=== PATIENT | male | born 1970 | race Caucasian/White ===

== ENCOUNTER 2016-08-29 10:09 | Inpatient (IN) | payer BC ==
[2016-08-29] VITALS (10 sets, daily range): BP systolic 112–171; BP diastolic 75–100
[~2016-08-29] VITALS: Ht 180.3 cm; Wt 158.4 kg
[2016-08-29] MEDS ORDERED: FUROSEMIDE 40 MG/4 ML VIAL. IVP ONE ×2 (10:15→18:00)
[2016-08-29] MEDS ORDERED: NITROGLYCERIN SUBLINGUAL 0.4 MG BOTTLE OF 25. SL PRN (10:15)
--- NOTE | 2016-08-29 10:18 | EKG ---
[facility] [address] [place] [address] Test Date: 2016-08-29 Test Time: 10:14:15 Pat Name: RICHARD CHARLES Department: Room: Gender: M Rn Case Manager: : 1970 Requested By: ANA SKELTON Order Number: [id number] Reading MD: Measurements Intervals Atkinson Rate: 116 P: -1 NM: 138 QRS: 70 QRSD: 86 T: -11 QT: 366 QTc: 508 Interpretive Statements SINUS TACHYCARDIA QRS(T) CONTOUR ABNORMALITY CONSIDER ANTEROSEPTAL MYOCARDIAL DAMAGE CONSIDER INFERIOR MYOCARDIAL DAMAGE RI6.01 Unconfirmed report No previous ECG available for comparison
[2016-08-29 10:20] LABS: HCO3 ABG 22 mmol/L (21-28); PCO2 ABG 34 mmHg (35-46); PH ABG 7.44 (7.35-7.45); SAT O2 ABG 73 % (92-99)
[2016-08-29 10:35] LABS: FIO2 ABG 100; PO2 ABG < 42 mmHg (75-108)
[2016-08-29 10:38] LABS: BASO # 0.1 x10^3/uL (0.0-0.2); BASO % 1 % (0-3); EOS % 1 % (0-3); HEMATOCRIT 44.2 % (39.0-53.0); HEMOGLOBIN 15.7 g/dL (13.0-17.5); LYMPH # 1.9 x10^3/uL (1.0-4.8); LYMPH % 16 % (24-48); MEAN CORPUSCULAR HEMOGLOBIN 35 pg (25-35); MEAN CORPUSCULAR HGB CONC 36 g/dL (31-37); MEAN CORPUSCULAR VOLUME 98 fL (79-100); MONO % 11 % (0-9); NEUT % 71 % (31-73); PLATELET COUNT 198 x10^3/uL (140-400); RED CELL DISTRIBUTION WIDTH 13.6 % (11.5-14.5); WHITE BLOOD COUNT 11.8 x10^3/uL (4.0-11.0)
--- NOTE | 2016-08-29 10:39 | PHYS DOC ---
Past Medical History Past Medical History: Diabetes-Type I, Hypertension Additional Past Surgical Histo: abdominoplasty Alcohol Use: None Drug Use: None Adult General Chief Complaint Chief Complaint: shortness of breath LASHAWN HARDIN Is a pleasant 46-year-old male with sudden onset of shortness of breath is progressively gotten worse and chest are noted. He is admitted to the hospital at [facility] for last 2 weeks and discharged yesterday after being treated for a MSRA infection of the abdominal wall. He's been suffering from this infection for last year as admitted to the hospital with increasing redness and swelling. He said he is receiving IV antibiotics and was at home trying to mobilize. He noted increased shortness of breath peripheral edema that he believes is associated with too much fluid resuscitation during his hospitalization. He denies any fever, chest pain just shortness of breath like a tightness across his chest. He denies any cough, runny nose, abdominal pain, nausea, vomiting, diarrhea. Patient has had no change in medications he's been able to keep his sugars somewhat controlled this of breath is new and he has no history of asthma, COPD or emphysema. he was on vancomycin IV in the hospital and converted to doxycycline and discharged home Differential diagnosis: Acute myocardial ischemia, heart failure, cardiac tamponade, bronchospasm, pulmonary embolism, pneumothorax, pulmonary infection i.e. bronchitis or pneumonia, upper airway obstruction, anaphylaxis, aspiration , psychogenic, pulmonary contusion, toxidrome, pneumomediastinum, noncardiogenic pulmonary edema or ARDS, COPD, tuberculosis, cystic fibrosis, asthma, high altitude pulmonary edema, valvular dysfunction, cardiac dysrhythmia , stroke, neuromuscular diseases like myasthenia gravis gravis, ALS, Guillain- Trejo syndrome, metabolic acidosis to include diabetic ketoacidosis, sepsis, and obstructive disorders like massive obesity On initial presentation my concern is fluid overload congestive heart failure flash pulmonary edema, possibly cardiac ischemia causing valvular abnormalities or rupture of a papillary muscle. Patient also have a flash ards picture based on sepsis, at this point patient is mentating well and stable questions speaking in 4-6 word sentences on CPAP. I initially thought was to change him to BiPAP for any diuresing with an emergent dose of Lasix and nitrates sublingually her to mobilize the extra fluid from his lungs. Initial ABG was completed. ABG timed 10:20 AM Demster is a pH 7.44 PCO2 of 33 PaO2 of 38 bicarbonate of 22 base excess of 0.8 negative this demonstrates that he is not oxygen well and he is likely having an obstructive process within the lower lung ruiz. Again my initial thought is congestive heart failure. Patient was converted to BiPAP. Review of Systems Review of Systems Constitutional: Denies fever or chills [] Eyes: Denies change in visual acuity, redness, or eye pain [] HENT: Denies nasal congestion or sore throat [] Respiratory he does complained of of breath with nonproductive cough Cardiovascular: No additional information not addressed in HPI [] GI: Denies abdominal pain, nausea, vomiting, bloody stools or diarrhea [] : Denies dysuria or hematuria [] Musculoskeletal: Denies back pain or joint pain [] Integument: Is consider redness tenderness to palpation over the entire anterior abdomen. This is the area of his MRSA infection Neurologic: Denies headache, focal weakness or sensory changes [] Endocrine: Denies polyuria or polydipsia [] Current Medications Current Medications Current Medications Medications (Trade) Dose Ordered Sig/Vale Start Time Stop Time Status Last Admin Dose Admin Furosemide (Lasix) 80 mg 1X ONCE 08/29/16 10:15 08/29/16 10:31 DC 08/29/16 10:36 80 MG Nitroglycerin (Nitrostat) 0.4 mg PRN Q5MIN PRN 08/29/16 10:15 Allergies Allergies Allergies Coded Allergies Type Severity Reaction Last Updated Verified Penicillins Allergy Intermediate 08/29/16 Yes Physical Exam Physical Exam Vital signs abnormal on arrival patient hypoxic satting in the low 70s at 72-73 % vital. Patient very tachycardic at 117 patient hypertensive at 160/110. Constitutional: Well developed, well nourished she is morbidly obese with a protuberant abdomen in respiratory distress. He is diaphoretic he is tachypnea tachycardic with a CPAP machine on. Does not demonstrate centralized cyanosis at this time and 46 with sentences. HENT: Normocephalic, atraumatic, bilateral external ears normal, oral pharynx was not evaluated as CPAP machine is present on the patient's face Eyes: PERRLA, EOMI, conjunctiva normal, no discharge. [] Neck: Normal range of motion, no tenderness, supple, no stridor. [] Cardiovascular: Noted sinus tachycardia on physical exam Lungs & Thorax: She has decreased breath sounds bilaterally with coarse rhonchi throat the bases and crackles Abdomen: Bowel sounds normal, soft, no tenderness, no masses, no pulsatile masses. His abdomen was considerable soft tissue Abdomen no pulsatile mass noted. Guarding rebound or organomegaly Skin: There is significant erythema to his abdominal wall local focal tenderness around the umbilicus. Extremities: No tenderness, no cyanosis, no clubbing, ROM intact, no significant +2 pitting edema to the mid thigh bilaterally Neurologic: Alert and oriented X 3, normal motor function, normal sensory function, no focal deficits noted. [] Psychologic: Affect is anxious but very appropriate Current Patient Data Vital Signs Vital Signs Date Time Temp Pulse Resp B/P (MAP) Pulse Ox O2 Delivery O2 Flow Rate FiO2 08/29/16 10:26 97 BiPAP/CPAP Lab Values Laboratory Tests Test 08/29/16 10:11 08/29/16 10:25 O2 Saturation 73 % (92-99) L Arterial Blood pH 7.44 (7.35-7.45) Arterial Blood pCO2 at Patient Temp 34 mmHg (35-46) L Arterial Blood pO2 at Patient Temp < 42 mmHg (75-108) *L Arterial Blood HCO3 22 mmol/L (21-28) Arterial Blood Base Excess -1 mmol/L (-3-3) FiO2 100 White Blood Count 11.8 x10^3/uL (4.0-11.0) H Red Blood Count 4.50 x10^6/uL (4.30-5.70) Hemoglobin 15.7 g/dL (13.0-17.5) Hematocrit 44.2 % (39.0-53.0) Mean Corpuscular Volume 98 fL (79-100) Mean Corpuscular Hemoglobin 35 pg (25-35) Mean Corpuscular Hemoglobin Concent 36 g/dL (31-37) Red Cell Distribution Width 13.6 % (11.5-14.5) Platelet Count 198 x10^3/uL (140-400) Neutrophils (%) (Auto) 71 % (31-73) Lymphocytes (%) (Auto) 16 % (24-48) L Monocytes (%) (Auto) 11 % (0-9) H Eosinophils (%) (Auto) 1 % (0-3) Basophils (%) (Auto) 1 % (0-3) Neutrophils # (Auto) 8.4 x10^3uL (1.8-7.7) H Lymphocytes # (Auto) 1.9 x10^3/uL (1.0-4.8) Monocytes # (Auto) 1.3 x10^3/uL (0.0-1.1) H Eosinophils # (Auto) 0.1 x10^3/uL (0.0-0.7) Basophils # (Auto) 0.1 x10^3/uL (0.0-0.2) Sodium Level 142 mmol/L (136-145) Potassium Level 3.7 mmol/L (3.5-5.1) Chloride Level 103 mmol/L (98-107) Carbon Dioxide Level 29 mmol/L (21-32) Anion Gap 10 (6-14) Blood Urea Nitrogen 8 mg/dL (8-26) Creatinine 0.9 mg/dL (0.7-1.3) Estimated GFR (Cockcroft-Gault) 91.7 BUN/Creatinine Ratio 9 (6-20) Glucose Level 266 mg/dL (70-99) H Calcium Level 8.5 mg/dL (8.5-10.1) Magnesium Level 1.7 mg/dL (1.8-2.4) L Total Bilirubin 0.6 mg/dL (0.2-1.0) Aspartate Amino Transferase (AST) 25 U/L (15-37) Alanine Aminotransferase (ALT) 37 U/L (16-63) Alkaline Phosphatase 76 U/L (46-116) Troponin I Quantitative 0.052 ng/mL (0.000-0.055) Total Protein 6.5 g/dL (6.4-8.2) Albumin 3.1 g/dL (3.4-5.0) L Albumin/Globulin Ratio 0.9 (1.0-1.7) L Laboratory Tests 08/29/16 10:25 Laboratory Tests 08/29/16 10:25 EKG EKG [] Radiology/Procedures Radiology/Procedures [] Course & Med Decision Making Course & Med Decision Making Pertinent Labs and Imaging studies reviewed. (See chart for details) Is now 10:27 AM patient already began to return to normal color saturations are 97% on the BiPAP machine patient has a his fci pressure of 16 and asked that are pressure 6 PEEP of 10 he is moving air better feeling better although he is somewhat tired. We will watch him for signs of fatigue and intubated with necessary given his permission. Initial EKG timed 10:14 AM 08/29/2016 demonstrates a rate of 116 sinus tachycardia with normal P waves normal QRS width QRS width of 86. QTc is mildly prolonged at 508. There is no ST segment T-wave changes consistent with acute cardiac ischemia. We will continue to monitor his heart rate is to improves with supportive care. Is now 11:03 AM patient is feeling markedly better he's produced almost 900 mL' s of dark urine he is feeling markedly better is no longer diaphoretic his color is improved. His lung exam is improved Since his troponin is 0.52 is borderline, does have a slight elevated white blood cell count 11.8, on his ABG demonstrates oxygen saturation is 73% pH of 7.44 PCO2 of 34 PO2 of less than 42 demonstrates an obstruction to oxygenation. He secondary to fluid collection in his lungs. Chest x-ray time 11:06 AM 08/29/2016 demonstrates significant cardiomegaly with increased cephalization of the mediastinal areas of the lungs consistent with congestive heart failure. Read by Dr. Nolasco Laboratory Tests Test 10:11 08/29/16 10:25 O2 Saturation 73 % (92-99) Arterial Blood pH 7.44 (7.35-7.45) Arterial Blood pCO2 at Patient Temp 34 mmHg (35-46) Arterial Blood pO2 at Patient Temp < 42 mmHg (75-108) Arterial Blood HCO3 22 mmol/L (21-28) Arterial Blood Base Excess -1 mmol/L (-3-3) FiO2 100 White Blood Count 11.8 x10^3/uL (4.0-11.0) Red Blood Count 4.50 x10^6/uL (4.30-5.70) Hemoglobin 15.7 g/dL (13.0-17.5) Hematocrit 44.2 % (39.0-53.0) Mean Corpuscular Volume 98 fL (79-100) Mean Corpuscular Hemoglobin 35 pg (25-35) Mean Corpuscular Hemoglobin Concent 36 g/dL (31-37) Red Cell Distribution Width 13.6 % (11.5-14.5) Platelet Count 198 x10^3/uL (140-400) Neutrophils (%) (Auto) 71 % (31-73) Lymphocytes (%) (Auto) 16 % (24-48) Monocytes (%) (Auto) 11 % (0-9) Eosinophils (%) (Auto) 1 % (0-3) Basophils (%) (Auto) 1 % (0-3) Neutrophils # (Auto) 8.4 x10^3uL (1.8-7.7) Lymphocytes # (Auto) 1.9 x10^3/uL (1.0-4.8) Monocytes # (Auto) 1.3 x10^3/uL (0.0-1.1) Eosinophils # (Auto) 0.1 x10^3/uL (0.0-0.7) Basophils # (Auto) 0.1 x10^3/uL (0.0-0.2) Sodium Level 142 mmol/L (136-145) Chloride Level 103 mmol/L (98-107) Carbon Dioxide Level 29 mmol/L (21-32) Anion Gap 10 (6-14) Blood Urea Nitrogen 8 mg/dL (8-26) Estimated GFR (Cockcroft-Gault) 91.7 BUN/Creatinine Ratio 9 (6-20) Glucose Level 266 mg/dL (70-99) Lactic Acid Level 2.0 mmol/L (0.4-2.0) Calcium Level 8.5 mg/dL (8.5-10.1) Total Bilirubin 0.6 mg/dL (0.2-1.0) Aspartate Amino Transf (AST/SGOT) 25 U/L (15-37) Alkaline Phosphatase 76 U/L (46-116) Troponin I Quantitative 0.052 ng/mL (0.000-0.055) Total Protein 6.5 g/dL (6.4-8.2) Albumin 3.1 g/dL (3.4-5.0) Albumin/Globulin Ratio 0.9 (1.0-1.7) Wallpaperer note: On-call internal medicine physician to initially at 11 AM Wallpaperer called at of the service 11:00 am Consult called back at 11:08 am Discussed the case I presented and they agreed with admission. Time of acceptance 11:08 []/Treatment empirically for low-grade fever we agreed on Vibramycin, patient is presently on oral doxycycline we will discontinue that medication blood cultures completed, lactic acid is 2. Impression: congestive heart failure, abdominal wall cellulitis, hypoxia respiratory insufficiency disPosition: Admission to the ICU internal medicine. I spent approximately 45-50 minutes working and engaged directly in the patient care providing critical care evaluation this includes but not limited to time spent engaged in work directly related to the individual patients care. I spent time at the bedside, reviewing test results, discussing the case with staff, documenting the medical record and time spent with EMS discussing specific treatment issues when the patient presented and during his evaluation. Dragon Disclaimer Dragon Disclaimer This electronic medical record was generated, in whole or in part, using a voice recognition dictation system. Departure Departure Impression: Primary Impression: Congestive heart failure Additional Impressions: Hypoxia Respiratory insufficiency Cellulitis Disposition: 09 ADMITTED INPATIENT Admitting Physician: Vinay Rogel Condition: GUARDED Problem Qualifiers BIRDIE NOLASCO MD Aug 29, 2016 10:39
[2016-08-29 10:51] LABS: CALCIUM 8.5 mg/dL (8.5-10.1); CREATININE 0.9 mg/dL (0.7-1.3); GFR 91.7; POTASSIUM 3.7 mmol/L (3.5-5.1)
[2016-08-29 10:58] LABS: ALBUMIN 3.1 g/dL (3.4-5.0); ALBUMIN/GLOBULIN RATIO 0.9 (1.0-1.7); MAGNESIUM 1.7 mg/dL (1.8-2.4); TOTAL BILIRUBIN 0.6 mg/dL (0.2-1.0); TOTAL PROTEIN 6.5 g/dL (6.4-8.2)
[2016-08-29 11:07] LABS: CKMB MASS 0.6 ng/mL (0.0-3.6)
[2016-08-29] MEDS ORDERED: VANCOMYCIN 1GM IVPB FOR OMNI 250 ML IV ONE (11:15)
--- NOTE | 2016-08-29 11:26 | RAD ---
INDICATION: RESPIRATORY DISTRESS COMPARISON: None. FINDINGS: Single view of chest obtained. The cardiomediastinal silhouette is enlarged. Prominent interstitial markings bilaterally. Hazy opacity in the left perimediastinal region. IMPRESSION: Increased interstitial markings left greater than right. Could be secondary to pulmonary vascular congestion or interstitial infiltrate. There is also hazy opacity in the left perimediastinal region. This could be secondary to enlarged mediastinum within the region or a region of consolidation adjacent to the mediastinum. The cardiac silhouette is enlarged.
[2016-08-29] MEDS ORDERED: VANCOMYCIN 2 GM in IV NORMAL SALINE 500ML BAG 500 ML IV ONE (11:30)
--- NOTE | 2016-08-29 11:55 | ACF ---
Admit Criteria Forms Admit Criteria Forms Admit Criteria Forms HEART FAILURE: COMMON COMPLICATIONS (Place 'X' for any and all applicable criteria): Ongoing inpatient care may be indicated for heart failure with 1 or more of the following (1)(2)(3)(4)(5)(6)(7)(8): [ ]I. New-onset heart failure [ ]II. Acute cardiac ischemia causing or associated with failure [ ]III. Ongoing need for care for primary condition requiring frequent therapy adjustments because of changes in cardiac function (eg, drug dosage changes for drugs that are renally metabolized) [X ]IV. Complications of heart failure, including 1 or more of the following: [ ]a) Hemodynamic instability [ ]b) Pericardial effusion [ ]c) Symptomatic pleural effusion [ ]d) Hypoxemia [ ]e) Tachypnea [ X]f) Dyspnea [ ]g) Syncope [ ]h) Altered mental status [ ]i) Acute renal insufficiency that is severe (reduction of more than 50% in estimated glomerular filtration rate from baseline) or progressive reduction of more than 25% in estimated glomerular filtration rate from baseline, with creatinine continuing to rise) [ ]j) Debilitating anasarca (eg tissue breakdown with infection, inability to void due to edema) (E) [ ]k) Clinically significant metabolic abnormalities due to heart failure (eg, new-onset metabolic acidosis) Extended stay may be needed until ALL of the following are present (1)(3)(18)(41 )(55) [ ]a) Hemodynamic stability [ ]b) Stable and effective diuretic regimen established (or patient on stable dialysis regimen if in chronic renal failure) [ ]c) Volume status acceptable on oral medication [ ]d) Breathing comfortably at rest [ ]e) Saturation of arterial oxygen greater than 90% or at acceptable baseline [ ]f) Pulmonary edema absent or improved [ ]g) Peripheral or sacral edema absent or improved [ ]h) Renal function stable and manageable at a lower level of care [ ]i) Complications (eg, pleural effusion) resolved or manageable at a lower level of care [ ]g) Patient or caregiver has received written discharge instructions or educational material addressing activity level, diet, discharge medications, follow-up appointment, weight monitoring, and what to do if symptoms worsen.(25)(26) The original [employer] content created by [facility] [employer] has been revised. The portions of the content which have been revised are identified through the use of italic text, and [facility] has neither reviewed nor approved the modified material.All other unmodified content is copyright [facility]. Please see references footnoted in the original [facility] edition 2014 NEAL DE LOS SANTOS Aug 29, 2016 11:55
[2016-08-29 12:17] LABS: HCO3 ABG 24 mmol/L (21-28); PCO2 ABG 35 mmHg (35-46); PH ABG 7.45 (7.35-7.45); PO2 ABG 74 mmHg (75-108); SAT O2 ABG 94 % (92-99)
[2016-08-29 13:14] LABS: FIO2 ABG 90
--- NOTE | 2016-08-29 14:18 | PDOC1 ---
History and Physical History of Present Illness History of Present Illness Date of exam: 08/29/2016 Chief complaint: Shortness of breath History of present illness: A 46-year-old male patient with prior history of type 2 diabetes mellitus and and hypertension admitted to the hospital to ER for sudden onset of shortness of breath for one day. While patient was trying to walk she noticed increased shortness of breath day before yesterday he was discharged from [facility] after he was treated for a abdominal cellulitis. As per the patient he received lots of IV fluids during his stay. At the time of his admission patient was hypoxic he was requiring a BiPAP, also he did respond well with the IV diuresis he received a 80 mg of IV Lasix in the ER. At the time of examination patient is seen in critical care unit, resting comfortably on BiPAP, denies any chest pain however still have some shortness of breath. Denies any fever or chills his abdominal wall cellulitis is improving. Past medical history: Hypertension, diabetes mellitus, depression Family history: Hypertension Personal history no smoking no alcohol or drug abuse Surgical history abdominoplasty Current Problem List Problem List Problems Medical Problems: (1) Cellulitis Status: Acute (2) Congestive heart failure Status: Acute (3) Hypoxia Status: Acute (4) Respiratory insufficiency Status: Acute Current Medications Current Medications Current Medications Medications (Trade) Dose Ordered Sig/Vale Start Time Stop Time Status Last Admin Dose Admin Furosemide (Lasix) 80 mg 1X ONCE 08/29/16 10:15 08/29/16 10:31 DC 08/29/16 10:36 80 MG Nitroglycerin (Nitrostat) 0.4 mg PRN Q5MIN PRN 08/29/16 10:15 Vancomycin HCl 250 ml @ 250 mls/hr 1X ONCE 08/29/16 11:15 08/29/16 12:14 UNV Vancomycin HCl 2 gm/Sodium Chloride 500 ml @ 250 mls/hr 1X ONCE 08/29/16 11:30 08/29/16 13:29 DC Allergies Allergies Allergies Coded Allergies Type Severity Reaction Last Updated Verified Penicillins Allergy Intermediate 08/29/16 Yes ROS Review of System CONSTITUTIONAL: No fever or chills EYES: No recent changes SKIN: No rash or itching CARDIOVASCULAR: No chest pain, syncope, palpitations, or edema RESPIRATORY: SOB GASTROINTESTINAL: No nausea, vomiting or abdominal pain NEUROLOGICAL: No headaches or weakness ENDOCRINE: No cold or heat intolerance GENITOURINARY: No urgency or frequency of urination MUSCULOSKELETAL: No back pain or joint pain LYMPHATICS: No enlarged lymph nodes PSYCHIATRIC: No anxiety or depression Physical Exam Physical Exam GEN.: No apparent distress. Alert and oriented times 3, on bipap HEENT: Head is normocephalic, atraumatic NECK: Supple. LUNGS: Rales and decreased BS HEART: RRR, S1, S2 present. Peripheral pulses intact ABDOMEN: Soft, nontender. Positive bowel sounds. Distended, rash resolving. EXTREMITIES: severe edema. NEUROLOGIC: Normal speech, normal tone PSYCHIATRIC: Normal affect, normal mood. SKIN: rash round umbilicus, and scrotum Vitals Vitals Vital Signs Date Time Temp Pulse Resp B/P (MAP) Pulse Ox O2 Delivery O2 Flow Rate FiO2 08/29/16 13:00 95 BiPAP/CPAP 08/29/16 10:10 100.2 119 26 160/100 (120) 100.2 Labs Labs Laboratory Tests Test 08/29/16 10:11 08/29/16 10:25 08/29/16 11:59 08/29/16 13:25 O2 Saturation 73 % (92-99) 94 % (92-99) Arterial Blood pH 7.44 (7.35-7.45) 7.45 (7.35-7.45) Arterial Blood pCO2 at Patient Temp 34 mmHg (35-46) 35 mmHg (35-46) Arterial Blood pO2 at Patient Temp < 42 mmHg (75-108) 74 mmHg (75-108) Arterial Blood HCO3 22 mmol/L (21-28) 24 mmol/L (21-28) Arterial Blood Base Excess -1 mmol/L (-3-3) 1 mmol/L (-3-3) FiO2 100 90 White Blood Count 11.8 x10^3/uL (4.0-11.0) Red Blood Count 4.50 x10^6/uL (4.30-5.70) Hemoglobin 15.7 g/dL (13.0-17.5) Hematocrit 44.2 % (39.0-53.0) Mean Corpuscular Volume 98 fL (79-100) Mean Corpuscular Hemoglobin 35 pg (25-35) Mean Corpuscular Hemoglobin Concent 36 g/dL (31-37) Red Cell Distribution Width 13.6 % (11.5-14.5) Platelet Count 198 x10^3/uL (140-400) Neutrophils (%) (Auto) 71 % (31-73) Lymphocytes (%) (Auto) 16 % (24-48) Monocytes (%) (Auto) 11 % (0-9) Eosinophils (%) (Auto) 1 % (0-3) Basophils (%) (Auto) 1 % (0-3) Neutrophils # (Auto) 8.4 x10^3uL (1.8-7.7) Lymphocytes # (Auto) 1.9 x10^3/uL (1.0-4.8) Monocytes # (Auto) 1.3 x10^3/uL (0.0-1.1) Eosinophils # (Auto) 0.1 x10^3/uL (0.0-0.7) Basophils # (Auto) 0.1 x10^3/uL (0.0-0.2) Sodium Level 142 mmol/L (136-145) Potassium Level 3.7 mmol/L (3.5-5.1) Chloride Level 103 mmol/L (98-107) Carbon Dioxide Level 29 mmol/L (21-32) Anion Gap 10 (6-14) Blood Urea Nitrogen 8 mg/dL (8-26) Creatinine 0.9 mg/dL (0.7-1.3) Estimated GFR (Cockcroft-Gault) 91.7 BUN/Creatinine Ratio 9 (6-20) Glucose Level 266 mg/dL (70-99) Lactic Acid Level 2.0 mmol/L (0.4-2.0) 1.2 mmol/L (0.4-2.0) Calcium Level 8.5 mg/dL (8.5-10.1) Magnesium Level 1.7 mg/dL (1.8-2.4) Total Bilirubin 0.6 mg/dL (0.2-1.0) Aspartate Amino Transf (AST/SGOT) 25 U/L (15-37) Alanine Aminotransferase (ALT/SGPT) 37 U/L (16-63) Alkaline Phosphatase 76 U/L (46-116) Creatine Kinase 124 U/L (39-308) Creatine Kinase MB (Mass) 0.6 ng/mL (0.0-3.6) Creatine Kinase MB Relative Index 0.5 % (0-4) Troponin I Quantitative 0.052 ng/mL (0.000-0.055) Total Protein 6.5 g/dL (6.4-8.2) Albumin 3.1 g/dL (3.4-5.0) Albumin/Globulin Ratio 0.9 (1.0-1.7) Laboratory Tests Test 08/29/16 10:11 08/29/16 10:25 08/29/16 11:59 08/29/16 13:25 O2 Saturation 73 % (92-99) 94 % (92-99) Arterial Blood pH 7.44 (7.35-7.45) 7.45 (7.35-7.45) Arterial Blood pCO2 at Patient Temp 34 mmHg (35-46) 35 mmHg (35-46) Arterial Blood pO2 at Patient Temp < 42 mmHg (75-108) 74 mmHg (75-108) Arterial Blood HCO3 22 mmol/L (21-28) 24 mmol/L (21-28) Arterial Blood Base Excess -1 mmol/L (-3-3) 1 mmol/L (-3-3) FiO2 100 90 White Blood Count 11.8 x10^3/uL (4.0-11.0) Red Blood Count 4.50 x10^6/uL (4.30-5.70) Hemoglobin 15.7 g/dL (13.0-17.5) Hematocrit 44.2 % (39.0-53.0) Mean Corpuscular Volume 98 fL (79-100) Mean Corpuscular Hemoglobin 35 pg (25-35) Mean Corpuscular Hemoglobin Concent 36 g/dL (31-37) Red Cell Distribution Width 13.6 % (11.5-14.5) Platelet Count 198 x10^3/uL (140-400) Neutrophils (%) (Auto) 71 % (31-73) Lymphocytes (%) (Auto) 16 % (24-48) Monocytes (%) (Auto) 11 % (0-9) Eosinophils (%) (Auto) 1 % (0-3) Basophils (%) (Auto) 1 % (0-3) Neutrophils # (Auto) 8.4 x10^3uL (1.8-7.7) Lymphocytes # (Auto) 1.9 x10^3/uL (1.0-4.8) Monocytes # (Auto) 1.3 x10^3/uL (0.0-1.1) Eosinophils # (Auto) 0.1 x10^3/uL (0.0-0.7) Basophils # (Auto) 0.1 x10^3/uL (0.0-0.2) Sodium Level 142 mmol/L (136-145) Potassium Level 3.7 mmol/L (3.5-5.1) Chloride Level 103 mmol/L (98-107) Carbon Dioxide Level 29 mmol/L (21-32) Anion Gap 10 (6-14) Blood Urea Nitrogen 8 mg/dL (8-26) Creatinine 0.9 mg/dL (0.7-1.3) Estimated GFR (Cockcroft-Gault) 91.7 BUN/Creatinine Ratio 9 (6-20) Glucose Level 266 mg/dL (70-99) Lactic Acid Level 2.0 mmol/L (0.4-2.0) 1.2 mmol/L (0.4-2.0) Calcium Level 8.5 mg/dL (8.5-10.1) Magnesium Level 1.7 mg/dL (1.8-2.4) Total Bilirubin 0.6 mg/dL (0.2-1.0) Aspartate Amino Transf (AST/SGOT) 25 U/L (15-37) Alanine Aminotransferase (ALT/SGPT) 37 U/L (16-63) Alkaline Phosphatase 76 U/L (46-116) Creatine Kinase 124 U/L (39-308) Creatine Kinase MB (Mass) 0.6 ng/mL (0.0-3.6) Creatine Kinase MB Relative Index 0.5 % (0-4) Troponin I Quantitative 0.052 ng/mL (0.000-0.055) Total Protein 6.5 g/dL (6.4-8.2) Albumin 3.1 g/dL (3.4-5.0) Albumin/Globulin Ratio 0.9 (1.0-1.7) VTE Prophylaxis Ordered VTE Prophylaxis Devices: Yes VTE Pharmacological Prophylaxi: Yes Assessment/Plan Assessment/Plan Acute hypoxic respiratory failure present on admission currently on BiPAP Volume overload possible due to increased IV administration Obesity BMI 48.1 diabetes mellitus with hyperglycemia hypertension Depression chronic stable Plan Continue IV diuresis order of 40 mg of IV Lasix 1 and monitor intake and output currently patient is on Ruby catheter Monitor renal function CBC BMP in a.m. Echocardiogram has been ordered patient had extensive swelling of his bilateral lower extremities knees to rule out any congestive heart failure Monitor troponins however patient denies any active chest pain He might have a component of sleep apnea Sliding scale insulin to home dose of Levemir EKG personally reviewed showed sinus tachycardia patient's symptoms persisted even after diuresis I will order CT of the chest to rule out any PE, continue DVT prophylaxis at this time As needed hydralazine for hypertension Continue BiPAP, ABGs daily in a.m. next consult pulmonology cc time 33 min. YECENIA OSWALD MD Aug 29, 2016 14:18
[2016-08-29] MEDS ORDERED: ENOXAPARIN 40 MG/0.4 ML SYRINGE. SQ SCH (14:30)
[2016-08-29] MEDS ORDERED: ONDANSETRON PF 4 MG/2 ML VIAL. IV PRN (14:30)
[2016-08-29] MEDS ORDERED: HYDROcodone/APAP 5/325MG 1 TAB TABLET PO PRN (14:30)
[2016-08-29] MEDS ORDERED: ALBUTEROL SULFATE 2.5 MG/3 ML NEBU. NEB PRN (14:30)
[2016-08-29] MEDS ORDERED: INSU100I13 SQ (14:32)
[2016-08-29] MEDS ORDERED: DIVA500T17 PO (14:32)
[2016-08-29] MEDS ORDERED: BUPR300T4 PO (14:32)
[2016-08-29] MEDS ORDERED: DOXY100C2 PO (14:32)
[2016-08-29] MEDS ORDERED: BENA40TA2 PO (14:32)
[2016-08-29] MEDS ORDERED: ZIPR40CA2 PO (14:32)
[2016-08-29] MEDS ORDERED: SITA1TAB11 PO (14:32)
[2016-08-29] MEDS ORDERED: HYDR-2758 PO (14:32)
[2016-08-29] MEDS ORDERED: TRAZ50TA15 PO (14:32)
[2016-08-29] MEDS ORDERED: INSU100C4 SQ (14:32)
[2016-08-29] MEDS ORDERED: PROP10TA PO (14:32)
[2016-08-29] MEDS ORDERED: ATOR20TA58 PO (14:32)
[2016-08-29] MEDS ORDERED: SULFUR HEXAFLUORIDE MICROSPHR 25 MG VIAL. IVP ONE ×3 (15:00→18:57)
[2016-08-29] MEDS ORDERED: DEXTROSE 50% 25 GM / 50ML DISP.SYRIN. IV PRN (15:15)
[2016-08-29] MEDS ORDERED: METOCLOPRAMIDE HCL 10 MG/2 ML VIAL. IV ONE (15:45)
[2016-08-29] MEDS: INSULIN ASPART 300 UNITS/3 ML INSULN.PEN SQ SCH ×2 (17:19→17:20)
--- NOTE | 2016-08-29 18:26 | CARD ---
APPROVED REPORT EXAM: Two-dimensional and M-mode echocardiogram with Doppler and color Doppler. Other Information Quality : FairHR: 90bpm Rhythm : NSR INDICATION Cardiac symptoms Echo Enhancing Agent Indication: Endocardial border delineation Agent/Amount Used: Lumason 3mL RISK FACTORS Hypertension Obesity 2D DIMENSIONS RVDd2.9 (2.9-3.5cm)Left Atrium(2D)3.7 (1.6-4.0cm) IVSd1.2 (0.7-1.1cm)Aortic Root(2D)3.5 (2.0-3.7cm) LVDd4.6 (3.9-5.9cm)LVOT Diameter2.5 (1.8-2.4cm) PWd1.2 (0.7-1.1cm)LVDs3.1 (2.5-4.0cm) FS (%) 31.3 %SV56.6 ml LVEF(%)59.2 (>50%) Aortic Valve AoV Peak Ian.86.6cm/sAoV VTI14.7cm AO Peak GR.3.0mmHgLVOT Peak Ian.83.5cm/s AO Mean GR.1mmHgAVA (VMAX)4.59cm2 Mitral Valve MV E Bucnmhwu29.0cm/sMV E Peak Gr.3mmHg MV DECEL [id number] A Xrgzminc05.5cm/s MV E Mean Gr.2mmHgE/A Ratio1.2 MV A [id number] Pulmonary Valve PV Peak Umuwdrwe32.1cm/s LEFT VENTRICLE The left ventricle is normal size. There is mild concentric left ventricular hypertrophy. The left ve ntricular systolic function is normal and the ejection fraction is within normal range. The Ejection Fraction is 60-65%. There is normal LV segmental wall motion. The left ventricular diastolic function and filling is normal. RIGHT VENTRICLE The right ventricle is normal size. There is normal right ventricular wall thickness. The right ventr icular systolic function is normal. ATRIA The left atrium size is normal. The right atrium size is normal. The interatrial septum is intact wit h no evidence for an atrial septal defect or patent foramen ovale as noted on 2-D or Doppler imaging. AORTIC VALVE The aortic valve is not well visualized but appears to open well. Doppler and Color Flow revealed no significant aortic regurgitation. There is no significant aortic valvular stenosis. MITRAL VALVE The mitral valve is normal in structure and function. There is no evidence of mitral valve prolapse. There is no mitral valve stenosis. Doppler and Color Flow revealed no mitral valve regurgitation note d. TRICUSPID VALVE The tricuspid valve is not well visualized but appears to open well. Doppler and Color Flow revealed trace tricuspid regurgitation. Unable to determine pulmonary artery pressure at exam time. PULMONIC VALVE The pulmonic valve is not visualized, unable to assess. GREAT VESSELS The aortic root is normal in size. The ascending aorta is normal in size. The pulmonary is not visual ized, unable to assess. The IVC is normal in size and collapses >50% with inspiration. PERICARDIAL EFFUSION There is no evidence of significant pericardial effusion. Critical Notification Critical Value: No <Conclusion> Technically difficult Echocardiogram because of weight The left ventricle is normal size. There is mild concentric left ventricular hypertrophy. The left ventricular systolic function is normal and the ejection fraction is within normal range. The Ejection Fraction is 60-65%. The left ventricular diastolic function and filling is normal. There is no evidence of significant pericardial effusion. There is no mitral stenosis or regurgitation The left atrium is of a normal size There is no aortic stenosis or regurgitation. the right ventricle is of a normal size with normal systolic function. No significant tricuspid regurgitation to be able to evaluate the right ventricular systolic pressure . The pulmonic valve is not visualized, unable to assess.
[2016-08-29] MEDS: IPRATRPIUM/ALBUTEROL 0.5/2.5MG 3 ML NEBU. NEB SCH (19:27)
[2016-08-29] MEDS: BUDESONIDE 0.5 MG/2 ML NEBU. NEB SCH (19:27)
[2016-08-29] MEDS: VANCOMYCIN 2 GM in IV NORMAL SALINE 500ML BAG 500 ML IV SCH (20:24)
[2016-08-29] MEDS: VANCOMYCIN PER PHARMACY MC PRN ×2 (20:30→20:35)
[2016-08-29] MEDS: ZIPRASIDONE 20 MG CAPSULE PO SCH (20:32)
[2016-08-29] MEDS: PROPRANOLOL 10 MG TABLET. PO SCH (20:33)
[2016-08-29] MEDS: ENOXAPARIN 40 MG/0.4 ML SYRINGE. SQ SCH (20:33)
[2016-08-29] MEDS: ATORVASTATIN CALCIUM 20 MG TABLET PO SCH (20:33)
[2016-08-29] MEDS: DOXYCYCLINE HYCLATE 100 MG TABLET PO SCH (20:33)
[2016-08-29] MEDS: traZODone 50 MG TABLET. PO SCH (20:33)
[2016-08-29] MEDS: INSULIN DETEMIR 300 UNITS/3 ML INSULN.PEN. SQ SCH (20:35)
[2016-08-30] VITALS (24 sets, daily range): BP systolic 110–163; BP diastolic 18–93
[2016-08-30] MEDS: VANCOMYCIN 2 GM in IV NORMAL SALINE 500ML BAG 500 ML IV SCH ×2 (03:50→12:29)
[2016-08-30 06:00] LABS: CALCIUM 7.9 mg/dL (8.5-10.1); CREATININE 0.9 mg/dL (0.7-1.3); GFR 91.7; POTASSIUM 3.3 mmol/L (3.5-5.1)
[2016-08-30 06:01] LABS: BASO % 0 % (0-3); EOS % 1 % (0-3); HEMATOCRIT 39.1 % (39.0-53.0); HEMOGLOBIN 13.6 g/dL (13.0-17.5); LYMPH # 2.5 x10^3/uL (1.0-4.8); LYMPH % 22 % (24-48); MEAN CORPUSCULAR HEMOGLOBIN 35 pg (25-35); MEAN CORPUSCULAR HGB CONC 35 g/dL (31-37); MEAN CORPUSCULAR VOLUME 100 fL (79-100); MONO % 14 % (0-9); NEUT % 64 % (31-73); PLATELET COUNT 155 x10^3/uL (140-400); RED BLOOD COUNT 3.91 x10^6/uL (4.30-5.70); RED CELL DISTRIBUTION WIDTH 13.3 % (11.5-14.5); WHITE BLOOD COUNT 11.5 x10^3/uL (4.0-11.0)
[2016-08-30] MEDS: BUDESONIDE 0.5 MG/2 ML NEBU. NEB SCH ×2 (07:56→19:21)
[2016-08-30] MEDS: IPRATRPIUM/ALBUTEROL 0.5/2.5MG 3 ML NEBU. NEB SCH ×4 (07:56→19:21)
[2016-08-30 08:07] LABS: HCO3 ABG 28 mmol/L (21-28); PCO2 ABG 43 mmHg (35-46); PH ABG 7.44 (7.35-7.45); PO2 ABG 65 mmHg (75-108); SAT O2 ABG 92 % (92-99)
--- NOTE | 2016-08-30 08:07 | PDOC2 ---
CARDIOLOGY CONSULT NOTE CHEIF COMPLAINT: Shortness of air Problems: HPI: Pleasant 46 y.o man comes with progressive dyspnea. Admitted to [facility] for sepsis, given IVF. Over last 48 hours was having more shortness of breath. After admission to [facility] noted to be hypoxic, put on bipap and diuresed. Feels much better but still desaturates. No chest pain prior to this admission. No prior cardiac issues. CXR with pulm congestion. 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 ALLERGIES: Allergies Coded Allergies Type Severity Reaction Last Updated Verified Penicillins Allergy Intermediate 08/29/16 Yes ROS: Negative for 11/22 systems reviewed unless otherwise noted above in HPI. PHYSICAL EXAM: Vital Signs: Vital Signs Date Time Temp Pulse Resp B/P (MAP) Pulse Ox O2 Delivery O2 Flow Rate FiO2 08/30/16 07:49 96 BiPAP/CPAP 08/30/16 07:00 80 21 118/70 (86) 08/30/16 04:00 99.3 99.3 I & O Intake and Output 08/30/16 07:00 Output Total 3475 ml Balance -3475 ml Output Urine Total 3475 ml Physical Exam: GEN.: No apparent distress. Alert and oriented. HEENT: Head is normocephalic, atraumatic NECK: Supple. LUNGS: Bilateral rhonchi. HEART: RRR, S1, S2 present. Peripheral pulses intact ABDOMEN: Soft, nontender. Positive bowel sounds. EXTREMITIES: Without any cyanosis. NEUROLOGIC: Normal speech, normal tone PSYCHIATRIC: Normal affect, normal mood. SKIN: No ulcerations DIAGNOSTIC TESTING: EKG: SR CXR: Mild congestion Hgb 13.6, Plt 155, K 3.3 ASSESSMENT: 1. Acute diastolic HF - likely secondary to volume overload 2. HTN - well controlled. 3. Dyslipidemia - On statin 4. Acute respiratory failure - ? obesity hypoventilation, ? OMAR. PLAN: 1. Give lasix 40mg IVP x 1 2. Continue other meds 3. Repeat ABG today - pending 4. Echo reviewed, normal LV function. Supportive care. No clear MA by labs. Will follow along. FRANCK VERA MD Aug 30, 2016 08:07
[2016-08-30 08:08] LABS: FIO2 ABG 55
[2016-08-30] MEDS: PROPRANOLOL 10 MG TABLET. PO SCH ×2 (08:23→21:07)
[2016-08-30] MEDS: ZIPRASIDONE 20 MG CAPSULE PO SCH ×2 (08:23→21:08)
[2016-08-30] MEDS: buPROPion XL 150 MG TAB.ER.24H. PO SCH (08:23)
[2016-08-30] MEDS: LINAGLIPTIN 5 MG TABLET PO SCH (08:23)
[2016-08-30] MEDS: LISINOPRIL 40 MG TABLET. PO SCH (08:24)
[2016-08-30] MEDS: DOXYCYCLINE HYCLATE 100 MG TABLET PO SCH ×2 (08:24→21:07)
[2016-08-30] MEDS: ENOXAPARIN 40 MG/0.4 ML SYRINGE. SQ SCH ×2 (08:26→21:06)
[2016-08-30] MEDS: INSULIN ASPART 300 UNITS/3 ML INSULN.PEN SQ SCH ×6 (08:30→18:23)
[2016-08-30] MEDS ORDERED: POTASSIUM CHLORIDE 20 MEQ TABLET.ER. PO ONE ×2 (08:45→14:00)
[2016-08-30] MEDS ORDERED: FUROSEMIDE 40 MG/4 ML VIAL. IVP ONE (08:45)
[2016-08-30] MEDS ORDERED: DIVALPROEX EXTENDED RELEASE 500 MG TAB.ER.24H. PO SCH (09:00)
[2016-08-30] MEDS ORDERED: PANTOPRAZOLE 40 MG TABLET.DR. PO ONE (10:15)
--- NOTE | 2016-08-30 10:15 | PDOC ---
Provider Note Provider Note [id number] acute resp fail abnl cxr acute diastolic chf see orders. EFE UMANA MD Aug 30, 2016 10:15
[2016-08-30] MEDS ORDERED: CONTRAST GIVEN MC PRN (11:45)
[2016-08-30] MEDS ORDERED: IOHEXOL 300 MG/ML 75 ML VIAL IV ONE (12:00)
--- NOTE | 2016-08-30 12:47 | RAD ---
Indication shortness of breath. Axial images through the chest were obtained. Examination was targeted for the detection of pulmonary embolus. MIP images were generated and reviewed. Approximately 75 cc of Omnipaque 300 was administered intravenously. No prior CT imaging is available of the chest. Note is made of a previous plain film examination of the chest yesterday. Imaging through the upper abdomen is unremarkable. The thoracic aorta is unremarkable. There are a few mediastinal lymph nodes. These are likely reactive and of doubtful clinical significance. There are a few hilar lymph nodes bilaterally also of doubtful clinical significance. This study evaluating for pulmonary embolus is limited. There is not optimal opacification of the pulmonary arteries. There is a possible filling defect in the distal right main pulmonary artery. The finding is not certain. There are possible filling defects in the lobar branches to the left lower lobe. No large central pulmonary emboli are seen. There is dense consolidation in the left upper and lower lobes compatible with pneumonia there is a patchy infiltrate in the right upper lobe compatible with same. Some volume loss is seen in the right middle lobe compatible with atelectasis or pneumonia and similarly there is some volume loss in the right lower lobe compatible with atelectasis, scar or pneumonia. Findings were communicated to Stacy, one of the ICU nurses, at the time of dictation IMPRESSION: Extensive infiltrates in the left upper and lower lobes and to a lesser extent in the right upper lobe most compatible with pneumonia. Volume loss in the right middle and lower lobes may reflect atelectasis, scar or pneumonia. The study evaluating for pulmonary embolus is limited. There are no large central pulmonary emboli. Thrombus distally in the right main pulmonary artery and in the lobar branches to the left lower lobe is not excluded PQRS Compliance Statement: One or more of the following individualized dose reduction techniques were utilized for this examination: 1. Automated exposure control 2. Adjustment of the mA and/or kV according to patient size 3. Use of iterative reconstruction technique
[2016-08-30] MEDS: VANCOMYCIN PER PHARMACY MC PRN ×3 (13:53→14:01)
--- NOTE | 2016-08-30 14:01 | PDOC ---
PROGRESS NOTES Chief Complaint Chief Complaint Complaint: Shortness of breath Assessment and plan Acute hypoxic respiratory failure Volume overload with possible diastolic dysfunction, due to administration of IV fluids Abdominal wall cellulitis Leukocytosis Morbid obesity Hyperglycemia with type 2 diabetes mellitus insulin-dependent Plan continue diuresis with IV Lasix, monitor intake and output Monitor electrolytes, replace potassium and magnesium magnesium Replace potassium Continue sliding scale insulin Continue as needed BiPAP Monitor ABGs in a.m. Echo report reviewed Appreciate cardiology and pulmonology input Continue vancomycin Renal dosing of vancomycin per pharmacy Continue doxycycline Monitor cultures Discussed nursing staff and records from our [facility] History of Present Illness History of Present Illness Shortness of breath is better No fever No chest pain Feeling better Vitals Vitals Vital Signs Date Time Temp Pulse Resp B/P (MAP) Pulse Ox O2 Delivery O2 Flow Rate FiO2 08/30/16 13:22 93 NonRebreather Mask 15.0 08/30/16 08:24 80 128/80 08/30/16 07:00 21 08/30/16 04:00 99.3 99.3 Physical Exam General: Alert, Oriented X3 Heart: Regular rate, Normal S1, Normal S2 Lungs: Clear Abdomen: Normal bowel sounds, Other (edema +2) Skin: Other (decreased redness on the abdomen) Labs LABS Laboratory Tests Test 08/29/16 17:16 08/29/16 18:35 08/29/16 20:25 08/30/16 04:30 Glucose (Fingerstick) 300 mg/dL (70-99) 218 mg/dL (70-99) Troponin I Quantitative 0.022 ng/mL (0.000-0.055) < 0.017 ng/mL (0.000-0.055) White Blood Count 11.5 x10^3/uL (4.0-11.0) Red Blood Count 3.91 x10^6/uL (4.30-5.70) Hemoglobin 13.6 g/dL (13.0-17.5) Hematocrit 39.1 % (39.0-53.0) Mean Corpuscular Volume 100 fL (79-100) Mean Corpuscular Hemoglobin 35 pg (25-35) Mean Corpuscular Hemoglobin Concent 35 g/dL (31-37) Red Cell Distribution Width 13.3 % (11.5-14.5) Platelet Count 155 x10^3/uL (140-400) Neutrophils (%) (Auto) 64 % (31-73) Lymphocytes (%) (Auto) 22 % (24-48) Monocytes (%) (Auto) 14 % (0-9) Eosinophils (%) (Auto) 1 % (0-3) Basophils (%) (Auto) 0 % (0-3) Neutrophils # (Auto) 7.3 x10^3uL (1.8-7.7) Lymphocytes # (Auto) 2.5 x10^3/uL (1.0-4.8) Monocytes # (Auto) 1.6 x10^3/uL (0.0-1.1) Eosinophils # (Auto) 0.1 x10^3/uL (0.0-0.7) Basophils # (Auto) 0.0 x10^3/uL (0.0-0.2) Sodium Level 144 mmol/L (136-145) Potassium Level 3.3 mmol/L (3.5-5.1) Chloride Level 105 mmol/L (98-107) Carbon Dioxide Level 31 mmol/L (21-32) Anion Gap 8 (6-14) Blood Urea Nitrogen 10 mg/dL (8-26) Creatinine 0.9 mg/dL (0.7-1.3) Estimated GFR (Cockcroft-Gault) 91.7 Glucose Level 158 mg/dL (70-99) Calcium Level 7.9 mg/dL (8.5-10.1) Test 08/30/16 08:00 08/30/16 08:08 08/30/16 11:40 08/30/16 12:27 O2 Saturation 92 % (92-99) Arterial Blood pH 7.44 (7.35-7.45) Arterial Blood pCO2 at Patient Temp 43 mmHg (35-46) Arterial Blood pO2 at Patient Temp 65 mmHg (75-108) Arterial Blood HCO3 28 mmol/L (21-28) Arterial Blood Base Excess 4 mmol/L (-3-3) FiO2 55 Glucose (Fingerstick) 157 mg/dL (70-99) 115 mg/dL (70-99) Vancomycin Level Trough 19.7 mcg/mL (10.0-20.0) Vancomycin Last Dose Date 08/30/16 Vancomycin Last Dose Time 0400 Assessment and Plan Assessmemt and Plan Problems Medical Problems: (1) Cellulitis Status: Acute (2) Congestive heart failure Status: Acute (3) Hypoxia Status: Acute (4) Respiratory insufficiency Status: Acute Problems: Comment Review of Relevant I have reviewed the following items devin (where applicable) has been applied. Labs Laboratory Tests Test 08/29/16 10:11 08/29/16 10:25 08/29/16 11:59 08/29/16 13:25 O2 Saturation 73 % (92-99) 94 % (92-99) Arterial Blood pH 7.44 (7.35-7.45) 7.45 (7.35-7.45) Arterial Blood pCO2 at Patient Temp 34 mmHg (35-46) 35 mmHg (35-46) Arterial Blood pO2 at Patient Temp < 42 mmHg (75-108) 74 mmHg (75-108) Arterial Blood HCO3 22 mmol/L (21-28) 24 mmol/L (21-28) Arterial Blood Base Excess -1 mmol/L (-3-3) 1 mmol/L (-3-3) FiO2 100 90 White Blood Count 11.8 x10^3/uL (4.0-11.0) Red Blood Count 4.50 x10^6/uL (4.30-5.70) Hemoglobin 15.7 g/dL (13.0-17.5) Hematocrit 44.2 % (39.0-53.0) Mean Corpuscular Volume 98 fL (79-100) Mean Corpuscular Hemoglobin 35 pg (25-35) Mean Corpuscular Hemoglobin Concent 36 g/dL (31-37) Red Cell Distribution Width 13.6 % (11.5-14.5) Platelet Count 198 x10^3/uL (140-400) Neutrophils (%) (Auto) 71 % (31-73) Lymphocytes (%) (Auto) 16 % (24-48) Monocytes (%) (Auto) 11 % (0-9) Eosinophils (%) (Auto) 1 % (0-3) Basophils (%) (Auto) 1 % (0-3) Neutrophils # (Auto) 8.4 x10^3uL (1.8-7.7) Lymphocytes # (Auto) 1.9 x10^3/uL (1.0-4.8) Monocytes # (Auto) 1.3 x10^3/uL (0.0-1.1) Eosinophils # (Auto) 0.1 x10^3/uL (0.0-0.7) Basophils # (Auto) 0.1 x10^3/uL (0.0-0.2) Sodium Level 142 mmol/L (136-145) Potassium Level 3.7 mmol/L (3.5-5.1) Chloride Level 103 mmol/L (98-107) Carbon Dioxide Level 29 mmol/L (21-32) Anion Gap 10 (6-14) Blood Urea Nitrogen 8 mg/dL (8-26) Creatinine 0.9 mg/dL (0.7-1.3) Estimated GFR (Cockcroft-Gault) 91.7 BUN/Creatinine Ratio 9 (6-20) Glucose Level 266 mg/dL (70-99) Lactic Acid Level 2.0 mmol/L (0.4-2.0) 1.2 mmol/L (0.4-2.0) Calcium Level 8.5 mg/dL (8.5-10.1) Magnesium Level 1.7 mg/dL (1.8-2.4) Total Bilirubin 0.6 mg/dL (0.2-1.0) Aspartate Amino Transf (AST/SGOT) 25 U/L (15-37) Alanine Aminotransferase (ALT/SGPT) 37 U/L (16-63) Alkaline Phosphatase 76 U/L (46-116) Creatine Kinase 124 U/L (39-308) Creatine Kinase MB (Mass) 0.6 ng/mL (0.0-3.6) Creatine Kinase MB Relative Index 0.5 % (0-4) Troponin I Quantitative 0.052 ng/mL (0.000-0.055) Total Protein 6.5 g/dL (6.4-8.2) Albumin 3.1 g/dL (3.4-5.0) Albumin/Globulin Ratio 0.9 (1.0-1.7) Test 08/29/16 13:30 08/29/16 17:16 08/29/16 18:35 08/29/16 20:25 Nasal Screen MRSA (PCR) Negative (Negative) Glucose (Fingerstick) 300 mg/dL (70-99) 218 mg/dL (70-99) Troponin I Quantitative 0.022 ng/mL (0.000-0.055) Test 08/30/16 04:30 08/30/16 08:00 08/30/16 08:08 08/30/16 11:40 White Blood Count 11.5 x10^3/uL (4.0-11.0) Red Blood Count 3.91 x10^6/uL (4.30-5.70) Hemoglobin 13.6 g/dL (13.0-17.5) Hematocrit 39.1 % (39.0-53.0) Mean Corpuscular Volume 100 fL (79-100) Mean Corpuscular Hemoglobin 35 pg (25-35) Mean Corpuscular Hemoglobin Concent 35 g/dL (31-37) Red Cell Distribution Width 13.3 % (11.5-14.5) Platelet Count 155 x10^3/uL (140-400) Neutrophils (%) (Auto) 64 % (31-73) Lymphocytes (%) (Auto) 22 % (24-48) Monocytes (%) (Auto) 14 % (0-9) Eosinophils (%) (Auto) 1 % (0-3) Basophils (%) (Auto) 0 % (0-3) Neutrophils # (Auto) 7.3 x10^3uL (1.8-7.7) Lymphocytes # (Auto) 2.5 x10^3/uL (1.0-4.8) Monocytes # (Auto) 1.6 x10^3/uL (0.0-1.1) Eosinophils # (Auto) 0.1 x10^3/uL (0.0-0.7) Basophils # (Auto) 0.0 x10^3/uL (0.0-0.2) Sodium Level 144 mmol/L (136-145) Potassium Level 3.3 mmol/L (3.5-5.1) Chloride Level 105 mmol/L (98-107) Carbon Dioxide Level 31 mmol/L (21-32) Anion Gap 8 (6-14) Blood Urea Nitrogen 10 mg/dL (8-26) Creatinine 0.9 mg/dL (0.7-1.3) Estimated GFR (Cockcroft-Gault) 91.7 Glucose Level 158 mg/dL (70-99) Calcium Level 7.9 mg/dL (8.5-10.1) Troponin I Quantitative < 0.017 ng/mL (0.000-0.055) O2 Saturation 92 % (92-99) Arterial Blood pH 7.44 (7.35-7.45) Arterial Blood pCO2 at Patient Temp 43 mmHg (35-46) Arterial Blood pO2 at Patient Temp 65 mmHg (75-108) Arterial Blood HCO3 28 mmol/L (21-28) Arterial Blood Base Excess 4 mmol/L (-3-3) FiO2 55 Glucose (Fingerstick) 157 mg/dL (70-99) Vancomycin Level Trough 19.7 mcg/mL (10.0-20.0) Vancomycin Last Dose Date 08/30/16 Vancomycin Last Dose Time 0400 Test 08/30/16 12:27 Glucose (Fingerstick) 115 mg/dL (70-99) Laboratory Tests Test 08/29/16 17:16 08/29/16 18:35 08/29/16 20:25 08/30/16 04:30 Glucose (Fingerstick) 300 mg/dL (70-99) 218 mg/dL (70-99) Troponin I Quantitative 0.022 ng/mL (0.000-0.055) < 0.017 ng/mL (0.000-0.055) White Blood Count 11.5 x10^3/uL (4.0-11.0) Red Blood Count 3.91 x10^6/uL (4.30-5.70) Hemoglobin 13.6 g/dL (13.0-17.5) Hematocrit 39.1 % (39.0-53.0) Mean Corpuscular Volume 100 fL (79-100) Mean Corpuscular Hemoglobin 35 pg (25-35) Mean Corpuscular Hemoglobin Concent 35 g/dL (31-37) Red Cell Distribution Width 13.3 % (11.5-14.5) Platelet Count 155 x10^3/uL (140-400) Neutrophils (%) (Auto) 64 % (31-73) Lymphocytes (%) (Auto) 22 % (24-48) Monocytes (%) (Auto) 14 % (0-9) Eosinophils (%) (Auto) 1 % (0-3) Basophils (%) (Auto) 0 % (0-3) Neutrophils # (Auto) 7.3 x10^3uL (1.8-7.7) Lymphocytes # (Auto) 2.5 x10^3/uL (1.0-4.8) Monocytes # (Auto) 1.6 x10^3/uL (0.0-1.1) Eosinophils # (Auto) 0.1 x10^3/uL (0.0-0.7) Basophils # (Auto) 0.0 x10^3/uL (0.0-0.2) Sodium Level 144 mmol/L (136-145) Potassium Level 3.3 mmol/L (3.5-5.1) Chloride Level 105 mmol/L (98-107) Carbon Dioxide Level 31 mmol/L (21-32) Anion Gap 8 (6-14) Blood Urea Nitrogen 10 mg/dL (8-26) Creatinine 0.9 mg/dL (0.7-1.3) Estimated GFR (Cockcroft-Gault) 91.7 Glucose Level 158 mg/dL (70-99) Calcium Level 7.9 mg/dL (8.5-10.1) Test 08/30/16 08:00 08/30/16 08:08 08/30/16 11:40 08/30/16 12:27 O2 Saturation 92 % (92-99) Arterial Blood pH 7.44 (7.35-7.45) Arterial Blood pCO2 at Patient Temp 43 mmHg (35-46) Arterial Blood pO2 at Patient Temp 65 mmHg (75-108) Arterial Blood HCO3 28 mmol/L (21-28) Arterial Blood Base Excess 4 mmol/L (-3-3) FiO2 55 Glucose (Fingerstick) 157 mg/dL (70-99) 115 mg/dL (70-99) Vancomycin Level Trough 19.7 mcg/mL (10.0-20.0) Vancomycin Last Dose Date 08/30/16 Vancomycin Last Dose Time 0400 Microbiology 08/29/16 Blood Culture - Preliminary, Resulted NO GROWTH AFTER 1 DAY Medications Current Medications Furosemide (Lasix) 80 mg 1X ONCE IVP Last administered on 08/29/16t 10:36; Start 08/29/16 at 10:15; Stop 08/29/16 at 10:31; Status DC Nitroglycerin (Nitrostat) 0.4 mg PRN Q5MIN PRN SL CHEST PAIN; Start 08/29/16 at 10:15 Vancomycin HCl 250 ml @ 250 mls/hr 1X ONCE IV ; Start 08/29/16 at 11:15; Stop 08/29/16 at 12:14; Status UNV Vancomycin HCl 2 gm/Sodium Chloride 500 ml @ 250 mls/hr 1X ONCE IV Last administered on 08/29/16 12:10; Start 08/29/16 at 11:30; Stop 08/29/16 at 13:29 ; Status DC Enoxaparin Sodium (Lovenox 40mg Syringe) 40 mg Q24H SQ ; Start 08/29/16 at 14:30 ; Stop 08/29/16 at 14:40; Status DC Acetaminophen (Tylenol) 325 mg PRN Q6HRS PRN PO MILD PAIN / TEMP; Start at 14:30 Acetaminophen/ Hydrocodone Bitart (Lortab 5/325) 1 tab PRN Q6HRS PRN PO MODERATE TO SEVERE PAIN; Start 08/29/16 at 14:30; Stop 08/29/16 at 15:31; Status DC Hydralazine HCl (Apresoline) 10 mg PRN Q4HRS PRN IVP ELEVATED BP, SEE COMMENTS ; Start 08/29/16 at 14:30 Ondansetron HCl (Zofran) 4 mg PRN Q8HRS PRN IV NAUSEA/VOMITING; Start 08/29/16 at 14:30 Albuterol Sulfate (Ventolin Neb Soln) 2.5 mg PRN Q4HRS PRN NEB SHORTNESS OF BREATH; Start 08/29/16 at 14:30 Enoxaparin Sodium (Lovenox 40mg Syringe) 40 mg Q12HR SQ Last administered on 08:26; Start 08/29/16 at 21:00 Furosemide (Lasix) 40 mg 1X ONCE IVP Last administered on 08/29/16 17:17; Start 08/29/16 at 18:00; Stop 08/29/16 at 18:01; Status DC Insulin Aspart (NovoLOG) 0-9 UNITS TIDWMEALS SQ Last administered on 08/30/16 08:30; Start 08/29/16 at 17:00 Dextrose (Dextrose 50%-Water Syringe) 12.5 gm PRN Q15MIN PRN IV SEE COMMENTS; Start 08/29/16 at 15:15 Atorvastatin Calcium (Lipitor) 20 mg QHS PO Last administered on 08/29/16 20: 33; Start 08/29/16 at 21:00 Divalproex Sodium (Depakote Er) 2,000 mg DAILY PO ; Start 08/30/16 at 09:00; Stop 08/30/16 at 09:11; Status DC Acetaminophen/ Hydrocodone Bitart (Lortab 5/325) 1 tab PRN Q6HRS PRN PO PAIN; Start 08/29/16 at 15:30 Propranolol HCl (Inderal) 10 mg BID PO Last administered on 08/30/16 08:23; Start 08/29/16 at 21:00 Trazodone HCl (Desyrel) 50 mg QHS PO Last administered on 08/29/16 20:33; Start 08/29/16 at 21:00 Lisinopril (Prinivil) 40 mg DAILY PO Last administered on 08/30/16 08:24; Start 08/30/16 at 09:00 Bupropion HCl (Wellbutrin Xl) 300 mg DAILY PO Last administered on 08/30/16 08 :23; Start 08/30/16 at 09:00 Doxycycline Hyclate (Vibra-Tab) 100 mg BID PO Last administered on 08/30/16 08 :24; Start 08/29/16 at 21:00 Insulin Aspart (NovoLOG) 20 units TIDAC SQ Last administered on 08/30/16 08:30 ; Start 08/29/16 at 16:30 Insulin Detemir (Levemir) 76 units QHS SQ Last administered on 08/29/16 20:35 ; Start 08/29/16 at 21:00 Linagliptin (Tradjenta) 5 mg DAILY PO Last administered on 08/30/16 08:23; Start 08/30/16 at 09:00 Ziprasidone (Geodon) 40 mg BID PO Last administered on 08/30/16 08:23; Start 08/29/16 at 21:00 Metformin HCl (Glucophage) 1,000 mg BIDWMEALS PO Last administered on 08:23; Start 08/29/16 at 17:00; Stop 08/30/16 at 12:13; Status DC Metoclopramide HCl (Reglan) 10 mg 1X ONCE IV ; Start 08/29/16 at 15:45; Stop at 15:45; Status DC Sulfur Hexafluoride Microspheres (Lumason) 25 mg STK-MED ONCE IVP ; Start at 16:48; Stop 08/29/16 at 16:49; Status DC Albuterol/ Ipratropium (Duoneb) 3 ml RTQID NEB Last administered on 08/30/16 13:17; Start 08/29/16 at 20:00 Budesonide (Pulmicort) 0.5 mg RTBID NEB Last administered on 08/30/16 07:56; Start 08/29/16 at 20:00 Sulfur Hexafluoride Microspheres (Lumason) 25 mg STK-MED ONCE IVP ; Start at 18:57; Stop 08/29/16 at 18:58; Status Cancel Sulfur Hexafluoride Microspheres (Lumason) 25 mg STK-MED ONCE IVP ; Start at 15:00; Stop 08/29/16 at 18:59; Status DC Vancomycin HCl (Vanco Per Pharmacy) 1 each PRN DAILY PRN MC SEE COMMENTS Last administered on 08/30/16 13:53; Start 08/29/16 at 19:30 Vancomycin HCl 2 gm/Sodium Chloride 500 ml @ 250 mls/hr Q8H IV Last administered on 08/30/16 12:29; Start 08/29/16 at 20:00 Vancomycin HCl 1 each 1X ONCE MC Last administered on 08/30/16 11:30; Start 08/30/16 at 11:30; Stop 08/30/16 at 11:31; Status DC Potassium Chloride (Klor-Con) 80 meq 1X ONCE PO Last administered on 09:00; Start 08/30/16 at 08:45; Stop 08/30/16 at 08:55; Status DC Furosemide (Lasix) 40 mg 1X ONCE IVP Last administered on 08/30/16 08:59; Start 08/30/16 at 08:45; Stop 08/30/16 at 08:55; Status DC Divalproex Sodium (Depakote Er) 2,000 mg HS PO ; Start 08/30/16 at 21:00 Pantoprazole Sodium (Protonix) 40 mg 1X ONCE PO Last administered on t 12:30; Start 08/30/16 at 10:15; Stop 08/30/16 at 10:17; Status DC Pantoprazole Sodium (Protonix) 40 mg DAILYAC PO ; Start 08/31/16 at 07:30 Iohexol (Omnipaque 300 Mg/ml) 75 ml 1X ONCE IV Last administered on 08/30/16t 11:58; Start 08/30/16 at 12:00; Stop 08/30/16 at 12:01; Status DC Info (Do NOT chart on this entry -- for MONITORING) 1 each PRN DAILY PRN MC SEE COMMENTS; Start 08/30/16 at 11:45; Stop 09/01/16 at 11:44 Metformin HCl (Glucophage) 1,000 mg BIDWMEALS PO ; Start 09/01/16 at 17:00 Levofloxacin/ Dextrose 150 ml @ 100 mls/hr Q24H IV ; Start 08/30/16 at 13:00; Status UNV Potassium Chloride (Klor-Con) 40 meq 1X ONCE PO ; Start 08/30/16 at 14:00; Stop 08/30/16 at 14:01; Status UNV Active Scripts Active Reported Geodon (Ziprasidone Hcl) 40 Mg Capsule 1 Cap PO BID Trazodone Hcl 50 Mg Tablet 1 Tab PO QHS Janumet 50-1,000 Mg Tablet (Sitagliptin Phos/Metformin Hcl) 1 Each Tablet 1 Tab PO BID Propranolol Hcl 10 Mg Tablet 1 Tab PO BID Novolog (Insulin Aspart) 100 Unit/1 Ml Cartridge 20 Unit SQ TIDBFRMEAL Lantus Solostar (Insulin Glargine,Hum.rec.anlog) 100 Unit/1 Ml Insuln.pen 76 Unit SQ QHS Hydrocodone-Apap 5-325 (Hydrocodone Bit/Acetaminophen) 1 Each Tablet 1 Tab PO PRN Q6HRS PRN Doxycycline Hyclate 100 Mg Capsule 1 Cap PO BID Divalproex Sodium Er (Divalproex Sodium) 500 Mg Tab.er.24h 2,000 Mg PO DAILY Bupropion Xl (Bupropion Hcl) 300 Mg Tab.er.24h 1 Tab PO DAILYWBKFT Benazepril Hcl 40 Mg Tablet 1 Tab PO DAILY Atorvastatin Calcium 20 Mg Tablet 1 Tab PO DAILY Vitals/I & O Vital Sign - Last 24 Hours 08/29/16 08/29/16 08/29/16 08/29/16 14:00 15:00 16:00 16:00 Temp 99.9 99.9 Pulse 92 92 93 Resp 31 32 26 B/P (MAP) 171/94 (119) 169/100 (123) 140/87 (104) Pulse Ox 98 94 96 O2 Delivery BiPAP/CPAP BiPAP/CPAP Bi-pap BiPAP/CPAP 08/29/16 08/29/16 08/29/16 08/29/16 16:17 17:00 18:21 19:00 Pulse 87 94 Resp 34 22 B/P (MAP) 141/84 (103) 140/80 (100) Pulse Ox 95 95 93 O2 Delivery BiPAP/CPAP BiPAP/CPAP NonRebreather Mask BiPAP/CPAP 08/29/16 08/29/16 08/29/16 08/29/16 19:27 20:00 20:00 20:33 Temp 100.0 100.0 Pulse 95 96 Resp 22 B/P (MAP) 156/82 (106) 140/85 Pulse Ox 91 96 O2 Delivery BiPAP/CPAP BiPAP/CPAP Bi-pap 08/29/16 08/29/16 08/29/16 08/29/16 21:00 21:15 22:00 23:00 Pulse 93 86 86 Resp 26 28 24 B/P (MAP) 146/81 (102) 112/82 (92) 139/75 (96) Pulse Ox 92 95 95 92 O2 Delivery BiPAP/CPAP BiPAP/CPAP BiPAP/CPAP BiPAP/CPAP 08/29/16 08/30/16 08/30/16 08/30/16 23:47 00:00 00:00 01:00 Temp 100.3 100.3 Pulse 86 84 Resp 24 24 B/P (MAP) 112/65 (81) 110/61 (77) Pulse Ox 93 94 93 O2 Delivery BiPAP/CPAP BiPAP/CPAP Bi-pap BiPAP/CPAP 08/30/16 08/30/16 08/30/16 08/30/16 02:00 02:10 03:00 04:00 Temp 99.3 99.3 Pulse 82 85 84 Resp 20 24 22 B/P (MAP) 112/66 (81) 114/69 (84) 139/78 (98) Pulse Ox 95 95 96 94 O2 Delivery BiPAP/CPAP BiPAP/CPAP BiPAP/CPAP BiPAP/CPAP 08/30/16 08/30/16 08/30/16 08/30/16 04:00 04:04 05:00 05:48 Pulse 94 Resp 21 B/P (MAP) 163/91 (115) Pulse Ox 90 95 94 O2 Delivery Bi-pap BiPAP/CPAP BiPAP/CPAP BiPAP/CPAP 08/30/16 08/30/16 08/30/16 08/30/16 06:00 07:00 07:49 08:00 Pulse 81 80 Resp 21 21 B/P (MAP) 117/69 (85) 118/70 (86) Pulse Ox 94 95 96 O2 Delivery BiPAP/CPAP BiPAP/CPAP BiPAP/CPAP Bi-pap 08/30/16 08/30/16 08/30/16 08/30/16 08:23 08:24 10:50 12:00 Pulse 80 80 B/P (MAP) 128/80 128/80 Pulse Ox 93 O2 Delivery BiPAP/CPAP Bi-pap 08/30/16 13:22 Pulse Ox 93 O2 Delivery NonRebreather Mask O2 Flow Rate 15.0 Intake and Output 08/29/16 08/29/16 08/30/16 15:00 23:00 07:00 Output Total 1230 ml 1800 ml 445 ml Balance -1230 ml -1800 ml -445 ml YECENIA OSWALD MD Aug 30, 2016 14:01
--- NOTE | 2016-08-30 15:22 | CONS ---
DATE OF CONSULTATION: 08/30/2016 REASON FOR CONSULTATION: I was asked to see this 46-year-old gentleman for acute respiratory failure. HISTORY OF PRESENT ILLNESS: He has a history of a [id number] smoking, stopped smoking 10 years ago. He has obstructive sleep apnea-hypopnea syndrome and is on CPAP at home. He was admitted to [facility] on Thursday, was discharged on and he presented to our hospital on Thursday (yesterday). He was admitted at [facility] for cellulitis and sepsis, received antibiotic and IV fluid. In the Emergency Room, he was found to have significant hypoxemia. He did have shortness of breath. He had some cough. He felt congested in his chest. He had nasal congestion, a small amount of sputum, had chest tightness. He was started on BiPAP. He was on BiPAP 16/6 and 100% FiO2. I changed BiPAP to 16/10. Now, he is on 55% FiO2. Off BiPAP, he desats with any movement in spite of being on 100% nonrebreather mask. He is now back on BiPAP. He feels better. He received IV Lasix. He denies fever or chills. PAST MEDICAL HISTORY: Hypertension, diabetes mellitus, depression, obstructive sleep apnea-hypopnea syndrome. ALLERGIES: PENICILLIN. MEDICATIONS: Currently he is on albuterol Atrovent nebulizer, Depakote, vancomycin, Wellbutrin, lisinopril, Levemir, Geodon, doxycycline, Inderal, Desyrel, Lipitor, Lovenox 40 mg subQ daily. SOCIAL HISTORY: History of [id number] smoking, stopped smoking 10 years ago. He does not drink alcohol. He is a customer quality specialist. FAMILY HISTORY: Maternal grandfather had lung cancer. REVIEW OF SYSTEMS: As mentioned above. He has had lower extremity edema. Other systems are otherwise negative. PHYSICAL EXAMINATION: GENERAL: This is an obese gentleman on BiPAP 16/10, FiO2 of 55%. VITAL SIGNS: His respiratory rate is 26, heart rate 80, blood pressure 128/80 and temperature 98. HEENT: Normocephalic, atraumatic. Pupils equal, round, reactive to light. He has a BiPAP, full face mask. NECK: Positive JVD. No lymphadenopathy or thyromegaly. CARDIOVASCULAR: Regular rate and rhythm. PMI is nondisplaced. CHEST: Inspection is normal. LUNGS: There are bibasilar crackles, dullness at the bases. ABDOMEN: Soft and obese. Bowel sounds are good. There is no mass. EXTREMITIES: Positive edema. LYMPHATICS: There is no lymphadenopathy. NEUROLOGIC: Alert and oriented x 3. SKIN: Chronic changes. LABORATORY DATA: I reviewed the following lab data: Chest x-ray shows density in right cardiophrenic angle, increased vascular marking and some mild atelectasis. WBC 11.5, hemoglobin 13.6, platelets 155. Sodium 144, potassium 3.3, chloride 105, CO2 is 31, glucose 158, BUN 10, creatinine 0.9. Troponin less than 0.01. Echocardiogram was done which was a difficult study, ejection fraction 60% to 65%. IMPRESSION: 1. Acute hypoxemic respiratory failure, multifactorial in etiology, including acute diastolic congestive heart failure, atelectasis, rule out thromboembolic disease versus others. 2. Abnormal chest x-ray. 3. Ex-smoker ?chronic obstructive pulmonary disease. 4. Obstructive sleep apnea-hypopnea syndrome. 5. Hypertension. 6. Diabetes mellitus. 7. Obesity. 8. Cellulitis. PLAN AND RECOMMENDATIONS: 1. Titrate FiO2 to keep O2 saturation 91%. 2. Continue BiPAP, monitor respiratory status very closely in the ICU. 3. BiPAP setting was reviewed. 4. I will do a CT angiogram to rule out thromboembolic disease. 5. Continue antibiotic. 6. Bronchodilator. 7. Inhaled corticosteroid. 8. Lovenox for DVT prophylaxis. 9. Add Protonix for stress ulcer prophylaxis. 10. Monitor respiratory status very closely. 11. Elevate head of bed. 12. Keep intake less than output. Lasix. Monitor potassium and creatinine. 13. The findings and recommendations were discussed with the patient, his and RN. I have answered all of the patient's questions. He understood and agreed to proceed with the plan. Thank you very much for allowing me to participate in the care of this very nice gentleman. EFE UMANA M.D. DR: KIRK/ely JOB#: [id number] / [id number]
[2016-08-30] MEDS: AZTREONAM 1 GM in IV NORMAL SALINE 50ML 50 ML IV SCH ×2 (15:37→22:50)
--- NOTE | 2016-08-30 16:40 | RAD ---
Indication leg swelling. Grayscale color Doppler and spectral imaging was performed. Examination was targeted to the veins of the lower extremities. Bilaterally the common femoral, femoral and popliteal vessels demonstrate normal flow compressibility and augmentation. No thrombus is seen. The calf veins, bilaterally, appeared unremarkable. IMPRESSION: Negative bilateral lower extremity venous analysis for DVT
[2016-08-30] MEDS: traZODone 50 MG TABLET. PO SCH (21:07)
[2016-08-30] MEDS: ATORVASTATIN CALCIUM 20 MG TABLET PO SCH (21:07)
[2016-08-30] MEDS: DIVALPROEX EXTENDED RELEASE 500 MG TAB.ER.24H. PO SCH (21:09)
[2016-08-30] MEDS: INSULIN DETEMIR 300 UNITS/3 ML INSULN.PEN. SQ SCH (21:14)
[2016-08-31] VITALS (15 sets, daily range): BP systolic 123–176; BP diastolic 73–97
[2016-08-31 05:06] LABS: BASO # 0.1 x10^3/uL (0.0-0.2); BASO % 1 % (0-3); EOS % 1 % (0-3); HEMATOCRIT 40.3 % (39.0-53.0); HEMOGLOBIN 13.9 g/dL (13.0-17.5); LYMPH # 2.8 x10^3/uL (1.0-4.8); LYMPH % 24 % (24-48); MEAN CORPUSCULAR HEMOGLOBIN 35 pg (25-35); MEAN CORPUSCULAR HGB CONC 35 g/dL (31-37); MEAN CORPUSCULAR VOLUME 101 fL (79-100); MONO % 12 % (0-9); NEUT % 62 % (31-73); PLATELET COUNT 167 x10^3/uL (140-400); RED CELL DISTRIBUTION WIDTH 13.3 % (11.5-14.5); WHITE BLOOD COUNT 11.8 x10^3/uL (4.0-11.0)
[2016-08-31 05:27] LABS: CALCIUM 8.9 mg/dL (8.5-10.1); CREATININE 0.9 mg/dL (0.7-1.3); GFR 91.7; POTASSIUM 3.3 mmol/L (3.5-5.1)
--- NOTE | 2016-08-31 06:47 | PDOC ---
PROGRESS NOTES Chief Complaint Chief Complaint Complaint: Shortness of breath Assessment and plan Acute hypoxic respiratory failure multifactorial. Volume overload, questionable pneumonia, obstructive sleep apnea, morbid obesity Volume overload with possible diastolic dysfunction, due to administration of IV fluids Abdominal wall cellulitis: Resolving Leukocytosis Morbid obesity Hyperglycemia with type 2 diabetes mellitus insulin-dependent Plan Despite diuresis patient is hypoxic at rest, requiring nonrebreather initial CT of the chest ruled out PE however questionable pneumonia. Patient did not have any fevers, blood cultures no growth so far. I did discuss with infectious disease appreciated their recommendations. His abdominal wall cellulitis is resolving Continue BiPAP as needed Continue diuresis Monitor alkaloids Start Levaquin Up to and records from a letter hospitalization History of Present Illness History of Present Illness Shortness of breath is better, this morning he is on nonrebreather nonrebreather , developing hypoxia while he he is eating breakfast. No documented fevers No fever No chest pain Clinically patient is feeling much better Vitals Vitals Vital Signs Date Time Temp Pulse Resp B/P (MAP) Pulse Ox O2 Delivery O2 Flow Rate FiO2 08/31/16 06:00 78 15 133/76 (95) 97 BiPAP/CPAP 08/31/16 04:00 98.5 98.5 08/30/16 21:00 15.0 Physical Exam General: Alert, Oriented X3 Heart: Regular rate, Normal S1, Normal S2 Lungs: Clear Abdomen: Normal bowel sounds, Other (edema +2) Extremities: No clubbing Skin: Other (decreased redness on the abdomen) Labs LABS Laboratory Tests Test 08/30/16 08:00 08/30/16 08:08 08/30/16 11:40 08/30/16 12:27 O2 Saturation 92 % (92-99) Arterial Blood pH 7.44 (7.35-7.45) Arterial Blood pCO2 at Patient Temp 43 mmHg (35-46) Arterial Blood pO2 at Patient Temp 65 mmHg (75-108) Arterial Blood HCO3 28 mmol/L (21-28) Arterial Blood Base Excess 4 mmol/L (-3-3) FiO2 55 Glucose (Fingerstick) 157 mg/dL (70-99) 115 mg/dL (70-99) Vancomycin Level Trough 19.7 mcg/mL (10.0-20.0) Vancomycin Last Dose Date 08/30/16 Vancomycin Last Dose Time 0400 Test 08/30/16 17:31 08/30/16 21:12 08/31/16 04:00 Glucose (Fingerstick) 127 mg/dL (70-99) 143 mg/dL (70-99) White Blood Count 11.8 x10^3/uL (4.0-11.0) Red Blood Count 4.00 x10^6/uL (4.30-5.70) Hemoglobin 13.9 g/dL (13.0-17.5) Hematocrit 40.3 % (39.0-53.0) Mean Corpuscular Volume 101 fL (79-100) Mean Corpuscular Hemoglobin 35 pg (25-35) Mean Corpuscular Hemoglobin Concent 35 g/dL (31-37) Red Cell Distribution Width 13.3 % (11.5-14.5) Platelet Count 167 x10^3/uL (140-400) Neutrophils (%) (Auto) 62 % (31-73) Lymphocytes (%) (Auto) 24 % (24-48) Monocytes (%) (Auto) 12 % (0-9) Eosinophils (%) (Auto) 1 % (0-3) Basophils (%) (Auto) 1 % (0-3) Neutrophils # (Auto) 7.3 x10^3uL (1.8-7.7) Lymphocytes # (Auto) 2.8 x10^3/uL (1.0-4.8) Monocytes # (Auto) 1.4 x10^3/uL (0.0-1.1) Eosinophils # (Auto) 0.2 x10^3/uL (0.0-0.7) Basophils # (Auto) 0.1 x10^3/uL (0.0-0.2) Sodium Level 143 mmol/L (136-145) Potassium Level 3.3 mmol/L (3.5-5.1) Chloride Level 104 mmol/L (98-107) Carbon Dioxide Level 32 mmol/L (21-32) Anion Gap 7 (6-14) Blood Urea Nitrogen 10 mg/dL (8-26) Creatinine 0.9 mg/dL (0.7-1.3) Estimated GFR (Cockcroft-Gault) 91.7 Glucose Level 102 mg/dL (70-99) Calcium Level 8.9 mg/dL (8.5-10.1) Magnesium Level 1.9 mg/dL (1.8-2.4) Assessment and Plan Assessmemt and Plan Problems Medical Problems: (1) Cellulitis Status: Acute (2) Congestive heart failure Status: Acute (3) Hypoxia Status: Acute (4) Respiratory insufficiency Status: Acute Problems: Comment Review of Relevant I have reviewed the following items devin (where applicable) has been applied. Labs Laboratory Tests Test 08/29/16 10:11 08/29/16 10:25 08/29/16 11:59 08/29/16 13:25 O2 Saturation 73 % (92-99) 94 % (92-99) Arterial Blood pH 7.44 (7.35-7.45) 7.45 (7.35-7.45) Arterial Blood pCO2 at Patient Temp 34 mmHg (35-46) 35 mmHg (35-46) Arterial Blood pO2 at Patient Temp < 42 mmHg (75-108) 74 mmHg (75-108) Arterial Blood HCO3 22 mmol/L (21-28) 24 mmol/L (21-28) Arterial Blood Base Excess -1 mmol/L (-3-3) 1 mmol/L (-3-3) FiO2 100 90 White Blood Count 11.8 x10^3/uL (4.0-11.0) Red Blood Count 4.50 x10^6/uL (4.30-5.70) Hemoglobin 15.7 g/dL (13.0-17.5) Hematocrit 44.2 % (39.0-53.0) Mean Corpuscular Volume 98 fL (79-100) Mean Corpuscular Hemoglobin 35 pg (25-35) Mean Corpuscular Hemoglobin Concent 36 g/dL (31-37) Red Cell Distribution Width 13.6 % (11.5-14.5) Platelet Count 198 x10^3/uL (140-400) Neutrophils (%) (Auto) 71 % (31-73) Lymphocytes (%) (Auto) 16 % (24-48) Monocytes (%) (Auto) 11 % (0-9) Eosinophils (%) (Auto) 1 % (0-3) Basophils (%) (Auto) 1 % (0-3) Neutrophils # (Auto) 8.4 x10^3uL (1.8-7.7) Lymphocytes # (Auto) 1.9 x10^3/uL (1.0-4.8) Monocytes # (Auto) 1.3 x10^3/uL (0.0-1.1) Eosinophils # (Auto) 0.1 x10^3/uL (0.0-0.7) Basophils # (Auto) 0.1 x10^3/uL (0.0-0.2) Sodium Level 142 mmol/L (136-145) Potassium Level 3.7 mmol/L (3.5-5.1) Chloride Level 103 mmol/L (98-107) Carbon Dioxide Level 29 mmol/L (21-32) Anion Gap 10 (6-14) Blood Urea Nitrogen 8 mg/dL (8-26) Creatinine 0.9 mg/dL (0.7-1.3) Estimated GFR (Cockcroft-Gault) 91.7 BUN/Creatinine Ratio 9 (6-20) Glucose Level 266 mg/dL (70-99) Lactic Acid Level 2.0 mmol/L (0.4-2.0) 1.2 mmol/L (0.4-2.0) Calcium Level 8.5 mg/dL (8.5-10.1) Magnesium Level 1.7 mg/dL (1.8-2.4) Total Bilirubin 0.6 mg/dL (0.2-1.0) Aspartate Amino Transf (AST/SGOT) 25 U/L (15-37) Alanine Aminotransferase (ALT/SGPT) 37 U/L (16-63) Alkaline Phosphatase 76 U/L (46-116) Creatine Kinase 124 U/L (39-308) Creatine Kinase MB (Mass) 0.6 ng/mL (0.0-3.6) Creatine Kinase MB Relative Index 0.5 % (0-4) Troponin I Quantitative 0.052 ng/mL (0.000-0.055) Total Protein 6.5 g/dL (6.4-8.2) Albumin 3.1 g/dL (3.4-5.0) Albumin/Globulin Ratio 0.9 (1.0-1.7) Test 08/29/16 13:30 08/29/16 17:16 08/29/16 18:35 08/29/16 20:25 Nasal Screen MRSA (PCR) Negative (Negative) Glucose (Fingerstick) 300 mg/dL (70-99) 218 mg/dL (70-99) Troponin I Quantitative 0.022 ng/mL (0.000-0.055) Test 08/30/16 04:30 08/30/16 08:00 08/30/16 08:08 08/30/16 11:40 White Blood Count 11.5 x10^3/uL (4.0-11.0) Red Blood Count 3.91 x10^6/uL (4.30-5.70) Hemoglobin 13.6 g/dL (13.0-17.5) Hematocrit 39.1 % (39.0-53.0) Mean Corpuscular Volume 100 fL (79-100) Mean Corpuscular Hemoglobin 35 pg (25-35) Mean Corpuscular Hemoglobin Concent 35 g/dL (31-37) Red Cell Distribution Width 13.3 % (11.5-14.5) Platelet Count 155 x10^3/uL (140-400) Neutrophils (%) (Auto) 64 % (31-73) Lymphocytes (%) (Auto) 22 % (24-48) Monocytes (%) (Auto) 14 % (0-9) Eosinophils (%) (Auto) 1 % (0-3) Basophils (%) (Auto) 0 % (0-3) Neutrophils # (Auto) 7.3 x10^3uL (1.8-7.7) Lymphocytes # (Auto) 2.5 x10^3/uL (1.0-4.8) Monocytes # (Auto) 1.6 x10^3/uL (0.0-1.1) Eosinophils # (Auto) 0.1 x10^3/uL (0.0-0.7) Basophils # (Auto) 0.0 x10^3/uL (0.0-0.2) Sodium Level 144 mmol/L (136-145) Potassium Level 3.3 mmol/L (3.5-5.1) Chloride Level 105 mmol/L (98-107) Carbon Dioxide Level 31 mmol/L (21-32) Anion Gap 8 (6-14) Blood Urea Nitrogen 10 mg/dL (8-26) Creatinine 0.9 mg/dL (0.7-1.3) Estimated GFR (Cockcroft-Gault) 91.7 Glucose Level 158 mg/dL (70-99) Calcium Level 7.9 mg/dL (8.5-10.1) Troponin I Quantitative < 0.017 ng/mL (0.000-0.055) O2 Saturation 92 % (92-99) Arterial Blood pH 7.44 (7.35-7.45) Arterial Blood pCO2 at Patient Temp 43 mmHg (35-46) Arterial Blood pO2 at Patient Temp 65 mmHg (75-108) Arterial Blood HCO3 28 mmol/L (21-28) Arterial Blood Base Excess 4 mmol/L (-3-3) FiO2 55 Glucose (Fingerstick) 157 mg/dL (70-99) Vancomycin Level Trough 19.7 mcg/mL (10.0-20.0) Vancomycin Last Dose Date 08/30/16 Vancomycin Last Dose Time 0400 Test 08/30/16 12:27 08/30/16 17:31 08/30/16 21:12 08/31/16 04:00 Glucose (Fingerstick) 115 mg/dL (70-99) 127 mg/dL (70-99) 143 mg/dL (70-99) White Blood Count 11.8 x10^3/uL (4.0-11.0) Red Blood Count 4.00 x10^6/uL (4.30-5.70) Hemoglobin 13.9 g/dL (13.0-17.5) Hematocrit 40.3 % (39.0-53.0) Mean Corpuscular Volume 101 fL (79-100) Mean Corpuscular Hemoglobin 35 pg (25-35) Mean Corpuscular Hemoglobin Concent 35 g/dL (31-37) Red Cell Distribution Width 13.3 % (11.5-14.5) Platelet Count 167 x10^3/uL (140-400) Neutrophils (%) (Auto) 62 % (31-73) Lymphocytes (%) (Auto) 24 % (24-48) Monocytes (%) (Auto) 12 % (0-9) Eosinophils (%) (Auto) 1 % (0-3) Basophils (%) (Auto) 1 % (0-3) Neutrophils # (Auto) 7.3 x10^3uL (1.8-7.7) Lymphocytes # (Auto) 2.8 x10^3/uL (1.0-4.8) Monocytes # (Auto) 1.4 x10^3/uL (0.0-1.1) Eosinophils # (Auto) 0.2 x10^3/uL (0.0-0.7) Basophils # (Auto) 0.1 x10^3/uL (0.0-0.2) Sodium Level 143 mmol/L (136-145) Potassium Level 3.3 mmol/L (3.5-5.1) Chloride Level 104 mmol/L (98-107) Carbon Dioxide Level 32 mmol/L (21-32) Anion Gap 7 (6-14) Blood Urea Nitrogen 10 mg/dL (8-26) Creatinine 0.9 mg/dL (0.7-1.3) Estimated GFR (Cockcroft-Gault) 91.7 Glucose Level 102 mg/dL (70-99) Calcium Level 8.9 mg/dL (8.5-10.1) Magnesium Level 1.9 mg/dL (1.8-2.4) Laboratory Tests Test 08/30/16 08:00 08/30/16 08:08 08/30/16 11:40 08/30/16 12:27 O2 Saturation 92 % (92-99) Arterial Blood pH 7.44 (7.35-7.45) Arterial Blood pCO2 at Patient Temp 43 mmHg (35-46) Arterial Blood pO2 at Patient Temp 65 mmHg (75-108) Arterial Blood HCO3 28 mmol/L (21-28) Arterial Blood Base Excess 4 mmol/L (-3-3) FiO2 55 Glucose (Fingerstick) 157 mg/dL (70-99) 115 mg/dL (70-99) Vancomycin Level Trough 19.7 mcg/mL (10.0-20.0) Vancomycin Last Dose Date 08/30/16 Vancomycin Last Dose Time 0400 Test 08/30/16 17:31 08/30/16 21:12 08/31/16 04:00 Glucose (Fingerstick) 127 mg/dL (70-99) 143 mg/dL (70-99) White Blood Count 11.8 x10^3/uL (4.0-11.0) Red Blood Count 4.00 x10^6/uL (4.30-5.70) Hemoglobin 13.9 g/dL (13.0-17.5) Hematocrit 40.3 % (39.0-53.0) Mean Corpuscular Volume 101 fL (79-100) Mean Corpuscular Hemoglobin 35 pg (25-35) Mean Corpuscular Hemoglobin Concent 35 g/dL (31-37) Red Cell Distribution Width 13.3 % (11.5-14.5) Platelet Count 167 x10^3/uL (140-400) Neutrophils (%) (Auto) 62 % (31-73) Lymphocytes (%) (Auto) 24 % (24-48) Monocytes (%) (Auto) 12 % (0-9) Eosinophils (%) (Auto) 1 % (0-3) Basophils (%) (Auto) 1 % (0-3) Neutrophils # (Auto) 7.3 x10^3uL (1.8-7.7) Lymphocytes # (Auto) 2.8 x10^3/uL (1.0-4.8) Monocytes # (Auto) 1.4 x10^3/uL (0.0-1.1) Eosinophils # (Auto) 0.2 x10^3/uL (0.0-0.7) Basophils # (Auto) 0.1 x10^3/uL (0.0-0.2) Sodium Level 143 mmol/L (136-145) Potassium Level 3.3 mmol/L (3.5-5.1) Chloride Level 104 mmol/L (98-107) Carbon Dioxide Level 32 mmol/L (21-32) Anion Gap 7 (6-14) Blood Urea Nitrogen 10 mg/dL (8-26) Creatinine 0.9 mg/dL (0.7-1.3) Estimated GFR (Cockcroft-Gault) 91.7 Glucose Level 102 mg/dL (70-99) Calcium Level 8.9 mg/dL (8.5-10.1) Magnesium Level 1.9 mg/dL (1.8-2.4) Microbiology 08/29/16 Blood Culture - Preliminary, Resulted NO GROWTH AFTER 1 DAY Medications Current Medications Furosemide (Lasix) 80 mg 1X ONCE IVP Last administered on 08/29/16t 10:36; Start 08/29/16 at 10:15; Stop 08/29/16 at 10:31; Status DC Nitroglycerin (Nitrostat) 0.4 mg PRN Q5MIN PRN SL CHEST PAIN; Start 08/29/16 at 10:15 Vancomycin HCl 250 ml @ 250 mls/hr 1X ONCE IV ; Start 08/29/16 at 11:15; Stop 08/29/16 at 12:14; Status UNV Vancomycin HCl 2 gm/Sodium Chloride 500 ml @ 250 mls/hr 1X ONCE IV Last administered on 08/29/16 12:10; Start 08/29/16 at 11:30; Stop 08/29/16 at 13:29 ; Status DC Enoxaparin Sodium (Lovenox 40mg Syringe) 40 mg Q24H SQ ; Start 08/29/16 at 14:30 ; Stop 08/29/16 at 14:40; Status DC Acetaminophen (Tylenol) 325 mg PRN Q6HRS PRN PO MILD PAIN / TEMP; Start at 14:30 Acetaminophen/ Hydrocodone Bitart (Lortab 5/325) 1 tab PRN Q6HRS PRN PO MODERATE TO SEVERE PAIN; Start 08/29/16 at 14:30; Stop 08/29/16 at 15:31; Status DC Hydralazine HCl (Apresoline) 10 mg PRN Q4HRS PRN IVP ELEVATED BP, SEE COMMENTS ; Start 08/29/16 at 14:30 Ondansetron HCl (Zofran) 4 mg PRN Q8HRS PRN IV NAUSEA/VOMITING; Start 08/29/16 at 14:30 Albuterol Sulfate (Ventolin Neb Soln) 2.5 mg PRN Q4HRS PRN NEB SHORTNESS OF BREATH; Start 08/29/16 at 14:30 Enoxaparin Sodium (Lovenox 40mg Syringe) 40 mg Q12HR SQ Last administered on 21:06; Start 08/29/16 at 21:00 Furosemide (Lasix) 40 mg 1X ONCE IVP Last administered on 08/29/16 17:17; Start 08/29/16 at 18:00; Stop 08/29/16 at 18:01; Status DC Insulin Aspart (NovoLOG) 0-9 UNITS TIDWMEALS SQ Last administered on 08/30/16 08:30; Start 08/29/16 at 17:00 Dextrose (Dextrose 50%-Water Syringe) 12.5 gm PRN Q15MIN PRN IV SEE COMMENTS; Start 08/29/16 at 15:15 Atorvastatin Calcium (Lipitor) 20 mg QHS PO Last administered on 08/30/16 21: 07; Start 08/29/16 at 21:00 Divalproex Sodium (Depakote Er) 2,000 mg DAILY PO ; Start 08/30/16 at 09:00; Stop 08/30/16 at 09:11; Status DC Acetaminophen/ Hydrocodone Bitart (Lortab 5/325) 1 tab PRN Q6HRS PRN PO PAIN; Start 08/29/16 at 15:30 Propranolol HCl (Inderal) 10 mg BID PO Last administered on 08/30/16 21:07; Start 08/29/16 at 21:00 Trazodone HCl (Desyrel) 50 mg QHS PO Last administered on 08/30/16 21:07; Start 08/29/16 at 21:00 Lisinopril (Prinivil) 40 mg DAILY PO Last administered on 08/30/16 08:24; Start 08/30/16 at 09:00 Bupropion HCl (Wellbutrin Xl) 300 mg DAILY PO Last administered on 08/30/16 08 :23; Start 08/30/16 at 09:00 Doxycycline Hyclate (Vibra-Tab) 100 mg BID PO Last administered on 08/30/16 21 :07; Start 08/29/16 at 21:00 Insulin Aspart (NovoLOG) 20 units TIDAC SQ Last administered on 08/30/16 18:23 ; Start 08/29/16 at 16:30 Insulin Detemir (Levemir) 76 units QHS SQ Last administered on 08/30/16 21:14 ; Start 08/29/16 at 21:00 Linagliptin (Tradjenta) 5 mg DAILY PO Last administered on 08/30/16 08:23; Start 08/30/16 at 09:00 Ziprasidone (Geodon) 40 mg BID PO Last administered on 08/30/16 21:08; Start 08/29/16 at 21:00 Metformin HCl (Glucophage) 1,000 mg BIDWMEALS PO Last administered on 08:23; Start 08/29/16 at 17:00; Stop 08/30/16 at 12:13; Status DC Metoclopramide HCl (Reglan) 10 mg 1X ONCE IV ; Start 08/29/16 at 15:45; Stop at 15:45; Status DC Sulfur Hexafluoride Microspheres (Lumason) 25 mg STK-MED ONCE IVP ; Start at 16:48; Stop 08/29/16 at 16:49; Status DC Albuterol/ Ipratropium (Duoneb) 3 ml RTQID NEB Last administered on 08/30/16 19:21; Start 08/29/16 at 20:00 Budesonide (Pulmicort) 0.5 mg RTBID NEB Last administered on 08/30/16 19:21; Start 08/29/16 at 20:00 Sulfur Hexafluoride Microspheres (Lumason) 25 mg STK-MED ONCE IVP ; Start at 18:57; Stop 08/29/16 at 18:58; Status Cancel Sulfur Hexafluoride Microspheres (Lumason) 25 mg STK-MED ONCE IVP ; Start at 15:00; Stop 08/29/16 at 18:59; Status DC Vancomycin HCl (Vanco Per Pharmacy) 1 each PRN DAILY PRN MC SEE COMMENTS Last administered on 08/30/16 14:01; Start 08/29/16 at 19:30 Vancomycin HCl 2 gm/Sodium Chloride 500 ml @ 250 mls/hr Q8H IV Last administered on 08/30/16 12:29; Start 08/29/16 at 20:00; Stop 08/30/16 at 19:59 ; Status DC Vancomycin HCl 1 each 1X ONCE MC Last administered on 08/30/16 11:30; Start 08/30/16 at 11:30; Stop 08/30/16 at 11:31; Status DC Potassium Chloride (Klor-Con) 80 meq 1X ONCE PO Last administered on 09:00; Start 08/30/16 at 08:45; Stop 08/30/16 at 08:55; Status DC Furosemide (Lasix) 40 mg 1X ONCE IVP Last administered on 08/30/16 08:59; Start 08/30/16 at 08:45; Stop 08/30/16 at 08:55; Status DC Divalproex Sodium (Depakote Er) 2,000 mg HS PO Last administered on 08/30/16 21:09; Start 08/30/16 at 21:00 Pantoprazole Sodium (Protonix) 40 mg 1X ONCE PO Last administered on 12:30; Start 08/30/16 at 10:15; Stop 08/30/16 at 10:17; Status DC Pantoprazole Sodium (Protonix) 40 mg DAILYAC PO ; Start 08/31/16 at 07:30 Iohexol (Omnipaque 300 Mg/ml) 75 ml 1X ONCE IV Last administered on 08/30/16 11:58; Start 08/30/16 at 12:00; Stop 08/30/16 at 12:01; Status DC Info (Do NOT chart on this entry -- for MONITORING) 1 each PRN DAILY PRN MC SEE COMMENTS; Start 08/30/16 at 11:45; Stop 09/01/16 at 11:44 Metformin HCl (Glucophage) 1,000 mg BIDWMEALS PO ; Start 09/01/16 at 17:00 Levofloxacin/ Dextrose 150 ml @ 100 mls/hr Q24H IV ; Start 08/30/16 at 13:00; Status UNV Potassium Chloride (Klor-Con) 40 meq 1X ONCE PO ; Start 08/30/16 at 14:00; Stop 08/30/16 at 14:01; Status DC Vancomycin HCl 1.75 gm/Sodium Chloride 500 ml @ 250 mls/hr Q8H IV ; Start 08/31 at 08:00 Aztreonam 1 gm/ Sodium Chloride 50 ml @ 100 mls/hr Q8H IV Last administered on 08/30/16 22:50; Start 08/30/16 at 15:00 Active Scripts Active Reported Geodon (Ziprasidone Hcl) 40 Mg Capsule 1 Cap PO BID Trazodone Hcl 50 Mg Tablet 1 Tab PO QHS Janumet 50-1,000 Mg Tablet (Sitagliptin Phos/Metformin Hcl) 1 Each Tablet 1 Tab PO BID Propranolol Hcl 10 Mg Tablet 1 Tab PO BID Novolog (Insulin Aspart) 100 Unit/1 Ml Cartridge 20 Unit SQ TIDBFRMEAL Lantus Solostar (Insulin Glargine,Hum.rec.anlog) 100 Unit/1 Ml Insuln.pen 76 Unit SQ QHS Hydrocodone-Apap 5-325 (Hydrocodone Bit/Acetaminophen) 1 Each Tablet 1 Tab PO PRN Q6HRS PRN Doxycycline Hyclate 100 Mg Capsule 1 Cap PO BID Divalproex Sodium Er (Divalproex Sodium) 500 Mg Tab.er.24h 2,000 Mg PO DAILY Bupropion Xl (Bupropion Hcl) 300 Mg Tab.er.24h 1 Tab PO DAILYWBKFT Benazepril Hcl 40 Mg Tablet 1 Tab PO DAILY Atorvastatin Calcium 20 Mg Tablet 1 Tab PO DAILY Vitals/I & O Vital Sign - Last 24 Hours 08/30/16 08/30/16 08/30/16 08/30/16 07:00 07:49 08:00 08:00 Temp 99.1 99.1 Pulse 80 84 Resp 21 21 B/P (MAP) 118/70 (86) 128/80 (96) Pulse Ox 95 96 97 O2 Delivery BiPAP/CPAP BiPAP/CPAP BiPAP/CPAP Bi-pap 08/30/16 08/30/16 08/30/16 08/30/16 08:23 08:24 09:00 10:00 Pulse 80 80 84 86 Resp 24 23 B/P (MAP) 128/80 128/80 154/91 (112) 139/79 (99) Pulse Ox 96 92 O2 Delivery BiPAP/CPAP BiPAP/CPAP 08/30/16 08/30/16 08/30/16 08/30/16 10:50 11:00 12:00 12:00 Temp 98.7 98.7 Pulse 88 82 Resp 20 20 B/P (MAP) 118/18 (51) 112/78 (89) Pulse Ox 93 94 93 O2 Delivery BiPAP/CPAP BiPAP/CPAP BiPAP/CPAP Bi-pap 08/30/16 08/30/16 08/30/16 08/30/16 13:00 13:22 14:00 15:00 Pulse 93 84 92 Resp 30 29 29 B/P (MAP) 134/82 (99) 155/93 (113) 159/91 (113) Pulse Ox 92 93 94 92 O2 Delivery BiPAP/CPAP NonRebreather Mask BiPAP/CPAP BiPAP/CPAP O2 Flow Rate 15.0 08/30/16 08/30/16 08/30/16 08/30/16 15:57 16:00 16:00 17:00 Temp 98.9 98.9 Pulse 88 82 Resp 27 30 B/P (MAP) 143/90 (107) 135/80 (98) Pulse Ox 93 89 94 O2 Delivery NonRebreather Mask BiPAP/CPAP Bi-pap BiPAP/CPAP O2 Flow Rate 15.0 08/30/16 08/30/16 08/30/16 08/30/16 18:00 19:00 19:21 19:25 Temp 99.3 99.3 Pulse 87 87 Resp B/P (MAP) 138/86 (103) 149/83 (105) Pulse Ox 93 93 90 90 O2 Delivery BiPAP/CPAP Nasal Cannula High Flow Nasal Cannula High Flow Nasal Cannula O2 Flow Rate 12.0 15.0 15.0 08/30/16 08/30/16 08/30/16 08/30/16 20:00 20:00 21:00 21:07 Pulse 87 93 96 Resp B/P (MAP) 149/83 (105) 155/79 (104) 149/88 Pulse Ox 93 92 O2 Delivery Nasal Cannula Nasal Cannula NonRebreather Mask O2 Flow Rate 12.0 12.0 15.0 08/30/16 08/30/16 08/30/16 08/31/16 22:00 22:31 23:00 00:00 Pulse 85 86 86 Resp B/P (MAP) 150/85 (106) 152/72 (98) 135/76 (95) Pulse Ox 94 94 94 93 O2 Delivery BiPAP/CPAP BiPAP/CPAP BiPAP/CPAP BiPAP/CPAP 08/31/16 08/31/16 08/31/16 08/31/16 00:00 00:35 01:00 02:00 Pulse 81 81 Resp B/P (MAP) 139/73 (95) 139/73 (95) Pulse Ox 94 92 92 O2 Delivery Bi-pap BiPAP/CPAP BiPAP/CPAP BiPAP/CPAP 08/31/16 08/31/16 08/31/16 08/31/16 03:00 03:50 04:00 04:00 Temp 98.5 98.5 Pulse 77 83 Resp B/P (MAP) 138/78 (98) 145/84 (104) Pulse Ox 94 93 95 O2 Delivery BiPAP/CPAP BiPAP/CPAP BiPAP/CPAP Bi-pap 08/31/16 08/31/16 08/31/16 05:00 05:26 06:00 Pulse 77 78 Resp 18 15 B/P (MAP) 149/86 (107) 133/76 (95) Pulse Ox 93 93 97 O2 Delivery BiPAP/CPAP BiPAP/CPAP BiPAP/CPAP Intake and Output 08/30/16 08/30/16 08/31/16 15:00 23:00 07:00 Intake Total 1650 ml 300 ml 750 ml Output Total 1540 ml 660 ml 675 ml Balance 110 ml -360 ml 75 ml YECENIA OSWALD MD Aug 31, 2016 06:47
[2016-08-31] MEDS: AZTREONAM 1 GM in IV NORMAL SALINE 50ML 50 ML IV SCH ×3 (07:04→23:30)
[2016-08-31] MEDS: BUDESONIDE 0.5 MG/2 ML NEBU. NEB SCH ×2 (07:29→19:36)
[2016-08-31] MEDS: IPRATRPIUM/ALBUTEROL 0.5/2.5MG 3 ML NEBU. NEB SCH ×4 (07:29→19:36)
[2016-08-31] MEDS: INSULIN ASPART 300 UNITS/3 ML INSULN.PEN SQ SCH ×6 (07:30→17:31)
[2016-08-31 07:59] LABS: HCO3 ABG 29 mmol/L (21-28); PCO2 ABG 42 mmHg (35-46); PH ABG 7.46 (7.35-7.45); PO2 ABG 64 mmHg (75-108); SAT O2 ABG 92 % (92-99)
[2016-08-31 08:02] LABS: FIO2 ABG 50
[2016-08-31] MEDS: PANTOPRAZOLE 40 MG TABLET.DR. PO SCH (08:18)
[2016-08-31] MEDS: DOXYCYCLINE HYCLATE 100 MG TABLET PO SCH (08:18)
[2016-08-31] MEDS: buPROPion XL 150 MG TAB.ER.24H. PO SCH (08:18)
[2016-08-31] MEDS: PROPRANOLOL 10 MG TABLET. PO SCH ×2 (08:19→21:17)
[2016-08-31] MEDS: LISINOPRIL 40 MG TABLET. PO SCH (08:19)
[2016-08-31] MEDS: LINAGLIPTIN 5 MG TABLET PO SCH (08:19)
[2016-08-31] MEDS: ZIPRASIDONE 20 MG CAPSULE PO SCH ×2 (08:19→21:17)
[2016-08-31] MEDS: VANCOMYCIN 1.75 GM in IV NORMAL SALINE 500ML BAG 500 ML IV SCH ×3 (08:20→23:32)
[2016-08-31] MEDS: VANCOMYCIN PER PHARMACY MC PRN ×2 (08:45→08:53)
--- NOTE | 2016-08-31 09:51 | PDOC ---
CARDIOLOGY PROGRESS NOTE SUBJECTIVE: Mild improvement in dyspnea. CT scan performed. OBJECTIVE: Vital SIgns: Vital Signs Date Time Temp Pulse Resp B/P (MAP) Pulse Ox O2 Delivery O2 Flow Rate FiO2 08/31/16 08:19 78 133/76 08/31/16 08:00 Bi-pap 08/31/16 07:30 94 08/31/16 06:00 15 08/31/16 04:00 98.5 98.5 08/30/16 21:00 15.0 I & O Intake and Output 08/31/16 07:00 Intake Total 2700 ml Output Total 2875 ml Balance -175 ml Intake Oral 2150 ml IV Total 550 ml Output Urine Total 2875 ml Objective: Gen: A/O x 3. CVS: RRR PULM: Bilateral decreased breath sounds ABd: soft,NT/ND EXT: No edema. NEURO:No focal deficits. PSYCH: Normal mood/affect. CURRENT MEDICATIONS: Current Medications Medications (Trade) Dose Ordered Sig/Vale Start Time Stop Time Status Last Admin Dose Admin Acetaminophen (Tylenol) 325 mg PRN Q6HRS PRN 08/29/16 14:30 Acetaminophen/ Hydrocodone Bitart (Lortab 5/325) 1 tab PRN Q6HRS PRN 08/29/16 15:30 Albuterol Sulfate (Ventolin Neb Soln) 2.5 mg PRN Q4HRS PRN 08/29/16 14:30 Albuterol/ Ipratropium (Duoneb) 3 ml RTQID 08/29/16 20:00 08/31/16 07:29 3 ML Atorvastatin Calcium (Lipitor) 20 mg QHS 08/29/16 21:00 08/30/16 21:07 20 MG Aztreonam 1 gm/ Sodium Chloride 50 ml @ 100 mls/hr Q8H 08/30/16 15:00 08/31/16 07:04 100 MLS/HR Budesonide (Pulmicort) 0.5 mg RTBID 08/29/16 20:00 08/31/16 07:29 0.5 MG Bupropion HCl (Wellbutrin Xl) 300 mg DAILY 08/30/16 09:00 08/31/16 08:18 300 MG Dextrose (Dextrose 50%-Water Syringe) 12.5 gm PRN Q15MIN PRN 7/21/17 15:15 Divalproex Sodium (Depakote Er) 2,000 mg HS 08/30/16 21:00 08/30/16 21:09 2,000 MG Doxycycline Hyclate (Vibra-Tab) 100 mg BID 08/29/16 21:00 08/31/16 08:18 100 MG Enoxaparin Sodium (Lovenox 40mg Syringe) 40 mg Q12HR 08/29/16 21:00 08/31/16 08:00 DC 08/30/16 21:06 40 MG Enoxaparin Sodium (Lovenox 60mg Syringe) 60 mg Q12HR 08/31/16 09:00 08/31/16 08:18 60 MG Furosemide (Lasix) 40 mg 1X ONCE 08/30/16 08:45 08/30/16 08:55 DC 08/30/16 08:59 40 MG Hydralazine HCl (Apresoline) 10 mg PRN Q4HRS PRN 08/29/16 14:30 Info (Do NOT chart on this entry -- for MONITORING) 1 each PRN DAILY PRN 08/30/16 11:45 09/01/16 11:44 Insulin Aspart (NovoLOG) 20 units TIDAC 08/29/16 16:30 08/30/16 18:23 20 UNITS Insulin Detemir (Levemir) 76 units QHS 08/29/16 21:00 08/30/16 21:14 76 UNITS Iohexol (Omnipaque 300 Mg/ml) 75 ml 1X ONCE 08/30/16 12:00 08/30/16 12:01 DC 08/30/16 11:58 75 ML Levofloxacin/ Dextrose 150 ml @ 100 mls/hr Q24H 08/30/16 13:00 UNV Linagliptin (Tradjenta) 5 mg DAILY 08/30/16 09:00 08/31/16 08:19 5 MG Lisinopril (Prinivil) 40 mg DAILY 08/30/16 09:00 08/31/16 08:19 40 MG Metformin HCl (Glucophage) 1,000 mg BIDWMEALS 09/01/16 17:00 Metoclopramide HCl (Reglan) 10 mg 1X ONCE 08/29/16 15:45 08/29/16 15:45 DC Nitroglycerin (Nitrostat) 0.4 mg PRN Q5MIN PRN 08/29/16 10:15 Ondansetron HCl (Zofran) 4 mg PRN Q8HRS PRN 08/29/16 14:30 Pantoprazole Sodium (Protonix) 40 mg DAILYAC 08/31/16 07:30 08/31/16 08:18 40 MG Potassium Chloride (Klor-Con) 40 meq 1X ONCE 08/30/16 14:00 08/30/16 14:01 DC Propranolol HCl (Inderal) 10 mg BID 08/29/16 21:00 08/31/16 08:19 10 MG Sulfur Hexafluoride Microspheres (Lumason) 25 mg STK-MED ONCE 08/29/16 15:00 08/29/16 18:59 DC Trazodone HCl (Desyrel) 50 mg QHS 08/29/16 21:00 08/30/16 21:07 50 MG Vancomycin HCl (Vanco Per Pharmacy) 1 each PRN DAILY PRN 08/29/16 19:30 08/31/16 08:53 1 EACH Vancomycin HCl 1.75 gm/Sodium Chloride 500 ml @ 250 mls/hr Q8H 08/31/16 08:00 08/31/16 08:20 250 MLS/HR Vancomycin HCl 2 gm/Sodium Chloride 500 ml @ 250 mls/hr Q8H 08/29/16 20:00 08/30/16 19:59 DC 08/30/16 12:29 250 MLS/HR Ziprasidone (Geodon) 40 mg BID 08/29/16 21:00 08/31/16 08:19 40 MG DIAGNOSTIC TESTING: Tele - no acute issues. ASSESSMENT: 1. Acute hypoxic respiratory failure 2. Acute on chronic probable diastolic HF 3. Possible PNA - poa 4. Possible P.E. - poa Problems: PLAN: 1. A diagnosis of HF does not explain the full constellation of symptoms. Despite diuresing nearly 4 liters, he has not had significant improvement and has a high A-a gradient 2. His CT scan demonstrates consolidation, suggestive of underlying PNA and P.E. was not excluded. Defer further eval to pulmonary. At this time, do not believe that a cardiac etiology is his primary issue but will check the followin. BNP 2. Limited echo with bubble study. Will follow along. Thanks. FRANCK VERA MD Aug 31, 2016 09:51
--- NOTE | 2016-08-31 10:40 | PDOC ---
PULMONARY PROGRESS NOTES Subjective tolerated bipap, no on 02, 10 lpm, sob better, no cough, no pain Vitals Vital Signs Date Time Temp Pulse Resp B/P (MAP) Pulse Ox O2 Delivery O2 Flow Rate FiO2 08/31/16 08:19 78 133/76 08/31/16 08:00 Bi-pap 08/31/16 07:30 94 08/31/16 06:00 15 08/31/16 04:00 98.5 98.5 08/30/16 21:00 15.0 Comments ros as mentioned as above other sys otherwise neg ROS: No Nausea General: Alert, Oriented X4 HEENT: Other (nc at perrl, shallow oropharynx, nose clear, neck...no lap, thyromegaly) Lungs: Clear Cardiovascular: S1, S2 Abdomen: Soft, Non-tender, Other (no mass) Neuro Exam: Alert Extremities: Other (edema) Skin: Warm Labs Laboratory Tests Test 08/29/16 11:59 08/29/16 13:25 08/29/16 13:30 08/29/16 17:16 O2 Saturation 94 % (92-99) Arterial Blood pH 7.45 (7.35-7.45) Arterial Blood pCO2 at Patient Temp 35 mmHg (35-46) Arterial Blood pO2 at Patient Temp 74 mmHg (75-108) Arterial Blood HCO3 24 mmol/L (21-28) Arterial Blood Base Excess 1 mmol/L (-3-3) FiO2 90 Lactic Acid Level 1.2 mmol/L (0.4-2.0) Nasal Screen MRSA (PCR) Negative (Negative) Glucose (Fingerstick) 300 mg/dL (70-99) Test 08/29/16 18:35 08/29/16 20:25 08/30/16 04:30 08/30/16 08:00 Troponin I Quantitative 0.022 ng/mL (0.000-0.055) < 0.017 ng/mL (0.000-0.055) Glucose (Fingerstick) 218 mg/dL (70-99) White Blood Count 11.5 x10^3/uL (4.0-11.0) Red Blood Count 3.91 x10^6/uL (4.30-5.70) Hemoglobin 13.6 g/dL (13.0-17.5) Hematocrit 39.1 % (39.0-53.0) Mean Corpuscular Volume 100 fL (79-100) Mean Corpuscular Hemoglobin 35 pg (25-35) Mean Corpuscular Hemoglobin Concent 35 g/dL (31-37) Red Cell Distribution Width 13.3 % (11.5-14.5) Platelet Count 155 x10^3/uL (140-400) Neutrophils (%) (Auto) 64 % (31-73) Lymphocytes (%) (Auto) 22 % (24-48) Monocytes (%) (Auto) 14 % (0-9) Eosinophils (%) (Auto) 1 % (0-3) Basophils (%) (Auto) 0 % (0-3) Neutrophils # (Auto) 7.3 x10^3uL (1.8-7.7) Lymphocytes # (Auto) 2.5 x10^3/uL (1.0-4.8) Monocytes # (Auto) 1.6 x10^3/uL (0.0-1.1) Eosinophils # (Auto) 0.1 x10^3/uL (0.0-0.7) Basophils # (Auto) 0.0 x10^3/uL (0.0-0.2) Sodium Level 144 mmol/L (136-145) Potassium Level 3.3 mmol/L (3.5-5.1) Chloride Level 105 mmol/L (98-107) Carbon Dioxide Level 31 mmol/L (21-32) Anion Gap 8 (6-14) Blood Urea Nitrogen 10 mg/dL (8-26) Creatinine 0.9 mg/dL (0.7-1.3) Estimated GFR (Cockcroft-Gault) 91.7 Glucose Level 158 mg/dL (70-99) Calcium Level 7.9 mg/dL (8.5-10.1) O2 Saturation 92 % (92-99) Arterial Blood pH 7.44 (7.35-7.45) Arterial Blood pCO2 at Patient Temp 43 mmHg (35-46) Arterial Blood pO2 at Patient Temp 65 mmHg (75-108) Arterial Blood HCO3 28 mmol/L (21-28) Arterial Blood Base Excess 4 mmol/L (-3-3) FiO2 55 Test 08/30/16 08:08 08/30/16 11:40 08/30/16 12:27 08/30/16 17:31 Glucose (Fingerstick) 157 mg/dL (70-99) 115 mg/dL (70-99) 127 mg/dL (70-99) Vancomycin Level Trough 19.7 mcg/mL (10.0-20.0) Vancomycin Last Dose Date 08/30/16 Vancomycin Last Dose Time 0400 Test 08/30/16 21:12 08/31/16 04:00 08/31/16 05:00 08/31/16 08:00 Glucose (Fingerstick) 143 mg/dL (70-99) White Blood Count 11.8 x10^3/uL (4.0-11.0) Red Blood Count 4.00 x10^6/uL (4.30-5.70) Hemoglobin 13.9 g/dL (13.0-17.5) Hematocrit 40.3 % (39.0-53.0) Mean Corpuscular Volume 101 fL (79-100) Mean Corpuscular Hemoglobin 35 pg (25-35) Mean Corpuscular Hemoglobin Concent 35 g/dL (31-37) Red Cell Distribution Width 13.3 % (11.5-14.5) Platelet Count 167 x10^3/uL (140-400) Neutrophils (%) (Auto) 62 % (31-73) Lymphocytes (%) (Auto) 24 % (24-48) Monocytes (%) (Auto) 12 % (0-9) Eosinophils (%) (Auto) 1 % (0-3) Basophils (%) (Auto) 1 % (0-3) Neutrophils # (Auto) 7.3 x10^3uL (1.8-7.7) Lymphocytes # (Auto) 2.8 x10^3/uL (1.0-4.8) Monocytes # (Auto) 1.4 x10^3/uL (0.0-1.1) Eosinophils # (Auto) 0.2 x10^3/uL (0.0-0.7) Basophils # (Auto) 0.1 x10^3/uL (0.0-0.2) Sodium Level 143 mmol/L (136-145) Potassium Level 3.3 mmol/L (3.5-5.1) Chloride Level 104 mmol/L (98-107) Carbon Dioxide Level 32 mmol/L (21-32) Anion Gap 7 (6-14) Blood Urea Nitrogen 10 mg/dL (8-26) Creatinine 0.9 mg/dL (0.7-1.3) Estimated GFR (Cockcroft-Gault) 91.7 Glucose Level 102 mg/dL (70-99) Calcium Level 8.9 mg/dL (8.5-10.1) Magnesium Level 1.9 mg/dL (1.8-2.4) QE-Xoy-C-Type Natriuretic Peptide 260 pg/mL (0-124) O2 Saturation 92 % (92-99) Arterial Blood pH 7.46 (7.35-7.45) Arterial Blood pCO2 at Patient Temp 42 mmHg (35-46) Arterial Blood pO2 at Patient Temp 64 mmHg (75-108) Arterial Blood HCO3 29 mmol/L (21-28) Arterial Blood Base Excess 5 mmol/L (-3-3) FiO2 50 Laboratory Tests Test 08/30/16 11:40 08/30/16 12:27 08/30/16 17:31 08/30/16 21:12 Vancomycin Level Trough 19.7 mcg/mL (10.0-20.0) Vancomycin Last Dose Date 08/30/16 Vancomycin Last Dose Time 0400 Glucose (Fingerstick) 115 mg/dL (70-99) 127 mg/dL (70-99) 143 mg/dL (70-99) Test 08/31/16 04:00 08/31/16 05:00 08/31/16 08:00 White Blood Count 11.8 x10^3/uL (4.0-11.0) Red Blood Count 4.00 x10^6/uL (4.30-5.70) Hemoglobin 13.9 g/dL (13.0-17.5) Hematocrit 40.3 % (39.0-53.0) Mean Corpuscular Volume 101 fL (79-100) Mean Corpuscular Hemoglobin 35 pg (25-35) Mean Corpuscular Hemoglobin Concent 35 g/dL (31-37) Red Cell Distribution Width 13.3 % (11.5-14.5) Platelet Count 167 x10^3/uL (140-400) Neutrophils (%) (Auto) 62 % (31-73) Lymphocytes (%) (Auto) 24 % (24-48) Monocytes (%) (Auto) 12 % (0-9) Eosinophils (%) (Auto) 1 % (0-3) Basophils (%) (Auto) 1 % (0-3) Neutrophils # (Auto) 7.3 x10^3uL (1.8-7.7) Lymphocytes # (Auto) 2.8 x10^3/uL (1.0-4.8) Monocytes # (Auto) 1.4 x10^3/uL (0.0-1.1) Eosinophils # (Auto) 0.2 x10^3/uL (0.0-0.7) Basophils # (Auto) 0.1 x10^3/uL (0.0-0.2) Sodium Level 143 mmol/L (136-145) Potassium Level 3.3 mmol/L (3.5-5.1) Chloride Level 104 mmol/L (98-107) Carbon Dioxide Level 32 mmol/L (21-32) Anion Gap 7 (6-14) Blood Urea Nitrogen 10 mg/dL (8-26) Creatinine 0.9 mg/dL (0.7-1.3) Estimated GFR (Cockcroft-Gault) 91.7 Glucose Level 102 mg/dL (70-99) Calcium Level 8.9 mg/dL (8.5-10.1) Magnesium Level 1.9 mg/dL (1.8-2.4) GD-Ntq-U-Type Natriuretic Peptide 260 pg/mL (0-124) O2 Saturation 92 % (92-99) Arterial Blood pH 7.46 (7.35-7.45) Arterial Blood pCO2 at Patient Temp 42 mmHg (35-46) Arterial Blood pO2 at Patient Temp 64 mmHg (75-108) Arterial Blood HCO3 29 mmol/L (21-28) Arterial Blood Base Excess 5 mmol/L (-3-3) FiO2 50 Medications Active Scripts Medications Dose Route/Sig Max Daily Dose Days Date Category Geodon (Ziprasidone Hcl) 40 Mg Capsule 1 Cap PO BID 08/29/16 Reported Trazodone Hcl 50 Mg Tablet 1 Tab PO QHS 08/29/16 Reported Janumet 50-1,000 Mg Tablet (Sitagliptin Phos/Metformin Hcl) 1 Each Tablet 1 Tab PO BID 08/29/16 Reported Propranolol Hcl 10 Mg Tablet 1 Tab PO BID 08/29/16 Reported Novolog (Insulin Aspart) 100 Unit/1 Ml Cartridge 20 Unit SQ TIDBFRMEAL 08/29/16 Reported Lantus Solostar (Insulin Glargine,Hum.rec.anlog) 100 Unit/1 Ml Insuln.pen 76 Unit SQ QHS 08/29/16 Reported Hydrocodone-Apap 5-325 (Hydrocodone Bit/Acetaminophen) 1 Each Tablet 1 Tab PO PRN Q6HRS PRN 08/29/16 Reported Doxycycline Hyclate 100 Mg Capsule 1 Cap PO BID 08/29/16 Reported Divalproex Sodium Er (Divalproex Sodium) 500 Mg Tab.er.24h 2,000 Mg PO DAILY 08/29/16 Reported Bupropion Xl (Bupropion Hcl) 300 Mg Tab.er.24h 1 Tab PO DAILYWBKFT 08/29/16 Reported Benazepril Hcl 40 Mg Tablet 1 Tab PO DAILY 08/29/16 Reported Atorvastatin Calcium 20 Mg Tablet 1 Tab PO DAILY 08/29/16 Reported Comments Extensive infiltrates in the left upper and lower lobes and to a lesser extent in the right upper lobe most compatible with pneumonia. Volume loss in the right middle and lower lobes may reflect atelectasis, scar or pneumonia. The study evaluating for pulmonary embolus is limited. There are no large central pulmonary emboli. Thrombus distally in the right main pulmonary artery and in the lobar branches to the left lower lobe is not excluded Impression . IMPRESSION: 1. Acute hypoxemic respiratory failure, multifactorial in etiology, including acute diastolic congestive heart failure, atelectasis, no thromboembolic disease, ? pneumonia versus others. 2. Abnormal chest x-ray. 3. Ex-smoker ?chronic obstructive pulmonary disease. 4. Obstructive sleep apnea-hypopnea syndrome. 5. Hypertension. 6. Diabetes mellitus. 7. Obesity. 8. Cellulitis. Plan . PLAN AND RECOMMENDATIONS: 1. Titrate FiO2 to keep O2 saturation 91%. 2. Continue BiPAP prn during day, cont at night, 3. BiPAP setting was reviewed. 4. ct angiogram reviewed 5. Continue antibiotic. 6. Bronchodilator. 7. Inhaled corticosteroid. 8. Lovenox for DVT prophylaxis. 9. Protonix for stress ulcer prophylaxis. 10. Monitor respiratory status very closely. 11. Elevate head of bed. 12. Keep intake less than output. Lasix. Monitor potassium and creatinine. discussed w rn, pt, EFE UMANA MD Aug 31, 2016 10:40
[2016-08-31] MEDS ORDERED: levOFLOXacin PER PHARMACY. MC PRN (11:30)
[2016-08-31] MEDS ORDERED: POTASSIUM CHLORIDE 20 MEQ TABLET.ER. PO ONE (11:45)
--- NOTE | 2016-08-31 15:36 | PDOC ---
Infectious Disease Note Vital Sign Vital Signs Vital Signs Date Time Temp Pulse Resp B/P (MAP) Pulse Ox O2 Delivery O2 Flow Rate FiO2 08/31/16 11:41 89 Nasal Cannula 10.0 08/31/16 08:19 78 133/76 08/31/16 06:00 15 08/31/16 04:00 98.5 98.5 Labs Lab Laboratory Tests Test 08/30/16 17:31 08/30/16 21:12 08/31/16 04:00 08/31/16 05:00 Glucose (Fingerstick) 127 mg/dL (70-99) 143 mg/dL (70-99) White Blood Count 11.8 x10^3/uL (4.0-11.0) Red Blood Count 4.00 x10^6/uL (4.30-5.70) Hemoglobin 13.9 g/dL (13.0-17.5) Hematocrit 40.3 % (39.0-53.0) Mean Corpuscular Volume 101 fL (79-100) Mean Corpuscular Hemoglobin 35 pg (25-35) Mean Corpuscular Hemoglobin Concent 35 g/dL (31-37) Red Cell Distribution Width 13.3 % (11.5-14.5) Platelet Count 167 x10^3/uL (140-400) Neutrophils (%) (Auto) 62 % (31-73) Lymphocytes (%) (Auto) 24 % (24-48) Monocytes (%) (Auto) 12 % (0-9) Eosinophils (%) (Auto) 1 % (0-3) Basophils (%) (Auto) 1 % (0-3) Neutrophils # (Auto) 7.3 x10^3uL (1.8-7.7) Lymphocytes # (Auto) 2.8 x10^3/uL (1.0-4.8) Monocytes # (Auto) 1.4 x10^3/uL (0.0-1.1) Eosinophils # (Auto) 0.2 x10^3/uL (0.0-0.7) Basophils # (Auto) 0.1 x10^3/uL (0.0-0.2) Sodium Level 143 mmol/L (136-145) Potassium Level 3.3 mmol/L (3.5-5.1) Chloride Level 104 mmol/L (98-107) Carbon Dioxide Level 32 mmol/L (21-32) Anion Gap 7 (6-14) Blood Urea Nitrogen 10 mg/dL (8-26) Creatinine 0.9 mg/dL (0.7-1.3) Estimated GFR (Cockcroft-Gault) 91.7 Glucose Level 102 mg/dL (70-99) Calcium Level 8.9 mg/dL (8.5-10.1) Magnesium Level 1.9 mg/dL (1.8-2.4) ZV-Npc-T-Type Natriuretic Peptide 260 pg/mL (0-124) Test 08/31/16 08:00 08/31/16 08:21 08/31/16 12:39 O2 Saturation 92 % (92-99) Arterial Blood pH 7.46 (7.35-7.45) Arterial Blood pCO2 at Patient Temp 42 mmHg (35-46) Arterial Blood pO2 at Patient Temp 64 mmHg (75-108) Arterial Blood HCO3 29 mmol/L (21-28) Arterial Blood Base Excess 5 mmol/L (-3-3) FiO2 50 Glucose (Fingerstick) 108 mg/dL (70-99) 163 mg/dL (70-99) Micro BLOOD CULTURE Preliminary NO GROWTH AFTER 2 DAYS Objective Assessment HCAP Cellulitis of abdominal wall, resolving PCN allergy, swelling of the throat with amoxicillin. No recall of tolerating cephalosporins. Acute HF h/o MRSA SSTI Morbid obesity Plan Plan of Care Patient clinically improving; continue the vancomycin and Aztreonam for now. Culture are negative so far. Monitor WBC, renal function and temp Supportive care D/w Thank you [id number] Patient seen and examined. Chart reviewed in detail. Case discussed with COMMERCIAL ENGINEER. Agree with above in addition to the following Add Levaquin for double coverage of HCAP STEFFANY LUCIO APRN Aug 31, 2016 15:35 LESLY COLE MD Aug 31, 2016 16:50
[2016-08-31] MEDS: ACETAMINOPHEN 325 MG TABLET. PO PRN (17:29)
[2016-08-31] MEDS: HYDROcodone/APAP 5/325MG 1 TAB TABLET PO PRN (19:13)
[2016-08-31] MEDS: traZODone 50 MG TABLET. PO SCH (21:16)
[2016-08-31] MEDS: DIVALPROEX EXTENDED RELEASE 500 MG TAB.ER.24H. PO SCH (21:16)
[2016-08-31] MEDS: ATORVASTATIN CALCIUM 20 MG TABLET PO SCH (21:17)
[2016-08-31] MEDS: INSULIN DETEMIR 300 UNITS/3 ML INSULN.PEN. SQ SCH (21:31)
--- NOTE | 2016-09-01 02:15 | CONS ---
DATE OF CONSULTATION: 08/31/2016 REFERRING PHYSICIAN: Dr. Rogel. REASON FOR CONSULTATION: Hypoxia, possible pneumonia. HISTORY OF PRESENT ILLNESS: This patient is a 46-year-old morbidly obese male with a BMI 48.5 and a past medical history of obstructive sleep apnea and hypoventilation syndrome, on CPAP, who presented with worsening shortness of air, chest discomfort over a 2-day period associated with a fever and hypoxia as well as a slight increase in white count of 11,800. Chest x-ray showed increased interstitial markings, left greater than right, as well as a hazy opacity in the left ____ region. After he was placed on BiPAP and diuresed, symptoms improved. A followup CTA revealed extensive infiltrates compatible with pneumonia. No evidence of pulmonary emboli was noted though the study was limited. The patient is currently on vancomycin as well as aztreonam due to ALLERGY TO PENICILLIN. ID has been asked to consult for further evaluation and antibiotic management. The patient recently was discharged from [facility] a couple days ago after treatment for sepsis with lactic acidosis and abdominal wall cellulitis. He received IV antibiotics prior to being discharged on oral doxycycline. He has a history of prior MRSA skin and soft tissue infections. He has a mild headache. Denies nasal/sinus congestion or sore throat. He has occasional cough. He feels the redness of abdomen has much improved. Denies dysuria or frequency. Denies rash. PAST MEDICAL HISTORY: MRSA skin and soft tissue infections, morbid obesity, obstructive sleep apnea, hypoventilation syndrome, peripheral neuropathy, hypertension, diabetes mellitus, bipolar disorder, depression, and hyperlipidemia. FAMILY HISTORY: Positive for chronic obstructive pulmonary disease. PAST SURGICAL HISTORY: [place] teeth extraction and abdominoplasty. SOCIAL HISTORY: The patient is . 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 Former smoker. He served in the [employer]. He has traveled to multiple countries including [place], [place] and [place]. ALLERGIES: PENICILLIN in childhood. AMOXICILLIN CAUSED THROAT SWELLING. He does not recall having tolerated cephalosporins specifically Keflex/cephalexin. MEDICATIONS: Reviewed on the APR, includes vancomycin and aztreonam. REVIEW OF SYSTEMS: Per HPI, otherwise all other review of systems are negative. PHYSICAL EXAMINATION: GENERAL: A pleasant male, propped up in bed, in no apparent distress. VITAL SIGNS: Temperature is 98.5, blood pressure 133/76, heart rate 78, respiratory rate 15, pulse oximetry is 89% on 10 liters nasal cannula. HEENT: Pupils equally round. He wears eyeglasses. Oral mucosa is pink and dry. NECK: Supple. LUNGS: Diminished aeration. HEART: Normal S1, S2. ABDOMEN: Obese, bowel sounds are present, soft and nontender. No redness noted. There is some induration around the umbilicus. Nontender. EXTREMITIES: Bilateral lower extremity edema. No cyanosis. SKIN: Without rash. Warm to touch. NEUROLOGIC: Alert and oriented x 3. Moves all extremities. LABORATORY DATA: Today's WBC 11.8, hemoglobin 13.9, platelet count 167,000. Sodium 143, potassium 3.3, creatinine 0.9, BUN 10, glucose 102. Lactic acid 1.2. Total bilirubin 0.6, AST 25, ALT 37. Creatinine kinase 124. Troponin 0.052. BNP 260. Albumin 3.1. Vancomycin trough 19.7. MRSA screen negative. Blood cultures negative to date. Chest and CTA per HPI. Venous ultrasound of the lower extremities showed no evidence of DVT. IMPRESSION: 1. Healthcare-acquired pneumonia. 2. Cellulitis of abdominal wall, resolving. 3. PENICILLIN ALLERGY, SWELLING OF THE THROAT WITH AMOXICILLIN. 4. Acute heart failure. 5. History of methicillin-resistant Staphylococcus aureus. 6. Morbid obesity. PLAN: The patient is clinically improving. Continue vancomycin and aztreonam for now and add Levaquin. Cultures are negative so far. Monitor WBC count, renal function and temperature. Supportive care. Discussed with . Thank you, Dr. Rogel, for asking us to participate in this patient's care. Should you have further questions or concerns, please call. LESLY COLE MD DR: JUANITA/ely JOB#: [id number] / [id number] ANGÉLICA
[2016-09-01 04:00] VITALS: BP 176/97
[2016-09-01 06:32] LABS: BASO # 0.1 x10^3/uL (0.0-0.2); BASO % 1 % (0-3); EOS % 3 % (0-3); HEMATOCRIT 38.2 % (39.0-53.0); HEMOGLOBIN 13.6 g/dL (13.0-17.5); LYMPH # 3.2 x10^3/uL (1.0-4.8); LYMPH % 28 % (24-48); MEAN CORPUSCULAR HEMOGLOBIN 35 pg (25-35); MEAN CORPUSCULAR HGB CONC 36 g/dL (31-37); MEAN CORPUSCULAR VOLUME 99 fL (79-100); MONO % 13 % (0-9); NEUT % 57 % (31-73); PLATELET COUNT 189 x10^3/uL (140-400); RED BLOOD COUNT 3.87 x10^6/uL (4.30-5.70); RED CELL DISTRIBUTION WIDTH 13.3 % (11.5-14.5); WHITE BLOOD COUNT 11.4 x10^3/uL (4.0-11.0)
[2016-09-01 06:54] LABS: CALCIUM 8.2 mg/dL (8.5-10.1); CREATININE 0.9 mg/dL (0.7-1.3); GFR 91.7; POTASSIUM 3.5 mmol/L (3.5-5.1)
[2016-09-01] MEDS: AZTREONAM 1 GM in IV NORMAL SALINE 50ML 50 ML IV SCH ×3 (07:00→23:24)
[2016-09-01] MEDS: INSULIN ASPART 300 UNITS/3 ML INSULN.PEN SQ SCH ×6 (07:30→17:26)
[2016-09-01 08:00] VITALS: BP 183/98
--- NOTE | 2016-09-01 08:00 | CARD ---
APPROVED REPORT EXAM: Limited echo with bubble study Other Information Quality : Fair Echo Enhancing Agent Agent/Amount Used: Agitated Saline 24mL ATRIA Injection of bubbles is not conclusive due to poor image quality. <Conclusion> Limited echo reveals grossly normal LV function. Agitated saline contrast study to evaluate for PFO is inconclusive.
[2016-09-01] MEDS: PANTOPRAZOLE 40 MG TABLET.DR. PO SCH (08:14)
[2016-09-01] MEDS: ZIPRASIDONE 20 MG CAPSULE PO SCH ×2 (08:14→21:24)
[2016-09-01] MEDS: buPROPion XL 150 MG TAB.ER.24H. PO SCH (08:14)
[2016-09-01] MEDS: HYDROcodone/APAP 5/325MG 1 TAB TABLET PO PRN ×2 (08:14→21:24)
[2016-09-01] MEDS: LINAGLIPTIN 5 MG TABLET PO SCH (08:14)
[2016-09-01] MEDS: PROPRANOLOL 10 MG TABLET. PO SCH ×2 (08:14→21:23)
[2016-09-01] MEDS: LISINOPRIL 40 MG TABLET. PO SCH (08:15)
[2016-09-01] MEDS: VANCOMYCIN 1.75 GM in IV NORMAL SALINE 500ML BAG 500 ML IV SCH (08:17)
[2016-09-01] MEDS: VANCOMYCIN PER PHARMACY MC PRN (09:15)
--- NOTE | 2016-09-01 09:29 | PDOC ---
Infectious Disease Note Subjective Subjective Comfortable, High flow O2. Denies SOA, CP or cough Fever Tmax 100.0 ROS ROS GEN: Denies chills, sweats HEENT: Denies sore throat GI: Denies n/v/d NEURO: Denies confusion, dizziness Vital Sign Vital Signs Vital Signs Date Time Temp Pulse Resp B/P (MAP) Pulse Ox O2 Delivery O2 Flow Rate FiO2 09/01/16 08:15 86 176/97 09/01/16 05:23 95 BiPAP/CPAP 09/01/16 04:00 98.5 25 98.5 08/31/16 19:39 10.0 Physical Exam PHYSICAL EXAM GENERAL: Up in the chair, relaxed appearance HEENT: Oral mucosa dry NECK: Supple. LUNGS: Diminished aeration. HEART: Normal S1, S2. ABDOMEN: Obese, bowel sounds are present, soft and nontender. No redness noted. There is some induration around the umbilicus. Nontender. EXTREMITIES: Less bilateral lower extremity edema. No cyanosis. SKIN: Without rash. Warm to touch. NEUROLOGIC: Alert and oriented x 3. Moves all extremities. Peripheral IV Labs Lab Laboratory Tests Test 08/31/16 12:39 08/31/16 17:27 08/31/16 21:26 09/01/16 05:30 Glucose (Fingerstick) 163 mg/dL (70-99) 130 mg/dL (70-99) 113 mg/dL (70-99) White Blood Count 11.4 x10^3/uL (4.0-11.0) Red Blood Count 3.87 x10^6/uL (4.30-5.70) Hemoglobin 13.6 g/dL (13.0-17.5) Hematocrit 38.2 % (39.0-53.0) Mean Corpuscular Volume 99 fL (79-100) Mean Corpuscular Hemoglobin 35 pg (25-35) Mean Corpuscular Hemoglobin Concent 36 g/dL (31-37) Red Cell Distribution Width 13.3 % (11.5-14.5) Platelet Count 189 x10^3/uL (140-400) Neutrophils (%) (Auto) 57 % (31-73) Lymphocytes (%) (Auto) 28 % (24-48) Monocytes (%) (Auto) 13 % (0-9) Eosinophils (%) (Auto) 3 % (0-3) Basophils (%) (Auto) 1 % (0-3) Neutrophils # (Auto) 6.5 x10^3uL (1.8-7.7) Lymphocytes # (Auto) 3.2 x10^3/uL (1.0-4.8) Monocytes # (Auto) 1.4 x10^3/uL (0.0-1.1) Eosinophils # (Auto) 0.3 x10^3/uL (0.0-0.7) Basophils # (Auto) 0.1 x10^3/uL (0.0-0.2) Sodium Level 144 mmol/L (136-145) Potassium Level 3.5 mmol/L (3.5-5.1) Chloride Level 106 mmol/L (98-107) Carbon Dioxide Level 29 mmol/L (21-32) Anion Gap 9 (6-14) Blood Urea Nitrogen 13 mg/dL (8-26) Creatinine 0.9 mg/dL (0.7-1.3) Estimated GFR (Cockcroft-Gault) 91.7 Glucose Level 91 mg/dL (70-99) Calcium Level 8.2 mg/dL (8.5-10.1) Micro BLOOD CULTURE Preliminary NO GROWTH AFTER 2 DAYS Objective Assessment HCAP Cellulitis of abdominal wall, resolving PCN allergy, swelling of the throat with amoxicillin. No recall of tolerating cephalosporins. Acute HF h/o MRSA SSTI Morbid obesity Plan Plan of Care continue the vancomycin, Aztreonam and Levaquin Culture are negative so far. Monitor WBC, renal function and temp Supportive care Attending Co-Sign The patient was seen and interviewed as well as examined at the bedside. The chart was reviewed. The case was discussed. Agree with the plan of care. left hand x ray.. d/w STEFFANY Gutierrez APRN Sep 01, 2016 09:29 MAYO CASTRO MD Sep 01, 2016 14:28
[2016-09-01] MEDS: IPRATRPIUM/ALBUTEROL 0.5/2.5MG 3 ML NEBU. NEB SCH ×4 (09:34→18:50)
[2016-09-01] MEDS: BUDESONIDE 0.5 MG/2 ML NEBU. NEB SCH ×2 (09:35→18:51)
[2016-09-01 12:00] VITALS: BP 173/92
--- NOTE | 2016-09-01 12:48 | PDOC ---
PROGRESS NOTES Chief Complaint Chief Complaint Complaint: Shortness of breath Assessment and plan Acute hypoxic respiratory failure multifactorial. HAP, obesity hypoventilation left side Abdominal wall cellulitis: Resolving Leukocytosis Morbid obesity Hyperglycemia with type 2 diabetes mellitus insulin-dependent Plan Despite diuresis patient is hypoxic at rest, requiring nonrebreather initial CT of the chest ruled out PE however questionable pneumonia. Patient did not have any fevers, blood cultures no growth so far. His abdominal wall cellulitis is resolving Continue BiPAP as needed Continue diuresis Monitor alkaloids fu with ID, on levaquin, azetreonam and vanco still need nonbreather high O2, hope can taper soon on levemir 76u qhs, aspart 20u tid, SSI ICU care History of Present Illness History of Present Illness Shortness of breath is better,but this morning he still is on nonrebreather , developing hypoxia while he he is eating breakfast. No documented fevers No fever No chest pain CTA showed HAC, neg PE, DVT neg on US Echo EF 60% Vitals Vitals Vital Signs Date Time Temp Pulse Resp B/P (MAP) Pulse Ox O2 Delivery O2 Flow Rate FiO2 09/01/16 09:35 92 High Flow Nasal Cannula 10.0 09/01/16 08:15 86 176/97 09/01/16 04:00 98.5 25 98.5 Physical Exam General: Alert, Oriented X3 Heart: Regular rate, Normal S1, Normal S2 Lungs: Other (bl decreased bs) Abdomen: Normal bowel sounds, Other (edema +2) Extremities: No clubbing Skin: Other (decreased redness on the abdomen) Labs LABS Laboratory Tests Test 08/31/16 17:27 08/31/16 21:26 09/01/16 05:30 09/01/16 12:14 Glucose (Fingerstick) 130 mg/dL (70-99) 113 mg/dL (70-99) 145 mg/dL (70-99) White Blood Count 11.4 x10^3/uL (4.0-11.0) Red Blood Count 3.87 x10^6/uL (4.30-5.70) Hemoglobin 13.6 g/dL (13.0-17.5) Hematocrit 38.2 % (39.0-53.0) Mean Corpuscular Volume 99 fL (79-100) Mean Corpuscular Hemoglobin 35 pg (25-35) Mean Corpuscular Hemoglobin Concent 36 g/dL (31-37) Red Cell Distribution Width 13.3 % (11.5-14.5) Platelet Count 189 x10^3/uL (140-400) Neutrophils (%) (Auto) 57 % (31-73) Lymphocytes (%) (Auto) 28 % (24-48) Monocytes (%) (Auto) 13 % (0-9) Eosinophils (%) (Auto) 3 % (0-3) Basophils (%) (Auto) 1 % (0-3) Neutrophils # (Auto) 6.5 x10^3uL (1.8-7.7) Lymphocytes # (Auto) 3.2 x10^3/uL (1.0-4.8) Monocytes # (Auto) 1.4 x10^3/uL (0.0-1.1) Eosinophils # (Auto) 0.3 x10^3/uL (0.0-0.7) Basophils # (Auto) 0.1 x10^3/uL (0.0-0.2) Sodium Level 144 mmol/L (136-145) Potassium Level 3.5 mmol/L (3.5-5.1) Chloride Level 106 mmol/L (98-107) Carbon Dioxide Level 29 mmol/L (21-32) Anion Gap 9 (6-14) Blood Urea Nitrogen 13 mg/dL (8-26) Creatinine 0.9 mg/dL (0.7-1.3) Estimated GFR (Cockcroft-Gault) 91.7 Glucose Level 91 mg/dL (70-99) Calcium Level 8.2 mg/dL (8.5-10.1) Review of Systems Review of Systems no fever, chills, chest pain Assessment and Plan Assessmemt and Plan Problems Medical Problems: (1) Cellulitis Status: Acute (2) Congestive heart failure Status: Acute (3) Hypoxia Status: Acute (4) Respiratory insufficiency Status: Acute Problems: Comment Review of Relevant I have reviewed the following items devin (where applicable) has been applied. Labs Laboratory Tests Test 08/30/16 17:31 08/30/16 21:12 08/31/16 04:00 08/31/16 05:00 Glucose (Fingerstick) 127 mg/dL (70-99) 143 mg/dL (70-99) White Blood Count 11.8 x10^3/uL (4.0-11.0) Red Blood Count 4.00 x10^6/uL (4.30-5.70) Hemoglobin 13.9 g/dL (13.0-17.5) Hematocrit 40.3 % (39.0-53.0) Mean Corpuscular Volume 101 fL (79-100) Mean Corpuscular Hemoglobin 35 pg (25-35) Mean Corpuscular Hemoglobin Concent 35 g/dL (31-37) Red Cell Distribution Width 13.3 % (11.5-14.5) Platelet Count 167 x10^3/uL (140-400) Neutrophils (%) (Auto) 62 % (31-73) Lymphocytes (%) (Auto) 24 % (24-48) Monocytes (%) (Auto) 12 % (0-9) Eosinophils (%) (Auto) 1 % (0-3) Basophils (%) (Auto) 1 % (0-3) Neutrophils # (Auto) 7.3 x10^3uL (1.8-7.7) Lymphocytes # (Auto) 2.8 x10^3/uL (1.0-4.8) Monocytes # (Auto) 1.4 x10^3/uL (0.0-1.1) Eosinophils # (Auto) 0.2 x10^3/uL (0.0-0.7) Basophils # (Auto) 0.1 x10^3/uL (0.0-0.2) Sodium Level 143 mmol/L (136-145) Potassium Level 3.3 mmol/L (3.5-5.1) Chloride Level 104 mmol/L (98-107) Carbon Dioxide Level 32 mmol/L (21-32) Anion Gap 7 (6-14) Blood Urea Nitrogen 10 mg/dL (8-26) Creatinine 0.9 mg/dL (0.7-1.3) Estimated GFR (Cockcroft-Gault) 91.7 Glucose Level 102 mg/dL (70-99) Calcium Level 8.9 mg/dL (8.5-10.1) Magnesium Level 1.9 mg/dL (1.8-2.4) [id number] Natriuretic Peptide 260 pg/mL (0-124) Test 08/31/16 08:00 7/23/17 08:21 08/31/16 12:39 08/31/16 17:27 O2 Saturation 92 % (92-99) Arterial Blood pH 7.46 (7.35-7.45) Arterial Blood pCO2 at Patient Temp 42 mmHg (35-46) Arterial Blood pO2 at Patient Temp 64 mmHg (75-108) Arterial Blood HCO3 29 mmol/L (21-28) Arterial Blood Base Excess 5 mmol/L (-3-3) FiO2 50 Glucose (Fingerstick) 108 mg/dL (70-99) 163 mg/dL (70-99) 130 mg/dL (70-99) Test 08/31/16 21:26 09/01/16 05:30 09/01/16 12:14 Glucose (Fingerstick) 113 mg/dL (70-99) 145 mg/dL (70-99) White Blood Count 11.4 x10^3/uL (4.0-11.0) Red Blood Count 3.87 x10^6/uL (4.30-5.70) Hemoglobin 13.6 g/dL (13.0-17.5) Hematocrit 38.2 % (39.0-53.0) Mean Corpuscular Volume 99 fL (79-100) Mean Corpuscular Hemoglobin 35 pg (25-35) Mean Corpuscular Hemoglobin Concent 36 g/dL (31-37) Red Cell Distribution Width 13.3 % (11.5-14.5) Platelet Count 189 x10^3/uL (140-400) Neutrophils (%) (Auto) 57 % (31-73) Lymphocytes (%) (Auto) 28 % (24-48) Monocytes (%) (Auto) 13 % (0-9) Eosinophils (%) (Auto) 3 % (0-3) Basophils (%) (Auto) 1 % (0-3) Neutrophils # (Auto) 6.5 x10^3uL (1.8-7.7) Lymphocytes # (Auto) 3.2 x10^3/uL (1.0-4.8) Monocytes # (Auto) 1.4 x10^3/uL (0.0-1.1) Eosinophils # (Auto) 0.3 x10^3/uL (0.0-0.7) Basophils # (Auto) 0.1 x10^3/uL (0.0-0.2) Sodium Level 144 mmol/L (136-145) Potassium Level 3.5 mmol/L (3.5-5.1) Chloride Level 106 mmol/L (98-107) Carbon Dioxide Level 29 mmol/L (21-32) Anion Gap 9 (6-14) Blood Urea Nitrogen 13 mg/dL (8-26) Creatinine 0.9 mg/dL (0.7-1.3) Estimated GFR (Cockcroft-Gault) 91.7 Glucose Level 91 mg/dL (70-99) Calcium Level 8.2 mg/dL (8.5-10.1) Laboratory Tests Test 08/31/16 17:27 08/31/16 21:26 09/01/16 05:30 09/01/16 12:14 Glucose (Fingerstick) 130 mg/dL (70-99) 113 mg/dL (70-99) 145 mg/dL (70-99) White Blood Count 11.4 x10^3/uL (4.0-11.0) Red Blood Count 3.87 x10^6/uL (4.30-5.70) Hemoglobin 13.6 g/dL (13.0-17.5) Hematocrit 38.2 % (39.0-53.0) Mean Corpuscular Volume 99 fL (79-100) Mean Corpuscular Hemoglobin 35 pg (25-35) Mean Corpuscular Hemoglobin Concent 36 g/dL (31-37) Red Cell Distribution Width 13.3 % (11.5-14.5) Platelet Count 189 x10^3/uL (140-400) Neutrophils (%) (Auto) 57 % (31-73) Lymphocytes (%) (Auto) 28 % (24-48) Monocytes (%) (Auto) 13 % (0-9) Eosinophils (%) (Auto) 3 % (0-3) Basophils (%) (Auto) 1 % (0-3) Neutrophils # (Auto) 6.5 x10^3uL (1.8-7.7) Lymphocytes # (Auto) 3.2 x10^3/uL (1.0-4.8) Monocytes # (Auto) 1.4 x10^3/uL (0.0-1.1) Eosinophils # (Auto) 0.3 x10^3/uL (0.0-0.7) Basophils # (Auto) 0.1 x10^3/uL (0.0-0.2) Sodium Level 144 mmol/L (136-145) Potassium Level 3.5 mmol/L (3.5-5.1) Chloride Level 106 mmol/L (98-107) Carbon Dioxide Level 29 mmol/L (21-32) Anion Gap 9 (6-14) Blood Urea Nitrogen 13 mg/dL (8-26) Creatinine 0.9 mg/dL (0.7-1.3) Estimated GFR (Cockcroft-Gault) 91.7 Glucose Level 91 mg/dL (70-99) Calcium Level 8.2 mg/dL (8.5-10.1) Microbiology 08/29/16 Blood Culture - Preliminary, Resulted NO GROWTH AFTER 2 DAYS Medications Current Medications Furosemide (Lasix) 80 mg 1X ONCE IVP Last administered on 08/29/16 10:36; Start 08/29/16 at 10:15; Stop 08/29/16 at 10:31; Status DC Nitroglycerin (Nitrostat) 0.4 mg PRN Q5MIN PRN SL CHEST PAIN; Start 08/29/16 at 10:15 Vancomycin HCl 250 ml @ 250 mls/hr 1X ONCE IV ; Start 08/29/16 at 11:15; Stop 08/29/16 at 12:14; Status UNV Vancomycin HCl 2 gm/Sodium Chloride 500 ml @ 250 mls/hr 1X ONCE IV Last administered on 08/29/16 12:10; Start 08/29/16 at 11:30; Stop 08/29/16 at 13:29 ; Status DC Enoxaparin Sodium (Lovenox 40mg Syringe) 40 mg Q24H SQ ; Start 08/29/16 at 14:30 ; Stop 08/29/16 at 14:40; Status DC Acetaminophen (Tylenol) 325 mg PRN Q6HRS PRN PO MILD PAIN / TEMP Last administered on 08/31/16 17:29; Start 08/29/16 at 14:30 Acetaminophen/ Hydrocodone Bitart (Lortab 5/325) 1 tab PRN Q6HRS PRN PO MODERATE TO SEVERE PAIN; Start 08/29/16 at 14:30; Stop 08/29/16 at 15:31; Status DC Hydralazine HCl (Apresoline) 10 mg PRN Q4HRS PRN IVP ELEVATED BP, SEE COMMENTS ; Start 08/29/16 at 14:30 Ondansetron HCl (Zofran) 4 mg PRN Q8HRS PRN IV NAUSEA/VOMITING; Start 08/29/16 at 14:30 Albuterol Sulfate (Ventolin Neb Soln) 2.5 mg PRN Q4HRS PRN NEB SHORTNESS OF BREATH; Start 08/29/16 at 14:30 Enoxaparin Sodium (Lovenox 40mg Syringe) 40 mg Q12HR SQ Last administered on 21:06; Start 08/29/16 at 21:00; Stop 08/31/16 at 08:00; Status DC Furosemide (Lasix) 40 mg 1X ONCE IVP Last administered on 08/29/16 17:17; Start 08/29/16 at 18:00; Stop 08/29/16 at 18:01; Status DC Insulin Aspart (NovoLOG) 0-9 UNITS TIDWMEALS SQ Last administered on 08/31/16 12:41; Start 08/29/16 at 17:00 Dextrose (Dextrose 50%-Water Syringe) 12.5 gm PRN Q15MIN PRN IV SEE COMMENTS; Start 08/29/16 at 15:15 Atorvastatin Calcium (Lipitor) 20 mg QHS PO Last administered on 08/31/16 21: 17; Start 08/29/16 at 21:00 Divalproex Sodium (Depakote Er) 2,000 mg DAILY PO ; Start 08/30/16 at 09:00; Stop 08/30/16 at 09:11; Status DC Acetaminophen/ Hydrocodone Bitart (Lortab 5/325) 1 tab PRN Q6HRS PRN PO PAIN Last administered on 09/01/16 08:14; Start 08/29/16 at 15:30 Propranolol HCl (Inderal) 10 mg BID PO Last administered on 09/01/16 08:14; Start 08/29/16 at 21:00 Trazodone HCl (Desyrel) 50 mg QHS PO Last administered on 08/31/16 21:16; Start 08/29/16 at 21:00 Lisinopril (Prinivil) 40 mg DAILY PO Last administered on 09/01/16 08:15; Start 08/30/16 at 09:00 Bupropion HCl (Wellbutrin Xl) 300 mg DAILY PO Last administered on 09/01/16 08 :14; Start 08/30/16 at 09:00 Doxycycline Hyclate (Vibra-Tab) 100 mg BID PO Last administered on 08/31/16 08 :18; Start 08/29/16 at 21:00; Stop 08/31/16 at 11:35; Status DC Insulin Aspart (NovoLOG) 20 units TIDAC SQ Last administered on 09/01/16 12:17 ; Start 08/29/16 at 16:30 Insulin Detemir (Levemir) 76 units QHS SQ Last administered on 08/31/16 21:31 ; Start 08/29/16 at 21:00 Linagliptin (Tradjenta) 5 mg DAILY PO Last administered on 09/01/16 08:14; Start 08/30/16 at 09:00 Ziprasidone (Geodon) 40 mg BID PO Last administered on 09/01/16 08:14; Start 08/29/16 at 21:00 Metformin HCl (Glucophage) 1,000 mg BIDWMEALS PO Last administered on 08:23; Start 08/29/16 at 17:00; Stop 08/30/16 at 12:13; Status DC Metoclopramide HCl (Reglan) 10 mg 1X ONCE IV ; Start 08/29/16 at 15:45; Stop at 15:45; Status DC Sulfur Hexafluoride Microspheres (Lumason) 25 mg STK-MED ONCE IVP ; Start at 16:48; Stop 08/29/16 at 16:49; Status DC Albuterol/ Ipratropium (Duoneb) 3 ml RTQID NEB Last administered on 09/01/16 12:38; Start 08/29/16 at 20:00 Budesonide (Pulmicort) 0.5 mg RTBID NEB Last administered on 09/01/16 09:35; Start 08/29/16 at 20:00 Sulfur Hexafluoride Microspheres (Lumason) 25 mg STK-MED ONCE IVP ; Start at 18:57; Stop 08/29/16 at 18:58; Status Cancel Sulfur Hexafluoride Microspheres (Lumason) 25 mg STK-MED ONCE IVP ; Start at 15:00; Stop 08/29/16 at 18:59; Status DC Vancomycin HCl (Vanco Per Pharmacy) 1 each PRN DAILY PRN MC SEE COMMENTS Last administered on 09/01/16 09:15; Start 08/29/16 at 19:30 Vancomycin HCl 2 gm/Sodium Chloride 500 ml @ 250 mls/hr Q8H IV Last administered on 08/30/16 12:29; Start 08/29/16 at 20:00; Stop 08/30/16 at 19:59 ; Status DC Vancomycin HCl 1 each 1X ONCE MC Last administered on 08/30/16 11:30; Start 08/30/16 at 11:30; Stop 08/30/16 at 11:31; Status DC Potassium Chloride (Klor-Con) 80 meq 1X ONCE PO Last administered on 09:00; Start 08/30/16 at 08:45; Stop 08/30/16 at 08:55; Status DC Furosemide (Lasix) 40 mg 1X ONCE IVP Last administered on 08/30/16 08:59; Start 08/30/16 at 08:45; Stop 08/30/16 at 08:55; Status DC Divalproex Sodium (Depakote Er) 2,000 mg HS PO Last administered on 08/31/16 21:16; Start 08/30/16 at 21:00 Pantoprazole Sodium (Protonix) 40 mg 1X ONCE PO Last administered on 12:30; Start 08/30/16 at 10:15; Stop 08/30/16 at 10:17; Status DC Pantoprazole Sodium (Protonix) 40 mg DAILYAC PO Last administered on 09/01/16 08:14; Start 08/31/16 at 07:30 Iohexol (Omnipaque 300 Mg/ml) 75 ml 1X ONCE IV Last administered on 08/30/16 11:58; Start 08/30/16 at 12:00; Stop 08/30/16 at 12:01; Status DC Info (Do NOT chart on this entry -- for MONITORING) 1 each PRN DAILY PRN MC SEE COMMENTS; Start 08/30/16 at 11:45; Stop 09/01/16 at 11:44; Status DC Metformin HCl (Glucophage) 1,000 mg BIDWMEALS PO ; Start 09/01/16 at 17:00 Levofloxacin/ Dextrose 150 ml @ 100 mls/hr Q24H IV ; Start 08/30/16 at 13:00; Status UNV Potassium Chloride (Klor-Con) 40 meq 1X ONCE PO ; Start 08/30/16 at 14:00; Stop 08/30/16 at 14:01; Status DC Vancomycin HCl 1.75 gm/Sodium Chloride 500 ml @ 250 mls/hr Q8H IV Last administered on 09/01/16 08:17; Start 08/31/16 at 08:00 Aztreonam 1 gm/ Sodium Chloride 50 ml @ 100 mls/hr Q8H IV Last administered on 09/01/16 07:00; Start 08/30/16 at 15:00 Enoxaparin Sodium (Lovenox 60mg Syringe) 60 mg Q12HR SQ Last administered on 09:00; Start 08/31/16 at 09:00 Levofloxacin/ Dextrose (Levaquin Per Pharmacy) 1 each PRN DAILY PRN MC SEE COMMENTS; Start 08/31/16 at 11:30; Status UNV Potassium Chloride (Klor-Con) 40 meq 1X ONCE PO Last administered on 12:46; Start 08/31/16 at 11:45; Stop 08/31/16 at 11:51; Status DC Levofloxacin/ Dextrose 150 ml @ 100 mls/hr Q24H IV Last administered on 18:09; Start 08/31/16 at 17:00 Active Scripts Active Reported Geodon (Ziprasidone Hcl) 40 Mg Capsule 1 Cap PO BID Trazodone Hcl 50 Mg Tablet 1 Tab PO QHS Janumet 50-1,000 Mg Tablet (Sitagliptin Phos/Metformin Hcl) 1 Each Tablet 1 Tab PO BID Propranolol Hcl 10 Mg Tablet 1 Tab PO BID Novolog (Insulin Aspart) 100 Unit/1 Ml Cartridge 20 Unit SQ TIDBFRMEAL Lantus Solostar (Insulin Glargine,Hum.rec.anlog) 100 Unit/1 Ml Insuln.pen 76 Unit SQ QHS Hydrocodone-Apap 5-325 (Hydrocodone Bit/Acetaminophen) 1 Each Tablet 1 Tab PO PRN Q6HRS PRN Doxycycline Hyclate 100 Mg Capsule 1 Cap PO BID Divalproex Sodium Er (Divalproex Sodium) 500 Mg Tab.er.24h 2,000 Mg PO DAILY Bupropion Xl (Bupropion Hcl) 300 Mg Tab.er.24h 1 Tab PO DAILYWBKFT Benazepril Hcl 40 Mg Tablet 1 Tab PO DAILY Atorvastatin Calcium 20 Mg Tablet 1 Tab PO DAILY Vitals/I & O Vital Sign - Last 24 Hours 08/31/16 08/31/16 08/31/16 08/31/16 16:00 16:00 19:39 19:39 Temp 99.3 99.3 Pulse 86 Resp 26 B/P (MAP) 154/88 (110) Pulse Ox 94 95 94 94 O2 Delivery High Flow Nasal Cannula NonRebreather Mask High Flow Nasal Cannula High Flow Nasal Cannula O2 Flow Rate 10.0 10.0 10.0 08/31/16 08/31/16 08/31/16 08/31/16 20:00 20:00 21:17 23:00 Temp 100.0 98.5 100.0 98.5 Pulse 82 89 86 Resp 22 25 B/P (MAP) 123/79 (94) 163/83 176/97 (123) Pulse Ox 96 92 O2 Delivery NonRebreather Mask Non-Rebreather NonRebreather Mask 08/31/16 09/01/16 09/01/16 09/01/16 23:52 03:19 04:00 05:23 Temp 98.5 98.5 Pulse 86 Resp 25 B/P (MAP) 176/97 (123) Pulse Ox 90 95 92 95 O2 Delivery BiPAP/CPAP BiPAP/CPAP NonRebreather Mask BiPAP/CPAP 09/01/16 09/01/16 09/01/16 09/01/16 08:00 08:14 08:15 09:35 Pulse 86 86 B/P (MAP) 176/97 176/97 Pulse Ox 92 O2 Delivery Bi-pap High Flow Nasal Cannula O2 Flow Rate 10.0 Intake and Output 08/31/16 08/31/16 09/01/16 15:00 23:00 07:00 Intake Total 900 ml 1050 ml Output Total 600 ml 475 ml 550 ml Balance 300 ml 575 ml -550 ml MARRY WOODS MD Sep 01, 2016 12:48
--- NOTE | 2016-09-01 15:17 | PDOC ---
PULMONARY PROGRESS NOTES Subjective PT WITH NO INCREASE SOA Vitals Vital Signs Date Time Temp Pulse Resp B/P (MAP) Pulse Ox O2 Delivery O2 Flow Rate FiO2 09/01/16 12:38 92 High Flow Nasal Cannula 10.0 09/01/16 08:15 86 176/97 09/01/16 04:00 98.5 25 98.5 ROS: No Nausea, No Abdominal Pain, No Increase Cough General: Alert HEENT: Other (nc at perrl, shallow oropharynx, nose clear, neck...no lap, thyromegaly) Lungs: Clear Cardiovascular: S1, S2 Abdomen: Soft, Non-tender, Other (no mass) Neuro Exam: Alert Extremities: Other (DECREASE EDEMA) Skin: Warm Labs Laboratory Tests Test 08/30/16 17:31 08/30/16 21:12 08/31/16 04:00 08/31/16 05:00 Glucose (Fingerstick) 127 mg/dL (70-99) 143 mg/dL (70-99) White Blood Count 11.8 x10^3/uL (4.0-11.0) Red Blood Count 4.00 x10^6/uL (4.30-5.70) Hemoglobin 13.9 g/dL (13.0-17.5) Hematocrit 40.3 % (39.0-53.0) Mean Corpuscular Volume 101 fL (79-100) Mean Corpuscular Hemoglobin 35 pg (25-35) Mean Corpuscular Hemoglobin Concent 35 g/dL (31-37) Red Cell Distribution Width 13.3 % (11.5-14.5) Platelet Count 167 x10^3/uL (140-400) Neutrophils (%) (Auto) 62 % (31-73) Lymphocytes (%) (Auto) 24 % (24-48) Monocytes (%) (Auto) 12 % (0-9) Eosinophils (%) (Auto) 1 % (0-3) Basophils (%) (Auto) 1 % (0-3) Neutrophils # (Auto) 7.3 x10^3uL (1.8-7.7) Lymphocytes # (Auto) 2.8 x10^3/uL (1.0-4.8) Monocytes # (Auto) 1.4 x10^3/uL (0.0-1.1) Eosinophils # (Auto) 0.2 x10^3/uL (0.0-0.7) Basophils # (Auto) 0.1 x10^3/uL (0.0-0.2) Sodium Level 143 mmol/L (136-145) Potassium Level 3.3 mmol/L (3.5-5.1) Chloride Level 104 mmol/L (98-107) Carbon Dioxide Level 32 mmol/L (21-32) Anion Gap 7 (6-14) Blood Urea Nitrogen 10 mg/dL (8-26) Creatinine 0.9 mg/dL (0.7-1.3) Estimated GFR (Cockcroft-Gault) 91.7 Glucose Level 102 mg/dL (70-99) Calcium Level 8.9 mg/dL (8.5-10.1) Magnesium Level 1.9 mg/dL (1.8-2.4) FJ-Tys-V-Type Natriuretic Peptide 260 pg/mL (0-124) Test 08/31/16 08:00 08/31/16 08:21 08/31/16 12:39 08/31/16 17:27 O2 Saturation 92 % (92-99) Arterial Blood pH 7.46 (7.35-7.45) Arterial Blood pCO2 at Patient Temp 42 mmHg (35-46) Arterial Blood pO2 at Patient Temp 64 mmHg (75-108) Arterial Blood HCO3 29 mmol/L (21-28) Arterial Blood Base Excess 5 mmol/L (-3-3) FiO2 50 Glucose (Fingerstick) 108 mg/dL (70-99) 163 mg/dL (70-99) 130 mg/dL (70-99) Test 08/31/16 21:26 09/01/16 05:30 09/01/16 12:14 Glucose (Fingerstick) 113 mg/dL (70-99) 145 mg/dL (70-99) White Blood Count 11.4 x10^3/uL (4.0-11.0) Red Blood Count 3.87 x10^6/uL (4.30-5.70) Hemoglobin 13.6 g/dL (13.0-17.5) Hematocrit 38.2 % (39.0-53.0) Mean Corpuscular Volume 99 fL (79-100) Mean Corpuscular Hemoglobin 35 pg (25-35) Mean Corpuscular Hemoglobin Concent 36 g/dL (31-37) Red Cell Distribution Width 13.3 % (11.5-14.5) Platelet Count 189 x10^3/uL (140-400) Neutrophils (%) (Auto) 57 % (31-73) Lymphocytes (%) (Auto) 28 % (24-48) Monocytes (%) (Auto) 13 % (0-9) Eosinophils (%) (Auto) 3 % (0-3) Basophils (%) (Auto) 1 % (0-3) Neutrophils # (Auto) 6.5 x10^3uL (1.8-7.7) Lymphocytes # (Auto) 3.2 x10^3/uL (1.0-4.8) Monocytes # (Auto) 1.4 x10^3/uL (0.0-1.1) Eosinophils # (Auto) 0.3 x10^3/uL (0.0-0.7) Basophils # (Auto) 0.1 x10^3/uL (0.0-0.2) Sodium Level 144 mmol/L (136-145) Potassium Level 3.5 mmol/L (3.5-5.1) Chloride Level 106 mmol/L (98-107) Carbon Dioxide Level 29 mmol/L (21-32) Anion Gap 9 (6-14) Blood Urea Nitrogen 13 mg/dL (8-26) Creatinine 0.9 mg/dL (0.7-1.3) Estimated GFR (Cockcroft-Gault) 91.7 Glucose Level 91 mg/dL (70-99) Calcium Level 8.2 mg/dL (8.5-10.1) Laboratory Tests Test 08/31/16 17:27 08/31/16 21:26 09/01/16 05:30 09/01/16 12:14 Glucose (Fingerstick) 130 mg/dL (70-99) 113 mg/dL (70-99) 145 mg/dL (70-99) White Blood Count 11.4 x10^3/uL (4.0-11.0) Red Blood Count 3.87 x10^6/uL (4.30-5.70) Hemoglobin 13.6 g/dL (13.0-17.5) Hematocrit 38.2 % (39.0-53.0) Mean Corpuscular Volume 99 fL (79-100) Mean Corpuscular Hemoglobin 35 pg (25-35) Mean Corpuscular Hemoglobin Concent 36 g/dL (31-37) Red Cell Distribution Width 13.3 % (11.5-14.5) Platelet Count 189 x10^3/uL (140-400) Neutrophils (%) (Auto) 57 % (31-73) Lymphocytes (%) (Auto) 28 % (24-48) Monocytes (%) (Auto) 13 % (0-9) Eosinophils (%) (Auto) 3 % (0-3) Basophils (%) (Auto) 1 % (0-3) Neutrophils # (Auto) 6.5 x10^3uL (1.8-7.7) Lymphocytes # (Auto) 3.2 x10^3/uL (1.0-4.8) Monocytes # (Auto) 1.4 x10^3/uL (0.0-1.1) Eosinophils # (Auto) 0.3 x10^3/uL (0.0-0.7) Basophils # (Auto) 0.1 x10^3/uL (0.0-0.2) Sodium Level 144 mmol/L (136-145) Potassium Level 3.5 mmol/L (3.5-5.1) Chloride Level 106 mmol/L (98-107) Carbon Dioxide Level 29 mmol/L (21-32) Anion Gap 9 (6-14) Blood Urea Nitrogen 13 mg/dL (8-26) Creatinine 0.9 mg/dL (0.7-1.3) Estimated GFR (Cockcroft-Gault) 91.7 Glucose Level 91 mg/dL (70-99) Calcium Level 8.2 mg/dL (8.5-10.1) Medications Active Scripts Medications Dose Route/Sig Max Daily Dose Days Date Category Geodon (Ziprasidone Hcl) 40 Mg Capsule 1 Cap PO BID 08/29/16 Reported Trazodone Hcl 50 Mg Tablet 1 Tab PO QHS 08/29/16 Reported Janumet 50-1,000 Mg Tablet (Sitagliptin Phos/Metformin Hcl) 1 Each Tablet 1 Tab PO BID 08/29/16 Reported Propranolol Hcl 10 Mg Tablet 1 Tab PO BID 08/29/16 Reported Novolog (Insulin Aspart) 100 Unit/1 Ml Cartridge 20 Unit SQ TIDBFRMEAL 08/29/16 Reported Lantus Solostar (Insulin Glargine,Hum.rec.anlog) 100 Unit/1 Ml Insuln.pen 76 Unit SQ QHS 08/29/16 Reported Hydrocodone-Apap 5-325 (Hydrocodone Bit/Acetaminophen) 1 Each Tablet 1 Tab PO PRN Q6HRS PRN 08/29/16 Reported Doxycycline Hyclate 100 Mg Capsule 1 Cap PO BID 08/29/16 Reported Divalproex Sodium Er (Divalproex Sodium) 500 Mg Tab.er.24h 2,000 Mg PO DAILY 08/29/16 Reported Bupropion Xl (Bupropion Hcl) 300 Mg Tab.er.24h 1 Tab PO DAILYWBKFT 08/29/16 Reported Benazepril Hcl 40 Mg Tablet 1 Tab PO DAILY 08/29/16 Reported Atorvastatin Calcium 20 Mg Tablet 1 Tab PO DAILY 08/29/16 Reported Comments Extensive infiltrates in the left upper and lower lobes and to a lesser extent in the right upper lobe most compatible with pneumonia. Volume loss in the right middle and lower lobes may reflect atelectasis, scar or pneumonia. The study evaluating for pulmonary embolus is limited. There are no large central pulmonary emboli. Thrombus distally in the right main pulmonary artery and in the lobar branches to the left lower lobe is not excluded Impression . 1. Acute hypoxemic respiratory failure, multifactorial 2. Abnormal chest x-ray. 3. Ex-smoker ?chronic obstructive pulmonary disease. 4. Obstructive sleep apnea-hypopnea syndrome. 5. Hypertension. 6. Diabetes mellitus. 7. Obesity. 8. Cellulitis. 9. CTA with possible thrombus, venous Doppler lower ext negative Plan . ok to transfer home cpap decrease 02 antibx per KEEGAN Trotter MD Sep 01, 2016 15:17
[2016-09-01 16:00] VITALS: BP 181/94
[2016-09-01 20:07] VITALS: BP 151/95
[2016-09-01] MEDS: DIVALPROEX EXTENDED RELEASE 500 MG TAB.ER.24H. PO SCH (21:23)
[2016-09-01] MEDS: traZODone 50 MG TABLET. PO SCH (21:24)
[2016-09-01] MEDS: ATORVASTATIN CALCIUM 20 MG TABLET PO SCH (21:24)
[2016-09-01] MEDS: INSULIN DETEMIR 300 UNITS/3 ML INSULN.PEN. SQ SCH (21:28)
--- NOTE | 2016-09-01 21:48 | RAD ---
EXAM: Left wrist 2 views. HISTORY: Lateral wrist pain and swelling. COMPARISON: None. FINDINGS: No fractures are identified. There is an ill-defined calcific density along the anterior pole of the scaphoid measuring 4 mm. This does not clearly represent a fracture fragment. There is mild triscaphe osteoarthritis. Negative ulnar variance measures 4 mm. The lunate is not sclerotic. Alignment is maintained. There is diffuse soft tissue swelling. IMPRESSION: 1. A calcific density at the distal pole of the scaphoid may represent a loose body, or possibly soft tissue tophus in the setting of crystalline arthropathy. Correlate with other clinical data. 2. Mild triscaphe osteoarthritis. 3. Diffuse soft tissue swelling. Electronically signed by: Antonio Navarro MD (09/01/2016 9:45 PM) [facility]
[2016-09-02] VITALS (8 sets, daily range): BP systolic 145–181; BP diastolic 77–90
[2016-09-02 05:57] LABS: CALCIUM 8.1 mg/dL (8.5-10.1); CREATININE 0.9 mg/dL (0.7-1.3); GFR 91.7; POTASSIUM 3.5 mmol/L (3.5-5.1)
[2016-09-02] MEDS: AZTREONAM 1 GM in IV NORMAL SALINE 50ML 50 ML IV SCH ×3 (06:30→23:40)
[2016-09-02] MEDS: INSULIN ASPART 300 UNITS/3 ML INSULN.PEN SQ SCH ×6 (07:30→17:00)
[2016-09-02 08:13] LABS: BASO # 0.2 x10^3/uL (0.0-0.2); BASO % 1 % (0-3); EOS % 3 % (0-3); HEMATOCRIT 39.4 % (39.0-53.0); HEMOGLOBIN 13.5 g/dL (13.0-17.5); LYMPH # 3.3 x10^3/uL (1.0-4.8); LYMPH % 24 % (24-48); MEAN CORPUSCULAR HEMOGLOBIN 35 pg (25-35); MEAN CORPUSCULAR HGB CONC 34 g/dL (31-37); MEAN CORPUSCULAR VOLUME 101 fL (79-100); MONO % 11 % (0-9); NEUT % 61 % (31-73); PLATELET COUNT 203 x10^3/uL (140-400); WHITE BLOOD COUNT 13.4 x10^3/uL (4.0-11.0)
--- NOTE | 2016-09-02 08:46 | PDOC ---
Infectious Disease Note Subjective Subjective Breathing comfortably, on high flow O2 now and BiPAP at night c/o left wrist/hand swelling, pain and decrease ROM. Denies h/o trauma, gout or arthritis No fever last 24 hours ROS ROS GEN: Denies chills, sweats CV: Denies chest pain RESP: Denies shortness of air, cough GI: Denies n/v/d Vital Sign Vital Signs Vital Signs Date Time Temp Pulse Resp B/P (MAP) Pulse Ox O2 Delivery O2 Flow Rate FiO2 09/02/16 05:10 94 BiPAP/CPAP 09/02/16 04:00 10.0 09/02/16 04:00 72 18 164/89 (114) 09/02/16 00:00 98.2 98.2 Physical Exam PHYSICAL EXAM GENERAL: Propped up in bed, NAD HEENT: Oral mucosa dry NECK: Supple. LUNGS: Diminished aeration. HEART: Normal S1, S2. ABDOMEN: Obese, bowel sounds are present, soft and nontender. EXTREMITIES: Less bilateral lower extremity edema. No cyanosis. Left wrist/ hand swelling, limited ROM SKIN: Without rash. Warm to touch. NEUROLOGIC: Alert and oriented x 3. Moves all extremities. Peripheral IV Labs Lab Laboratory Tests Test 09/01/16 12:14 09/01/16 17:21 09/01/16 21:21 09/02/16 04:45 Glucose (Fingerstick) 145 mg/dL (70-99) 117 mg/dL (70-99) 136 mg/dL (70-99) Sodium Level 145 mmol/L (136-145) Potassium Level 3.5 mmol/L (3.5-5.1) Chloride Level 105 mmol/L (98-107) Carbon Dioxide Level 30 mmol/L (21-32) Anion Gap 10 (6-14) Blood Urea Nitrogen 13 mg/dL (8-26) Creatinine 0.9 mg/dL (0.7-1.3) Estimated GFR (Cockcroft-Gault) 91.7 Glucose Level 64 mg/dL (70-99) Calcium Level 8.1 mg/dL (8.5-10.1) Test 09/02/16 08:10 09/02/16 08:13 White Blood Count 13.4 x10^3/uL (4.0-11.0) Red Blood Count 3.90 x10^6/uL (4.30-5.70) Hemoglobin 13.5 g/dL (13.0-17.5) Hematocrit 39.4 % (39.0-53.0) Mean Corpuscular Volume 101 fL (79-100) Mean Corpuscular Hemoglobin 35 pg (25-35) Mean Corpuscular Hemoglobin Concent 34 g/dL (31-37) Red Cell Distribution Width 13.0 % (11.5-14.5) Platelet Count 203 x10^3/uL (140-400) Neutrophils (%) (Auto) 61 % (31-73) Lymphocytes (%) (Auto) 24 % (24-48) Monocytes (%) (Auto) 11 % (0-9) Eosinophils (%) (Auto) 3 % (0-3) Basophils (%) (Auto) 1 % (0-3) Neutrophils # (Auto) 8.2 x10^3uL (1.8-7.7) Lymphocytes # (Auto) 3.3 x10^3/uL (1.0-4.8) Monocytes # (Auto) 1.5 x10^3/uL (0.0-1.1) Eosinophils # (Auto) 0.3 x10^3/uL (0.0-0.7) Basophils # (Auto) 0.2 x10^3/uL (0.0-0.2) Glucose (Fingerstick) 78 mg/dL (70-99) WRIST 2V LEFT FINDINGS: No fractures are identified. There is an ill-defined calcific density along the anterior pole of the scaphoid measuring 4 mm. This does not clearly represent a fracture fragment. There is mild triscaphe osteoarthritis. Negative ulnar variance measures 4 mm. The lunate is not sclerotic. Alignment is maintained. There is diffuse soft tissue swelling. IMPRESSION: 1. A calcific density at the distal pole of the scaphoid may represent a loose body, or possibly soft tissue tophus in the setting of crystalline arthropathy. Correlate with other clinical data. 2. Mild triscaphe osteoarthritis. 3. Diffuse soft tissue swelling. Micro BLOOD CULTURE Preliminary NO GROWTH AFTER 3 DAYS Objective Assessment HCAP Leukocytosis Cellulitis of abdominal wall, resolving PCN allergy, swelling of the throat with amoxicillin. No recall of tolerating cephalosporins. Left wrist/hand pain and swelling. ? gout/arthritis flare Acute HF h/o MRSA SSTI Morbid obesity Plan Plan of Care Zyvox, Aztreonam and Levaquin Culture are negative so far. Monitor WBC, renal function and temp Supportive care ? ortho eval Attending Co-Sign The patient was seen and interviewed as well as examined at the bedside. The chart was reviewed. The case was discussed. Agree with the plan of care. STEFFANY LUCIO APRN Sep 02, 2016 08:46 MAYO CASTRO MD Sep 02, 2016 14:19
[2016-09-02] MEDS ORDERED: IBUPROFEN 600 MG TABLET. PO PRN (09:00)
[2016-09-02] MEDS: IPRATRPIUM/ALBUTEROL 0.5/2.5MG 3 ML NEBU. NEB SCH ×4 (09:12→20:21)
[2016-09-02] MEDS: BUDESONIDE 0.5 MG/2 ML NEBU. NEB SCH ×2 (09:12→20:21)
[2016-09-02] MEDS: buPROPion XL 150 MG TAB.ER.24H. PO SCH (09:26)
[2016-09-02] MEDS: PANTOPRAZOLE 40 MG TABLET.DR. PO SCH (09:27)
[2016-09-02] MEDS: LISINOPRIL 40 MG TABLET. PO SCH (09:27)
[2016-09-02] MEDS: LINAGLIPTIN 5 MG TABLET PO SCH (09:27)
[2016-09-02] MEDS: ZIPRASIDONE 20 MG CAPSULE PO SCH ×2 (09:27→21:10)
[2016-09-02] MEDS: PROPRANOLOL 10 MG TABLET. PO SCH ×2 (09:28→21:11)
[2016-09-02] MEDS ORDERED: FUROSEMIDE 40 MG/4 ML VIAL. IVP ONE (09:30)
--- NOTE | 2016-09-02 13:01 | PDOC ---
PROGRESS NOTES Chief Complaint Chief Complaint Complaint: Shortness of breath Assessment and plan Acute hypoxic respiratory failure multifactorial. HAP, obesity hypoventilation left side Abdominal wall cellulitis: Resolving Leukocytosis Morbid obesity Hyperglycemia with type 2 diabetes mellitus insulin-dependent left wrist pain, with arthritis? gout? pseudogout? Plan Despite diuresis patient is hypoxic at rest, requiring nonrebreather initial CT of the chest ruled out PE however questionable pneumonia. Patient did not have any fevers, blood cultures no growth so far. His abdominal wall cellulitis is resolving Continue BiPAP as needed at night, high flow at 12-15 L during daytime lasix 40mg iv x1 fu with ID, on levaquin, azetreonam and vanco ortho consult for left wrist pain, check UA, add NSAIDS DEcrese levemir to 70u qhs, aspart 20u tid, SSI ok to transfer out of ICU fu with pulm, ID. History of Present Illness History of Present Illness Shortness of breath is better,bipap at night, high flow at 12-15L yesterday and today No fever No chest pain CTA showed HAC, neg PE, DVT neg on US Echo EF 60% left wrist pain, denies gout before hypoglycemia one time today at 64 Vitals Vitals Vital Signs Date Time Temp Pulse Resp B/P (MAP) Pulse Ox O2 Delivery O2 Flow Rate FiO2 09/02/16 12:00 High Flow Nasal Cannula 15.0 09/02/16 09:28 92 172/86 09/02/16 09:14 96 09/02/16 07:50 26 09/02/16 00:00 98.2 98.2 Physical Exam General: Alert, Oriented X3 Heart: Regular rate, Normal S1, Normal S2 Lungs: Clear Abdomen: Normal bowel sounds, Other (edema +2) Extremities: No clubbing, Other (left wrist mild swelling) Skin: Other (decreased redness on the abdomen) Labs LABS Laboratory Tests Test 09/01/16 17:21 09/01/16 21:21 09/02/16 04:45 09/02/16 08:10 Glucose (Fingerstick) 117 mg/dL (70-99) 136 mg/dL (70-99) Sodium Level 145 mmol/L (136-145) Potassium Level 3.5 mmol/L (3.5-5.1) Chloride Level 105 mmol/L (98-107) Carbon Dioxide Level 30 mmol/L (21-32) Anion Gap 10 (6-14) Blood Urea Nitrogen 13 mg/dL (8-26) Creatinine 0.9 mg/dL (0.7-1.3) Estimated GFR (Cockcroft-Gault) 91.7 Glucose Level 64 mg/dL (70-99) Calcium Level 8.1 mg/dL (8.5-10.1) White Blood Count 13.4 x10^3/uL (4.0-11.0) Red Blood Count 3.90 x10^6/uL (4.30-5.70) Hemoglobin 13.5 g/dL (13.0-17.5) Hematocrit 39.4 % (39.0-53.0) Mean Corpuscular Volume 101 fL (79-100) Mean Corpuscular Hemoglobin 35 pg (25-35) Mean Corpuscular Hemoglobin Concent 34 g/dL (31-37) Red Cell Distribution Width 13.0 % (11.5-14.5) Platelet Count 203 x10^3/uL (140-400) Neutrophils (%) (Auto) 61 % (31-73) Lymphocytes (%) (Auto) 24 % (24-48) Monocytes (%) (Auto) 11 % (0-9) Eosinophils (%) (Auto) 3 % (0-3) Basophils (%) (Auto) 1 % (0-3) Neutrophils # (Auto) 8.2 x10^3uL (1.8-7.7) Lymphocytes # (Auto) 3.3 x10^3/uL (1.0-4.8) Monocytes # (Auto) 1.5 x10^3/uL (0.0-1.1) Eosinophils # (Auto) 0.3 x10^3/uL (0.0-0.7) Basophils # (Auto) 0.2 x10^3/uL (0.0-0.2) Test 09/02/16 08:13 09/02/16 11:27 Glucose (Fingerstick) 78 mg/dL (70-99) 177 mg/dL (70-99) Review of Systems Review of Systems no fever, chills, chest pain Assessment and Plan Assessmemt and Plan Problems Medical Problems: (1) Cellulitis Status: Acute (2) Congestive heart failure Status: Acute (3) Hypoxia Status: Acute (4) Respiratory insufficiency Status: Acute Problems: Comment Review of Relevant I have reviewed the following items devin (where applicable) has been applied. Labs Laboratory Tests Test 08/31/16 17:27 08/31/16 21:26 09/01/16 05:30 09/01/16 12:14 Glucose (Fingerstick) 130 mg/dL (70-99) 113 mg/dL (70-99) 145 mg/dL (70-99) White Blood Count 11.4 x10^3/uL (4.0-11.0) Red Blood Count 3.87 x10^6/uL (4.30-5.70) Hemoglobin 13.6 g/dL (13.0-17.5) Hematocrit 38.2 % (39.0-53.0) Mean Corpuscular Volume 99 fL (79-100) Mean Corpuscular Hemoglobin 35 pg (25-35) Mean Corpuscular Hemoglobin Concent 36 g/dL (31-37) Red Cell Distribution Width 13.3 % (11.5-14.5) Platelet Count 189 x10^3/uL (140-400) Neutrophils (%) (Auto) 57 % (31-73) Lymphocytes (%) (Auto) 28 % (24-48) Monocytes (%) (Auto) 13 % (0-9) Eosinophils (%) (Auto) 3 % (0-3) Basophils (%) (Auto) 1 % (0-3) Neutrophils # (Auto) 6.5 x10^3uL (1.8-7.7) Lymphocytes # (Auto) 3.2 x10^3/uL (1.0-4.8) Monocytes # (Auto) 1.4 x10^3/uL (0.0-1.1) Eosinophils # (Auto) 0.3 x10^3/uL (0.0-0.7) Basophils # (Auto) 0.1 x10^3/uL (0.0-0.2) Sodium Level 144 mmol/L (136-145) Potassium Level 3.5 mmol/L (3.5-5.1) Chloride Level 106 mmol/L (98-107) Carbon Dioxide Level 29 mmol/L (21-32) Anion Gap 9 (6-14) Blood Urea Nitrogen 13 mg/dL (8-26) Creatinine 0.9 mg/dL (0.7-1.3) Estimated GFR (Cockcroft-Gault) 91.7 Glucose Level 91 mg/dL (70-99) Calcium Level 8.2 mg/dL (8.5-10.1) Test 09/01/16 17:21 09/01/16 21:21 09/02/16 04:45 09/02/16 08:10 Glucose (Fingerstick) 117 mg/dL (70-99) 136 mg/dL (70-99) Sodium Level 145 mmol/L (136-145) Potassium Level 3.5 mmol/L (3.5-5.1) Chloride Level 105 mmol/L (98-107) Carbon Dioxide Level 30 mmol/L (21-32) Anion Gap 10 (6-14) Blood Urea Nitrogen 13 mg/dL (8-26) Creatinine 0.9 mg/dL (0.7-1.3) Estimated GFR (Cockcroft-Gault) 91.7 Glucose Level 64 mg/dL (70-99) Calcium Level 8.1 mg/dL (8.5-10.1) White Blood Count 13.4 x10^3/uL (4.0-11.0) Red Blood Count 3.90 x10^6/uL (4.30-5.70) Hemoglobin 13.5 g/dL (13.0-17.5) Hematocrit 39.4 % (39.0-53.0) Mean Corpuscular Volume 101 fL (79-100) Mean Corpuscular Hemoglobin 35 pg (25-35) Mean Corpuscular Hemoglobin Concent 34 g/dL (31-37) Red Cell Distribution Width 13.0 % (11.5-14.5) Platelet Count 203 x10^3/uL (140-400) Neutrophils (%) (Auto) 61 % (31-73) Lymphocytes (%) (Auto) 24 % (24-48) Monocytes (%) (Auto) 11 % (0-9) Eosinophils (%) (Auto) 3 % (0-3) Basophils (%) (Auto) 1 % (0-3) Neutrophils # (Auto) 8.2 x10^3uL (1.8-7.7) Lymphocytes # (Auto) 3.3 x10^3/uL (1.0-4.8) Monocytes # (Auto) 1.5 x10^3/uL (0.0-1.1) Eosinophils # (Auto) 0.3 x10^3/uL (0.0-0.7) Basophils # (Auto) 0.2 x10^3/uL (0.0-0.2) Test 09/02/16 08:13 09/02/16 11:27 Glucose (Fingerstick) 78 mg/dL (70-99) 177 mg/dL (70-99) Laboratory Tests Test 09/01/16 17:21 09/01/16 21:21 09/02/16 04:45 09/02/16 08:10 Glucose (Fingerstick) 117 mg/dL (70-99) 136 mg/dL (70-99) Sodium Level 145 mmol/L (136-145) Potassium Level 3.5 mmol/L (3.5-5.1) Chloride Level 105 mmol/L (98-107) Carbon Dioxide Level 30 mmol/L (21-32) Anion Gap 10 (6-14) Blood Urea Nitrogen 13 mg/dL (8-26) Creatinine 0.9 mg/dL (0.7-1.3) Estimated GFR (Cockcroft-Gault) 91.7 Glucose Level 64 mg/dL (70-99) Calcium Level 8.1 mg/dL (8.5-10.1) White Blood Count 13.4 x10^3/uL (4.0-11.0) Red Blood Count 3.90 x10^6/uL (4.30-5.70) Hemoglobin 13.5 g/dL (13.0-17.5) Hematocrit 39.4 % (39.0-53.0) Mean Corpuscular Volume 101 fL (79-100) Mean Corpuscular Hemoglobin 35 pg (25-35) Mean Corpuscular Hemoglobin Concent 34 g/dL (31-37) Red Cell Distribution Width 13.0 % (11.5-14.5) Platelet Count 203 x10^3/uL (140-400) Neutrophils (%) (Auto) 61 % (31-73) Lymphocytes (%) (Auto) 24 % (24-48) Monocytes (%) (Auto) 11 % (0-9) Eosinophils (%) (Auto) 3 % (0-3) Basophils (%) (Auto) 1 % (0-3) Neutrophils # (Auto) 8.2 x10^3uL (1.8-7.7) Lymphocytes # (Auto) 3.3 x10^3/uL (1.0-4.8) Monocytes # (Auto) 1.5 x10^3/uL (0.0-1.1) Eosinophils # (Auto) 0.3 x10^3/uL (0.0-0.7) Basophils # (Auto) 0.2 x10^3/uL (0.0-0.2) Test 09/02/16 08:13 09/02/16 11:27 Glucose (Fingerstick) 78 mg/dL (70-99) 177 mg/dL (70-99) Microbiology 08/29/16 Blood Culture - Preliminary, Resulted NO GROWTH AFTER 3 DAYS Medications Current Medications Furosemide (Lasix) 80 mg 1X ONCE IVP Last administered on 08/29/16 10:36; Start 08/29/16 at 10:15; Stop 08/29/16 at 10:31; Status DC Nitroglycerin (Nitrostat) 0.4 mg PRN Q5MIN PRN SL CHEST PAIN; Start 08/29/16 at 10:15 Vancomycin HCl 250 ml @ 250 mls/hr 1X ONCE IV ; Start 08/29/16 at 11:15; Stop 08/29/16 at 12:14; Status UNV Vancomycin HCl 2 gm/Sodium Chloride 500 ml @ 250 mls/hr 1X ONCE IV Last administered on 08/29/16 12:10; Start 08/29/16 at 11:30; Stop 08/29/16 at 13:29 ; Status DC Enoxaparin Sodium (Lovenox 40mg Syringe) 40 mg Q24H SQ ; Start 08/29/16 at 14:30 ; Stop 08/29/16 at 14:40; Status DC Acetaminophen (Tylenol) 325 mg PRN Q6HRS PRN PO MILD PAIN / TEMP Last administered on 08/31/16 17:29; Start 08/29/16 at 14:30 Acetaminophen/ Hydrocodone Bitart (Lortab 5/325) 1 tab PRN Q6HRS PRN PO MODERATE TO SEVERE PAIN; Start 08/29/16 at 14:30; Stop 08/29/16 at 15:31; Status DC Hydralazine HCl (Apresoline) 10 mg PRN Q4HRS PRN IVP ELEVATED BP, SEE COMMENTS ; Start 08/29/16 at 14:30 Ondansetron HCl (Zofran) 4 mg PRN Q8HRS PRN IV NAUSEA/VOMITING; Start 08/29/16 at 14:30 Albuterol Sulfate (Ventolin Neb Soln) 2.5 mg PRN Q4HRS PRN NEB SHORTNESS OF BREATH; Start 08/29/16 at 14:30 Enoxaparin Sodium (Lovenox 40mg Syringe) 40 mg Q12HR SQ Last administered on 21:06; Start 08/29/16 at 21:00; Stop 08/31/16 at 08:00; Status DC Furosemide (Lasix) 40 mg 1X ONCE IVP Last administered on 08/29/16 17:17; Start 08/29/16 at 18:00; Stop 08/29/16 at 18:01; Status DC Insulin Aspart (NovoLOG) 0-9 UNITS TIDWMEALS SQ Last administered on 09/02/16 12:14; Start 08/29/16 at 17:00 Dextrose (Dextrose 50%-Water Syringe) 12.5 gm PRN Q15MIN PRN IV SEE COMMENTS; Start 08/29/16 at 15:15 Atorvastatin Calcium (Lipitor) 20 mg QHS PO Last administered on 09/01/16 21: 24; Start 08/29/16 at 21:00 Divalproex Sodium (Depakote Er) 2,000 mg DAILY PO ; Start 08/30/16 at 09:00; Stop 08/30/16 at 09:11; Status DC Acetaminophen/ Hydrocodone Bitart (Lortab 5/325) 1 tab PRN Q6HRS PRN PO PAIN Last administered on 09/01/16 21:24; Start 08/29/16 at 15:30 Propranolol HCl (Inderal) 10 mg BID PO Last administered on 09/02/16 09:28; Start 08/29/16 at 21:00 Trazodone HCl (Desyrel) 50 mg QHS PO Last administered on 09/01/16 21:24; Start 08/29/16 at 21:00 Lisinopril (Prinivil) 40 mg DAILY PO Last administered on 09/02/16 09:27; Start 08/30/16 at 09:00 Bupropion HCl (Wellbutrin Xl) 300 mg DAILY PO Last administered on 09/02/16 09 :26; Start 08/30/16 at 09:00 Doxycycline Hyclate (Vibra-Tab) 100 mg BID PO Last administered on 08/31/16 08 :18; Start 08/29/16 at 21:00; Stop 08/31/16 at 11:35; Status DC Insulin Aspart (NovoLOG) 20 units TIDAC SQ Last administered on 09/02/16 12:13 ; Start 08/29/16 at 16:30 Insulin Detemir (Levemir) 76 units QHS SQ Last administered on 09/01/16 21:28 ; Start 08/29/16 at 21:00; Stop 09/02/16 at 09:01; Status DC Linagliptin (Tradjenta) 5 mg DAILY PO Last administered on 09/02/16 09:27; Start 08/30/16 at 09:00 Ziprasidone (Geodon) 40 mg BID PO Last administered on 09/02/16 09:27; Start 08/29/16 at 21:00 Metformin HCl (Glucophage) 1,000 mg BIDWMEALS PO Last administered on 08:23; Start 08/29/16 at 17:00; Stop 08/30/16 at 12:13; Status DC Metoclopramide HCl (Reglan) 10 mg 1X ONCE IV ; Start 08/29/16 at 15:45; Stop at 15:45; Status DC Sulfur Hexafluoride Microspheres (Lumason) 25 mg STK-MED ONCE IVP ; Start at 16:48; Stop 08/29/16 at 16:49; Status DC Albuterol/ Ipratropium (Duoneb) 3 ml RTQID NEB Last administered on 09/02/16 11:58; Start 08/29/16 at 20:00 Budesonide (Pulmicort) 0.5 mg RTBID NEB Last administered on 09/02/16 09:12; Start 08/29/16 at 20:00 Sulfur Hexafluoride Microspheres (Lumason) 25 mg STK-MED ONCE IVP ; Start at 18:57; Stop 08/29/16 at 18:58; Status Cancel Sulfur Hexafluoride Microspheres (Lumason) 25 mg STK-MED ONCE IVP ; Start at 15:00; Stop 08/29/16 at 18:59; Status DC Vancomycin HCl (Vanco Per Pharmacy) 1 each PRN DAILY PRN MC SEE COMMENTS Last administered on 09/01/16 09:15; Start 08/29/16 at 19:30; Stop 09/01/16 at 14:41 ; Status DC Vancomycin HCl 2 gm/Sodium Chloride 500 ml @ 250 mls/hr Q8H IV Last administered on 08/30/16 12:29; Start 08/29/16 at 20:00; Stop 08/30/16 at 19:59 ; Status DC Vancomycin HCl 1 each 1X ONCE MC Last administered on 08/30/16 11:30; Start 08/30/16 at 11:30; Stop 08/30/16 at 11:31; Status DC Potassium Chloride (Klor-Con) 80 meq 1X ONCE PO Last administered on 09:00; Start 08/30/16 at 08:45; Stop 08/30/16 at 08:55; Status DC Furosemide (Lasix) 40 mg 1X ONCE IVP Last administered on 08/30/16 08:59; Start 08/30/16 at 08:45; Stop 08/30/16 at 08:55; Status DC Divalproex Sodium (Depakote Er) 2,000 mg HS PO Last administered on 09/01/16 21:23; Start 08/30/16 at 21:00 Pantoprazole Sodium (Protonix) 40 mg 1X ONCE PO Last administered on 12:30; Start 08/30/16 at 10:15; Stop 08/30/16 at 10:17; Status DC Pantoprazole Sodium (Protonix) 40 mg DAILYAC PO Last administered on 09/02/16 09:27; Start 08/31/16 at 07:30 Iohexol (Omnipaque 300 Mg/ml) 75 ml 1X ONCE IV Last administered on 08/30/16 11:58; Start 08/30/16 at 12:00; Stop 08/30/16 at 12:01; Status DC Info (Do NOT chart on this entry -- for MONITORING) 1 each PRN DAILY PRN MC SEE COMMENTS; Start 08/30/16 at 11:45; Stop 09/01/16 at 11:44; Status DC Metformin HCl (Glucophage) 1,000 mg BIDWMEALS PO Last administered on 09:27; Start 09/01/16 at 17:00 Levofloxacin/ Dextrose 150 ml @ 100 mls/hr Q24H IV ; Start 08/30/16 at 13:00; Status UNV Potassium Chloride (Klor-Con) 40 meq 1X ONCE PO ; Start 08/30/16 at 14:00; Stop 08/30/16 at 14:01; Status DC Vancomycin HCl 1.75 gm/Sodium Chloride 500 ml @ 250 mls/hr Q8H IV Last administered on 09/01/16 08:17; Start 08/31/16 at 08:00; Stop 09/01/16 at 14:39 ; Status DC Aztreonam 1 gm/ Sodium Chloride 50 ml @ 100 mls/hr Q8H IV Last administered on 09/02/16 06:30; Start 08/30/16 at 15:00 Enoxaparin Sodium (Lovenox 60mg Syringe) 60 mg Q12HR SQ Last administered on 09:28; Start 08/31/16 at 09:00 Levofloxacin/ Dextrose (Levaquin Per Pharmacy) 1 each PRN DAILY PRN MC SEE COMMENTS; Start 08/31/16 at 11:30; Status UNV Potassium Chloride (Klor-Con) 40 meq 1X ONCE PO Last administered on 12:46; Start 08/31/16 at 11:45; Stop 08/31/16 at 11:51; Status DC Levofloxacin/ Dextrose 150 ml @ 100 mls/hr Q24H IV Last administered on 17:24; Start 08/31/16 at 17:00 Linezolid 300 ml @ 300 mls/hr Q12HR IV Last administered on 09/02/16 09:28; Start 09/01/16 at 21:00 Insulin Detemir (Levemir) 70 units QHS SQ ; Start 09/02/16 at 21:00 Furosemide (Lasix) 40 mg 1X ONCE IVP Last administered on 09/02/16t 09:28; Start 09/02/16 at 09:30; Stop 09/02/16 at 09:31; Status DC Ibuprofen (Motrin) 600 mg PRN Q6HRS PRN PO INFLAMMATION; Start 09/02/16 at 09: 00 Active Scripts Active Reported Geodon (Ziprasidone Hcl) 40 Mg Capsule 1 Cap PO BID Trazodone Hcl 50 Mg Tablet 1 Tab PO QHS Janumet 50-1,000 Mg Tablet (Sitagliptin Phos/Metformin Hcl) 1 Each Tablet 1 Tab PO BID Propranolol Hcl 10 Mg Tablet 1 Tab PO BID Novolog (Insulin Aspart) 100 Unit/1 Ml Cartridge 20 Unit SQ TIDBFRMEAL Lantus Solostar (Insulin Glargine,Hum.rec.anlog) 100 Unit/1 Ml Insuln.pen 76 Unit SQ QHS Hydrocodone-Apap 5-325 (Hydrocodone Bit/Acetaminophen) 1 Each Tablet 1 Tab PO PRN Q6HRS PRN Doxycycline Hyclate 100 Mg Capsule 1 Cap PO BID Divalproex Sodium Er (Divalproex Sodium) 500 Mg Tab.er.24h 2,000 Mg PO DAILY Bupropion Xl (Bupropion Hcl) 300 Mg Tab.er.24h 1 Tab PO DAILYWBKFT Benazepril Hcl 40 Mg Tablet 1 Tab PO DAILY Atorvastatin Calcium 20 Mg Tablet 1 Tab PO DAILY Vitals/I & O Vital Sign - Last 24 Hours 09/01/16 09/01/16 09/01/16 09/01/16 16:00 16:27 18:51 20:04 Temp 99.1 99.1 Pulse 77 Resp 20 B/P (MAP) 181/94 (123) Pulse Ox 95 92 93 O2 Delivery Nasal Cannula High Flow Nasal Cannula High Flow Nasal Cannula Nasal Cannula O2 Flow Rate 12.0 10.0 10.0 12.0 09/01/16 09/01/16 09/01/16 09/01/16 20:07 21:23 21:24 22:24 Temp 97.9 97.9 Pulse 86 91 Resp 20 27 24 B/P (MAP) 151/95 (113) 151/95 Pulse Ox 92 92 92 O2 Delivery High Flow Nasal Cannula High Flow Nasal Cannula High Flow Nasal Cannula O2 Flow Rate 12.0 12.0 12.0 09/02/16 09/02/16 09/02/16 09/02/16 00:00 00:00 02:34 04:00 Temp 98.2 98.2 Pulse 83 72 Resp 19 18 B/P (MAP) 151/85 (107) 164/89 (114) Pulse Ox 92 95 98 O2 Delivery BiPAP/CPAP BiPAP/CPAP BiPAP/CPAP O2 Flow Rate 10.0 10.0 09/02/16 09/02/16 09/02/16 09/02/16 04:00 05:10 07:50 09:14 Pulse 86 Resp 26 B/P (MAP) 172/86 (114) Pulse Ox 94 95 96 O2 Delivery BiPAP/CPAP Nasal Cannula High Flow Nasal Cannula O2 Flow Rate 10.0 15.0 15.0 09/02/16 09/02/16 09/02/16 09:27 09:28 12:00 Pulse 92 92 B/P (MAP) 172/86 172/86 O2 Delivery High Flow Nasal Cannula O2 Flow Rate 15.0 Intake and Output 09/01/16 09/01/16 09/02/16 15:00 23:00 07:00 Intake Total 1200 ml 910 ml 969 ml Output Total 400 ml 725 ml 0 ml Balance 800 ml 185 ml 969 ml MARRY WOODS MD Sep 02, 2016 13:01
--- NOTE | 2016-09-02 13:19 | PDOC ---
PULMONARY PROGRESS NOTES Subjective PT WAS BACK ON BIPAP LAST NELLA SOME DESATURATIONS Vitals Vital Signs Date Time Temp Pulse Resp B/P (MAP) Pulse Ox O2 Delivery O2 Flow Rate FiO2 09/02/16 12:00 High Flow Nasal Cannula 15.0 09/02/16 09:28 92 172/86 09/02/16 09:14 96 09/02/16 07:50 26 09/02/16 00:00 98.2 98.2 ROS: No Nausea, No Abdominal Pain, No Increase Cough General: Alert HEENT: Other (nc at perrl, shallow oropharynx, nose clear, neck...no lap, thyromegaly) Lungs: Clear Cardiovascular: S1, S2 Abdomen: Soft, Non-tender, Other (no mass) Neuro Exam: Alert Extremities: Other (DECREASE EDEMA) Skin: Warm Labs Laboratory Tests Test 08/31/16 17:27 08/31/16 21:26 09/01/16 05:30 09/01/16 12:14 Glucose (Fingerstick) 130 mg/dL (70-99) 113 mg/dL (70-99) 145 mg/dL (70-99) White Blood Count 11.4 x10^3/uL (4.0-11.0) Red Blood Count 3.87 x10^6/uL (4.30-5.70) Hemoglobin 13.6 g/dL (13.0-17.5) Hematocrit 38.2 % (39.0-53.0) Mean Corpuscular Volume 99 fL (79-100) Mean Corpuscular Hemoglobin 35 pg (25-35) Mean Corpuscular Hemoglobin Concent 36 g/dL (31-37) Red Cell Distribution Width 13.3 % (11.5-14.5) Platelet Count 189 x10^3/uL (140-400) Neutrophils (%) (Auto) 57 % (31-73) Lymphocytes (%) (Auto) 28 % (24-48) Monocytes (%) (Auto) 13 % (0-9) Eosinophils (%) (Auto) 3 % (0-3) Basophils (%) (Auto) 1 % (0-3) Neutrophils # (Auto) 6.5 x10^3uL (1.8-7.7) Lymphocytes # (Auto) 3.2 x10^3/uL (1.0-4.8) Monocytes # (Auto) 1.4 x10^3/uL (0.0-1.1) Eosinophils # (Auto) 0.3 x10^3/uL (0.0-0.7) Basophils # (Auto) 0.1 x10^3/uL (0.0-0.2) Sodium Level 144 mmol/L (136-145) Potassium Level 3.5 mmol/L (3.5-5.1) Chloride Level 106 mmol/L (98-107) Carbon Dioxide Level 29 mmol/L (21-32) Anion Gap 9 (6-14) Blood Urea Nitrogen 13 mg/dL (8-26) Creatinine 0.9 mg/dL (0.7-1.3) Estimated GFR (Cockcroft-Gault) 91.7 Glucose Level 91 mg/dL (70-99) Calcium Level 8.2 mg/dL (8.5-10.1) Test 09/01/16 17:21 09/01/16 21:21 09/02/16 04:45 09/02/16 08:10 Glucose (Fingerstick) 117 mg/dL (70-99) 136 mg/dL (70-99) Sodium Level 145 mmol/L (136-145) Potassium Level 3.5 mmol/L (3.5-5.1) Chloride Level 105 mmol/L (98-107) Carbon Dioxide Level 30 mmol/L (21-32) Anion Gap 10 (6-14) Blood Urea Nitrogen 13 mg/dL (8-26) Creatinine 0.9 mg/dL (0.7-1.3) Estimated GFR (Cockcroft-Gault) 91.7 Glucose Level 64 mg/dL (70-99) Calcium Level 8.1 mg/dL (8.5-10.1) White Blood Count 13.4 x10^3/uL (4.0-11.0) Red Blood Count 3.90 x10^6/uL (4.30-5.70) Hemoglobin 13.5 g/dL (13.0-17.5) Hematocrit 39.4 % (39.0-53.0) Mean Corpuscular Volume 101 fL (79-100) Mean Corpuscular Hemoglobin 35 pg (25-35) Mean Corpuscular Hemoglobin Concent 34 g/dL (31-37) Red Cell Distribution Width 13.0 % (11.5-14.5) Platelet Count 203 x10^3/uL (140-400) Neutrophils (%) (Auto) 61 % (31-73) Lymphocytes (%) (Auto) 24 % (24-48) Monocytes (%) (Auto) 11 % (0-9) Eosinophils (%) (Auto) 3 % (0-3) Basophils (%) (Auto) 1 % (0-3) Neutrophils # (Auto) 8.2 x10^3uL (1.8-7.7) Lymphocytes # (Auto) 3.3 x10^3/uL (1.0-4.8) Monocytes # (Auto) 1.5 x10^3/uL (0.0-1.1) Eosinophils # (Auto) 0.3 x10^3/uL (0.0-0.7) Basophils # (Auto) 0.2 x10^3/uL (0.0-0.2) Test 09/02/16 08:13 09/02/16 11:27 Glucose (Fingerstick) 78 mg/dL (70-99) 177 mg/dL (70-99) Laboratory Tests Test 09/01/16 17:21 09/01/16 21:21 09/02/16 04:45 09/02/16 08:10 Glucose (Fingerstick) 117 mg/dL (70-99) 136 mg/dL (70-99) Sodium Level 145 mmol/L (136-145) Potassium Level 3.5 mmol/L (3.5-5.1) Chloride Level 105 mmol/L (98-107) Carbon Dioxide Level 30 mmol/L (21-32) Anion Gap 10 (6-14) Blood Urea Nitrogen 13 mg/dL (8-26) Creatinine 0.9 mg/dL (0.7-1.3) Estimated GFR (Cockcroft-Gault) 91.7 Glucose Level 64 mg/dL (70-99) Calcium Level 8.1 mg/dL (8.5-10.1) White Blood Count 13.4 x10^3/uL (4.0-11.0) Red Blood Count 3.90 x10^6/uL (4.30-5.70) Hemoglobin 13.5 g/dL (13.0-17.5) Hematocrit 39.4 % (39.0-53.0) Mean Corpuscular Volume 101 fL (79-100) Mean Corpuscular Hemoglobin 35 pg (25-35) Mean Corpuscular Hemoglobin Concent 34 g/dL (31-37) Red Cell Distribution Width 13.0 % (11.5-14.5) Platelet Count 203 x10^3/uL (140-400) Neutrophils (%) (Auto) 61 % (31-73) Lymphocytes (%) (Auto) 24 % (24-48) Monocytes (%) (Auto) 11 % (0-9) Eosinophils (%) (Auto) 3 % (0-3) Basophils (%) (Auto) 1 % (0-3) Neutrophils # (Auto) 8.2 x10^3uL (1.8-7.7) Lymphocytes # (Auto) 3.3 x10^3/uL (1.0-4.8) Monocytes # (Auto) 1.5 x10^3/uL (0.0-1.1) Eosinophils # (Auto) 0.3 x10^3/uL (0.0-0.7) Basophils # (Auto) 0.2 x10^3/uL (0.0-0.2) Test 09/02/16 08:13 09/02/16 11:27 Glucose (Fingerstick) 78 mg/dL (70-99) 177 mg/dL (70-99) Medications Active Scripts Medications Dose Route/Sig Max Daily Dose Days Date Category Geodon (Ziprasidone Hcl) 40 Mg Capsule 1 Cap PO BID 08/29/16 Reported Trazodone Hcl 50 Mg Tablet 1 Tab PO QHS 08/29/16 Reported Janumet 50-1,000 Mg Tablet (Sitagliptin Phos/Metformin Hcl) 1 Each Tablet 1 Tab PO BID 08/29/16 Reported Propranolol Hcl 10 Mg Tablet 1 Tab PO BID 08/29/16 Reported Novolog (Insulin Aspart) 100 Unit/1 Ml Cartridge 20 Unit SQ TIDBFRMEAL 08/29/16 Reported Lantus Solostar (Insulin Glargine,Hum.rec.anlog) 100 Unit/1 Ml Insuln.pen 76 Unit SQ QHS 08/29/16 Reported Hydrocodone-Apap 5-325 (Hydrocodone Bit/Acetaminophen) 1 Each Tablet 1 Tab PO PRN Q6HRS PRN 08/29/16 Reported Doxycycline Hyclate 100 Mg Capsule 1 Cap PO BID 08/29/16 Reported Divalproex Sodium Er (Divalproex Sodium) 500 Mg Tab.er.24h 2,000 Mg PO DAILY 08/29/16 Reported Bupropion Xl (Bupropion Hcl) 300 Mg Tab.er.24h 1 Tab PO DAILYWBKFT 08/29/16 Reported Benazepril Hcl 40 Mg Tablet 1 Tab PO DAILY 08/29/16 Reported Atorvastatin Calcium 20 Mg Tablet 1 Tab PO DAILY 08/29/16 Reported Impression . 1. Acute hypoxemic respiratory failure, multifactorial 2. Abnormal chest x-ray. 3. Ex-smoker ?chronic obstructive pulmonary disease. 4. Obstructive sleep apnea-hypopnea syndrome. 5. Hypertension. 6. Diabetes mellitus. 7. Obesity. 8. Cellulitis. 9. CTA with possible thrombus, venous Doppler lower ext negative Plan . 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
--- NOTE | 2016-09-02 16:36 | RAD ---
Single view of of the Chest 09/02/2016 3:22 PM Indication: CHF Comparison: CT of the chest 08/30/2016, Findings: Persistent patchy infiltrate is seen within the left upper lobe and to a lesser degree the left lower lobe. More mild right-sided infiltrates are also similar. No pneumothorax is identified. A definitive pleural effusion is not seen. Heart size is stable. No acute osseous changes are identified. Impression: Patchy bilateral infiltrates, similar comparison study most prominent in left upper lobe. Recommend radiographic follow-up to ensure complete and exclude underlying pathology including neoplasm.
[2016-09-02] MEDS: hydrALAZINE 20 MG/ML VIAL. IVP PRN ×2 (17:16→19:25)
[2016-09-02] MEDS: ACETAMINOPHEN 325 MG TABLET. PO PRN (19:48)
[2016-09-02] MEDS ORDERED: INSULIN DETEMIR 300 UNITS/3 ML INSULN.PEN. SQ SCH (21:00)
[2016-09-02] MEDS: IBUPROFEN 600 MG TABLET. PO SCH (21:11)
[2016-09-02] MEDS: traZODone 50 MG TABLET. PO SCH (21:11)
[2016-09-02] MEDS: DIVALPROEX EXTENDED RELEASE 500 MG TAB.ER.24H. PO SCH (21:11)
[2016-09-02] MEDS: ATORVASTATIN CALCIUM 20 MG TABLET PO SCH (21:11)
[2016-09-03] VITALS: BP 120/66
[2016-09-03 04:31] VITALS: BP 140/82
[2016-09-03 06:10] LABS: BASO # 0.1 x10^3/uL (0.0-0.2); BASO % 1 % (0-3); CALCIUM 8.4 mg/dL (8.5-10.1); CREATININE 0.9 mg/dL (0.7-1.3); EOS % 2 % (0-3); GFR 91.7; HEMATOCRIT 38.7 % (39.0-53.0); HEMOGLOBIN 13.4 g/dL (13.0-17.5); LYMPH # 3.1 x10^3/uL (1.0-4.8); LYMPH % 27 % (24-48); MEAN CORPUSCULAR HEMOGLOBIN 35 pg (25-35); MEAN CORPUSCULAR HGB CONC 35 g/dL (31-37); MEAN CORPUSCULAR VOLUME 99 fL (79-100); MONO % 9 % (0-9); NEUT % 61 % (31-73); PLATELET COUNT 192 x10^3/uL (140-400); POTASSIUM 3.2 mmol/L (3.5-5.1); RED BLOOD COUNT 3.89 x10^6/uL (4.30-5.70); RED CELL DISTRIBUTION WIDTH 13.1 % (11.5-14.5); WHITE BLOOD COUNT 11.5 x10^3/uL (4.0-11.0)
[2016-09-03] MEDS: AZTREONAM 1 GM in IV NORMAL SALINE 50ML 50 ML IV SCH (06:40)
--- NOTE | 2016-09-03 06:45 | CONS ---
DATE OF CONSULTATION: 09/02/2016 REQUESTING PHYSICIAN: Dr. Rogel. REASON FOR CONSULTATION: Left wrist pain. HISTORY OF PRESENT ILLNESS: The patient is a 46-year-old male who was admitted for shortness of breath immediately following discharge from a separate hospital for abdominal cellulitis. Apparently in the previous hospital visit, he had received significant amount of IV fluids and responded fairly well to some diuresis, but is still in the Intensive Care Unit at this time, mainly due to his pulmonary issues. He indicates that he has had left wrist pain and swelling and is unaware of any particular injury, but just has difficulty moving the left wrist with pain, swelling and difficulty ____. PAST MEDICAL HISTORY: Significant for type 2 diabetes mellitus, morbid obesity, hypertension, depression. FAMILY HISTORY: Significant for hypertension. PAST SURGICAL HISTORY: Significant for an abdominoplasty. SOCIAL HISTORY: He denies smoking, alcohol or drug use. REVIEW OF SYSTEMS: Now shortness of breath mainly resolving, significant also for the left wrist pain and swelling. He denies any radiating pain, numbness or tingling in the extremities, focal weakness, any type of trauma, particularly any type of penetrating trauma or scratch to the skin, and no joint swelling, injury, or instability. MEDICATIONS: List is reviewed. ALLERGIES: INCLUDE PENICILLIN. PHYSICAL EXAMINATION: Examination of the left wrist reveals some swelling over the left wrist and dorsum of the left hand. He has some stiffness in terms of motion of his fingers in flexion and extension, although flexor profundus and superficialis tendons are all intact. He has no evidence of tenosynovitis present. He has diffuse tenderness over the radial aspect mainly of the left wrist, mild limitation on full flexion and extension of the wrist, but he is able to actively move it and pronation and supination is mildly uncomfortable on extremes, but has good functional range of motion. He has normal examination of the contralateral right wrist, bilateral shoulders and elbows and overall intact motor function, distal pulses, sensation, reflexes, skin in both upper extremities throughout. IMAGING: X-rays of the left wrist show some irregularity present at the distal pole of the scaphoid, however, does not appear to be a fracture. If anything, I think it is more any erosive process with time. Radiology report indicates a calcific density with possible soft tissue tophus if in the setting of crystalline arthropathy and some mild arthritis and soft tissue swelling. IMPRESSION: Left wrist swelling, possible contusion without fracture or alternatively exacerbation of an inflammatory arthritic process. TREATMENT PLAN: Overall, I would recommend symptomatic management for his wrist. He really does not need splinting or any other protection other than symptomatic limitation of activities. I do not feel that there is any structural issue with the wrist and he could be treated for any inflammatory processes indicated. With his other issues of cellulitis, I would be very reluctant to consider aspiration at the wrist joint unless his symptoms are quite severe as that may have a possibility of inoculating the wrist with infection as it does not appear to have any type of infectious concern at present time. Infectious Disease agrees with this assessment as well and I will be happy to follow along on an as needed basis from an orthopedic standpoint. BRENT ENRIQUEZ MD DR: JAZZY/ely JOB#: [id number] / [id number]
[2016-09-03] MEDS: IPRATRPIUM/ALBUTEROL 0.5/2.5MG 3 ML NEBU. NEB SCH ×2 (07:29→11:41)
[2016-09-03] MEDS: BUDESONIDE 0.5 MG/2 ML NEBU. NEB SCH (07:29)
[2016-09-03] MEDS: INSULIN ASPART 300 UNITS/3 ML INSULN.PEN SQ SCH ×3 (07:30→12:00)
--- NOTE | 2016-09-03 07:46 | RAD ---
Portable chest, 09/03/2016: History: Respiratory distress Comparison is made to yesterday's study. The heart size is normal. Some of the patchy pulmonary infiltrates have improved, particularly in the left upper lobe and medial right base. Left infrahilar infiltrate appears to have worsened slightly. There is no evidence of pleural fluid or pneumothorax. IMPRESSION: Slight interval worsening of the left infrahilar infiltrate, while some of the other patchy pulmonary infiltrates have improved. The findings again suggest pneumonia.
[2016-09-03 08:00] VITALS: BP 141/86
[2016-09-03] MEDS ORDERED: POTASSIUM CHLORIDE 20 MEQ TABLET.ER. PO ONE (08:00)
[2016-09-03] MEDS: buPROPion XL 150 MG TAB.ER.24H. PO SCH (08:58)
[2016-09-03] MEDS: LISINOPRIL 40 MG TABLET. PO SCH (08:59)
[2016-09-03] MEDS: ZIPRASIDONE 20 MG CAPSULE PO SCH (09:00)
[2016-09-03] MEDS: PANTOPRAZOLE 40 MG TABLET.DR. PO SCH (09:00)
[2016-09-03] MEDS: PROPRANOLOL 10 MG TABLET. PO SCH (09:00)
[2016-09-03] MEDS: IBUPROFEN 600 MG TABLET. PO SCH (09:00)
[2016-09-03] MEDS: LINAGLIPTIN 5 MG TABLET PO SCH (09:01)
--- NOTE | 2016-09-03 09:31 | PDOC ---
Infectious Disease Note Subjective Subjective Breathing comfortably, less O2 demand Left wrist/hand swelling, pain and ROM better No fever last 48 hours ROS ROS GEN: Denies chills, sweats CV: Denies chest pain RESP: Denies shortness of air, cough GI: Denies n/v/d Vital Sign Vital Signs Vital Signs Date Time Temp Pulse Resp B/P (MAP) Pulse Ox O2 Delivery O2 Flow Rate FiO2 09/03/16 09:00 80 141/86 09/03/16 07:33 99 High Flow Nasal Cannula 10.0 09/03/16 04:31 17 09/02/16 19:14 97.8 97.8 Physical Exam PHYSICAL EXAM GENERAL: Sitting in the chair, NAD HEENT: Oral mucosa dry NECK: Supple. LUNGS: Improved aeration HEART: Normal S1, S2. ABDOMEN: Obese, bowel sounds are present, soft and nontender. EXTREMITIES: Less bilateral lower extremity edema. No cyanosis. Left wrist/ hand less swelling and increase ROM SKIN: Without rash. Warm to touch. NEUROLOGIC: Alert and oriented x 3. Moves all extremities. Labs Lab Laboratory Tests Test 09/02/16 11:27 09/02/16 16:58 09/02/16 21:07 09/03/16 05:45 Glucose (Fingerstick) 177 mg/dL (70-99) 65 mg/dL (70-99) 117 mg/dL (70-99) White Blood Count 11.5 x10^3/uL (4.0-11.0) Red Blood Count 3.89 x10^6/uL (4.30-5.70) Hemoglobin 13.4 g/dL (13.0-17.5) Hematocrit 38.7 % (39.0-53.0) Mean Corpuscular Volume 99 fL (79-100) Mean Corpuscular Hemoglobin 35 pg (25-35) Mean Corpuscular Hemoglobin Concent 35 g/dL (31-37) Red Cell Distribution Width 13.1 % (11.5-14.5) Platelet Count 192 x10^3/uL (140-400) Neutrophils (%) (Auto) 61 % (31-73) Lymphocytes (%) (Auto) 27 % (24-48) Monocytes (%) (Auto) 9 % (0-9) Eosinophils (%) (Auto) 2 % (0-3) Basophils (%) (Auto) 1 % (0-3) Neutrophils # (Auto) 7.0 x10^3uL (1.8-7.7) Lymphocytes # (Auto) 3.1 x10^3/uL (1.0-4.8) Monocytes # (Auto) 1.0 x10^3/uL (0.0-1.1) Eosinophils # (Auto) 0.3 x10^3/uL (0.0-0.7) Basophils # (Auto) 0.1 x10^3/uL (0.0-0.2) Sodium Level 142 mmol/L (136-145) Potassium Level 3.2 mmol/L (3.5-5.1) Chloride Level 103 mmol/L (98-107) Carbon Dioxide Level 30 mmol/L (21-32) Anion Gap 9 (6-14) Blood Urea Nitrogen 13 mg/dL (8-26) Creatinine 0.9 mg/dL (0.7-1.3) Estimated GFR (Cockcroft-Gault) 91.7 Glucose Level 92 mg/dL (70-99) Uric Acid 7.5 mg/dL (3.5-7.2) Calcium Level 8.4 mg/dL (8.5-10.1) Test 09/03/16 08:57 Glucose (Fingerstick) 81 mg/dL (70-99) Portable chest, 09/03/2016: Comparison is made to yesterday's study. The heart size is normal. Some of the patchy pulmonary infiltrates have improved, particularly in the left upper lobe and medial right base. Left infrahilar infiltrate appears to have worsened slightly. There is no evidence of pleural fluid or pneumothorax. IMPRESSION: Slight interval worsening of the left infrahilar infiltrate, while some of the other patchy pulmonary infiltrates have improved. The findings again suggest pneumonia. Micro BLOOD CULTURE Preliminary NO GROWTH AFTER 4 DAYS Objective Assessment HCAP Leukocytosis Cellulitis of abdominal wall, resolving PCN allergy, swelling of the throat with amoxicillin. No recall of tolerating cephalosporins. Left wrist/hand pain and swelling. ? gout/arthritis flare. uric acid 7.5 Acute HF h/o MRSA SSTI Morbid obesity Plan Plan of Care Zyvox, Aztreonam and Levaquin Culture are negative so far. Monitor WBC, renal function and temp Supportive care Attending Co-Sign The patient was seen and interviewed as well as examined at the bedside. The chart was reviewed. The case was discussed. Agree with the plan of care. start scaling down STEFFANY LUCIO APRN Sep 03, 2016 09:31 MAYO CASTRO MD Sep 03, 2016 12:32
[2016-09-03] MEDS ORDERED: INSULIN ASPART 300 UNITS/3 ML INSULN.PEN SQ SCH (11:30)
--- NOTE | 2016-09-03 11:59 | PDOC ---
PROGRESS NOTES Chief Complaint Chief Complaint Complaint: Shortness of breath Assessment and plan Acute hypoxic respiratory failure multifactorial. HAP, obesity hypoventilation left side Abdominal wall cellulitis: Resolving Leukocytosis Morbid obesity Hyperglycemia with type 2 diabetes mellitus insulin-dependent left wrist pain, with arthritis? gout? pseudogout? Plan Despite diuresis patient is hypoxic at rest, requiring nonrebreather initial CT of the chest ruled out PE however questionable pneumonia. Patient did not have any fevers, blood cultures no growth so far. His abdominal wall cellulitis is resolving Continue BiPAP as needed at night, high flow at 12-15 L during daytime lasix 40mg iv x1 09/02 fu with ID, on levaquin, azetreonam and vanco ortho consult for left wrist pain, not done, check UA slightly high, add NSAIDS DEcrese levemir to 65u qhs, aspart 15u tid, SSI fu with pulm, ID. stable to transfer out of ICU, STILL on 6L high Flow O2, hope cont drop and need 6 min walk before dc. still on iv abx with ID. History of Present Illness History of Present Illness Shortness of breath is better,bipap at night, high flow at 12-15L now down to 6L 09/03 No fever No chest pain CTA showed HAC, neg PE, DVT neg on US Echo EF 60% left wrist pain, denies gout before, better now hypoglycemia one time Vitals Vitals Vital Signs Date Time Temp Pulse Resp B/P (MAP) Pulse Ox O2 Delivery O2 Flow Rate FiO2 09/03/16 11:43 High Flow Nasal Cannula 2.0 09/03/16 09:00 80 141/86 09/03/16 08:00 97.6 14 96 97.6 Physical Exam General: Alert, Oriented X3 Heart: Regular rate, Normal S1, Normal S2 Lungs: Clear Abdomen: Normal bowel sounds, Other (edema +2) Extremities: No clubbing, Other (left wrist mild swelling) Skin: Other (decreased redness on the abdomen) Labs LABS Laboratory Tests Test 09/02/16 16:58 09/02/16 21:07 09/03/16 05:45 09/03/16 08:57 Glucose (Fingerstick) 65 mg/dL (70-99) 117 mg/dL (70-99) 81 mg/dL (70-99) White Blood Count 11.5 x10^3/uL (4.0-11.0) Red Blood Count 3.89 x10^6/uL (4.30-5.70) Hemoglobin 13.4 g/dL (13.0-17.5) Hematocrit 38.7 % (39.0-53.0) Mean Corpuscular Volume 99 fL (79-100) Mean Corpuscular Hemoglobin 35 pg (25-35) Mean Corpuscular Hemoglobin Concent 35 g/dL (31-37) Red Cell Distribution Width 13.1 % (11.5-14.5) Platelet Count 192 x10^3/uL (140-400) Neutrophils (%) (Auto) 61 % (31-73) Lymphocytes (%) (Auto) 27 % (24-48) Monocytes (%) (Auto) 9 % (0-9) Eosinophils (%) (Auto) 2 % (0-3) Basophils (%) (Auto) 1 % (0-3) Neutrophils # (Auto) 7.0 x10^3uL (1.8-7.7) Lymphocytes # (Auto) 3.1 x10^3/uL (1.0-4.8) Monocytes # (Auto) 1.0 x10^3/uL (0.0-1.1) Eosinophils # (Auto) 0.3 x10^3/uL (0.0-0.7) Basophils # (Auto) 0.1 x10^3/uL (0.0-0.2) Sodium Level 142 mmol/L (136-145) Potassium Level 3.2 mmol/L (3.5-5.1) Chloride Level 103 mmol/L (98-107) Carbon Dioxide Level 30 mmol/L (21-32) Anion Gap 9 (6-14) Blood Urea Nitrogen 13 mg/dL (8-26) Creatinine 0.9 mg/dL (0.7-1.3) Estimated GFR (Cockcroft-Gault) 91.7 Glucose Level 92 mg/dL (70-99) Uric Acid 7.5 mg/dL (3.5-7.2) Calcium Level 8.4 mg/dL (8.5-10.1) Test 09/03/16 11:48 Glucose (Fingerstick) 141 mg/dL (70-99) Review of Systems Review of Systems no fever, chills, chest pain Assessment and Plan Assessmemt and Plan Problems Medical Problems: (1) Cellulitis Status: Acute (2) Congestive heart failure Status: Acute (3) Hypoxia Status: Acute (4) Respiratory insufficiency Status: Acute Problems: Comment Review of Relevant I have reviewed the following items devin (where applicable) has been applied. Labs Laboratory Tests Test 09/01/16 12:14 09/01/16 17:21 09/01/16 21:21 09/02/16 04:45 Glucose (Fingerstick) 145 mg/dL (70-99) 117 mg/dL (70-99) 136 mg/dL (70-99) Sodium Level 145 mmol/L (136-145) Potassium Level 3.5 mmol/L (3.5-5.1) Chloride Level 105 mmol/L (98-107) Carbon Dioxide Level 30 mmol/L (21-32) Anion Gap 10 (6-14) Blood Urea Nitrogen 13 mg/dL (8-26) Creatinine 0.9 mg/dL (0.7-1.3) Estimated GFR (Cockcroft-Gault) 91.7 Glucose Level 64 mg/dL (70-99) Calcium Level 8.1 mg/dL (8.5-10.1) Test 09/02/16 08:10 09/02/16 08:13 09/02/16 11:27 09/02/16 16:58 White Blood Count 13.4 x10^3/uL (4.0-11.0) Red Blood Count 3.90 x10^6/uL (4.30-5.70) Hemoglobin 13.5 g/dL (13.0-17.5) Hematocrit 39.4 % (39.0-53.0) Mean Corpuscular Volume 101 fL (79-100) Mean Corpuscular Hemoglobin 35 pg (25-35) Mean Corpuscular Hemoglobin Concent 34 g/dL (31-37) Red Cell Distribution Width 13.0 % (11.5-14.5) Platelet Count 203 x10^3/uL (140-400) Neutrophils (%) (Auto) 61 % (31-73) Lymphocytes (%) (Auto) 24 % (24-48) Monocytes (%) (Auto) 11 % (0-9) Eosinophils (%) (Auto) 3 % (0-3) Basophils (%) (Auto) 1 % (0-3) Neutrophils # (Auto) 8.2 x10^3uL (1.8-7.7) Lymphocytes # (Auto) 3.3 x10^3/uL (1.0-4.8) Monocytes # (Auto) 1.5 x10^3/uL (0.0-1.1) Eosinophils # (Auto) 0.3 x10^3/uL (0.0-0.7) Basophils # (Auto) 0.2 x10^3/uL (0.0-0.2) Glucose (Fingerstick) 78 mg/dL (70-99) 177 mg/dL (70-99) 65 mg/dL (70-99) Test 09/02/16 21:07 09/03/16 05:45 09/03/16 08:57 09/03/16 11:48 Glucose (Fingerstick) 117 mg/dL (70-99) 81 mg/dL (70-99) 141 mg/dL (70-99) White Blood Count 11.5 x10^3/uL (4.0-11.0) Red Blood Count 3.89 x10^6/uL (4.30-5.70) Hemoglobin 13.4 g/dL (13.0-17.5) Hematocrit 38.7 % (39.0-53.0) Mean Corpuscular Volume 99 fL (79-100) Mean Corpuscular Hemoglobin 35 pg (25-35) Mean Corpuscular Hemoglobin Concent 35 g/dL (31-37) Red Cell Distribution Width 13.1 % (11.5-14.5) Platelet Count 192 x10^3/uL (140-400) Neutrophils (%) (Auto) 61 % (31-73) Lymphocytes (%) (Auto) 27 % (24-48) Monocytes (%) (Auto) 9 % (0-9) Eosinophils (%) (Auto) 2 % (0-3) Basophils (%) (Auto) 1 % (0-3) Neutrophils # (Auto) 7.0 x10^3uL (1.8-7.7) Lymphocytes # (Auto) 3.1 x10^3/uL (1.0-4.8) Monocytes # (Auto) 1.0 x10^3/uL (0.0-1.1) Eosinophils # (Auto) 0.3 x10^3/uL (0.0-0.7) Basophils # (Auto) 0.1 x10^3/uL (0.0-0.2) Sodium Level 142 mmol/L (136-145) Potassium Level 3.2 mmol/L (3.5-5.1) Chloride Level 103 mmol/L (98-107) Carbon Dioxide Level 30 mmol/L (21-32) Anion Gap 9 (6-14) Blood Urea Nitrogen 13 mg/dL (8-26) Creatinine 0.9 mg/dL (0.7-1.3) Estimated GFR (Cockcroft-Gault) 91.7 Glucose Level 92 mg/dL (70-99) Uric Acid 7.5 mg/dL (3.5-7.2) Calcium Level 8.4 mg/dL (8.5-10.1) Laboratory Tests Test 09/02/16 16:58 09/02/16 21:07 09/03/16 05:45 09/03/16 08:57 Glucose (Fingerstick) 65 mg/dL (70-99) 117 mg/dL (70-99) 81 mg/dL (70-99) White Blood Count 11.5 x10^3/uL (4.0-11.0) Red Blood Count 3.89 x10^6/uL (4.30-5.70) Hemoglobin 13.4 g/dL (13.0-17.5) Hematocrit 38.7 % (39.0-53.0) Mean Corpuscular Volume 99 fL (79-100) Mean Corpuscular Hemoglobin 35 pg (25-35) Mean Corpuscular Hemoglobin Concent 35 g/dL (31-37) Red Cell Distribution Width 13.1 % (11.5-14.5) Platelet Count 192 x10^3/uL (140-400) Neutrophils (%) (Auto) 61 % (31-73) Lymphocytes (%) (Auto) 27 % (24-48) Monocytes (%) (Auto) 9 % (0-9) Eosinophils (%) (Auto) 2 % (0-3) Basophils (%) (Auto) 1 % (0-3) Neutrophils # (Auto) 7.0 x10^3uL (1.8-7.7) Lymphocytes # (Auto) 3.1 x10^3/uL (1.0-4.8) Monocytes # (Auto) 1.0 x10^3/uL (0.0-1.1) Eosinophils # (Auto) 0.3 x10^3/uL (0.0-0.7) Basophils # (Auto) 0.1 x10^3/uL (0.0-0.2) Sodium Level 142 mmol/L (136-145) Potassium Level 3.2 mmol/L (3.5-5.1) Chloride Level 103 mmol/L (98-107) Carbon Dioxide Level 30 mmol/L (21-32) Anion Gap 9 (6-14) Blood Urea Nitrogen 13 mg/dL (8-26) Creatinine 0.9 mg/dL (0.7-1.3) Estimated GFR (Cockcroft-Gault) 91.7 Glucose Level 92 mg/dL (70-99) Uric Acid 7.5 mg/dL (3.5-7.2) Calcium Level 8.4 mg/dL (8.5-10.1) Test 09/03/16 11:48 Glucose (Fingerstick) 141 mg/dL (70-99) Microbiology 08/29/16 Blood Culture - Preliminary, Resulted NO GROWTH AFTER 4 DAYS 09/03/16 Gram Stain - Final, Complete Medications Current Medications Furosemide (Lasix) 80 mg 1X ONCE IVP Last administered on 08/29/16t 10:36; Start 08/29/16 at 10:15; Stop 08/29/16 at 10:31; Status DC Nitroglycerin (Nitrostat) 0.4 mg PRN Q5MIN PRN SL CHEST PAIN; Start 08/29/16 at 10:15 Vancomycin HCl 250 ml @ 250 mls/hr 1X ONCE IV ; Start 08/29/16 at 11:15; Stop 08/29/16 at 12:14; Status UNV Vancomycin HCl 2 gm/Sodium Chloride 500 ml @ 250 mls/hr 1X ONCE IV Last administered on 08/29/16 12:10; Start 08/29/16 at 11:30; Stop 08/29/16 at 13:29 ; Status DC Enoxaparin Sodium (Lovenox 40mg Syringe) 40 mg Q24H SQ ; Start 08/29/16 at 14:30 ; Stop 08/29/16 at 14:40; Status DC Acetaminophen (Tylenol) 325 mg PRN Q6HRS PRN PO MILD PAIN / TEMP Last administered on 09/02/16 19:48; Start 08/29/16 at 14:30 Acetaminophen/ Hydrocodone Bitart (Lortab 5/325) 1 tab PRN Q6HRS PRN PO MODERATE TO SEVERE PAIN; Start 08/29/16 at 14:30; Stop 08/29/16 at 15:31; Status DC Hydralazine HCl (Apresoline) 10 mg PRN Q4HRS PRN IVP ELEVATED BP, SEE COMMENTS Last administered on 09/02/16 19:25; Start 08/29/16 at 14:30 Ondansetron HCl (Zofran) 4 mg PRN Q8HRS PRN IV NAUSEA/VOMITING; Start 08/29/16 at 14:30 Albuterol Sulfate (Ventolin Neb Soln) 2.5 mg PRN Q4HRS PRN NEB SHORTNESS OF BREATH; Start 08/29/16 at 14:30 Enoxaparin Sodium (Lovenox 40mg Syringe) 40 mg Q12HR SQ Last administered on 21:06; Start 08/29/16 at 21:00; Stop 08/31/16 at 08:00; Status DC Furosemide (Lasix) 40 mg 1X ONCE IVP Last administered on 08/29/16 17:17; Start 08/29/16 at 18:00; Stop 08/29/16 at 18:01; Status DC Insulin Aspart (NovoLOG) 0-9 UNITS TIDWMEALS SQ Last administered on 09/02/16 12:14; Start 08/29/16 at 17:00 Dextrose (Dextrose 50%-Water Syringe) 12.5 gm PRN Q15MIN PRN IV SEE COMMENTS; Start 08/29/16 at 15:15 Atorvastatin Calcium (Lipitor) 20 mg QHS PO Last administered on 09/02/16 21: 11; Start 08/29/16 at 21:00 Divalproex Sodium (Depakote Er) 2,000 mg DAILY PO ; Start 08/30/16 at 09:00; Stop 08/30/16 at 09:11; Status DC Acetaminophen/ Hydrocodone Bitart (Lortab 5/325) 1 tab PRN Q6HRS PRN PO PAIN Last administered on 09/01/16 21:24; Start 08/29/16 at 15:30 Propranolol HCl (Inderal) 10 mg BID PO Last administered on 09/03/16 09:00; Start 08/29/16 at 21:00 Trazodone HCl (Desyrel) 50 mg QHS PO Last administered on 09/02/16 21:11; Start 08/29/16 at 21:00 Lisinopril (Prinivil) 40 mg DAILY PO Last administered on 09/03/16 08:59; Start 08/30/16 at 09:00 Bupropion HCl (Wellbutrin Xl) 300 mg DAILY PO Last administered on 09/03/16 08 :58; Start 08/30/16 at 09:00 Doxycycline Hyclate (Vibra-Tab) 100 mg BID PO Last administered on 08/31/16 08 :18; Start 08/29/16 at 21:00; Stop 08/31/16 at 11:35; Status DC Insulin Aspart (NovoLOG) 20 units TIDAC SQ Last administered on 09/02/16 12:13 ; Start 08/29/16 at 16:30; Stop 09/03/16 at 07:51; Status DC Insulin Detemir (Levemir) 76 units QHS SQ Last administered on 09/01/16 21:28 ; Start 08/29/16 at 21:00; Stop 09/02/16 at 09:01; Status DC Linagliptin (Tradjenta) 5 mg DAILY PO Last administered on 09/03/16 09:01; Start 08/30/16 at 09:00 Ziprasidone (Geodon) 40 mg BID PO Last administered on 09/03/16 09:00; Start 08/29/16 at 21:00 Metformin HCl (Glucophage) 1,000 mg BIDWMEALS PO Last administered on 08:23; Start 08/29/16 at 17:00; Stop 08/30/16 at 12:13; Status DC Metoclopramide HCl (Reglan) 10 mg 1X ONCE IV ; Start 08/29/16 at 15:45; Stop at 15:45; Status DC Sulfur Hexafluoride Microspheres (Lumason) 25 mg STK-MED ONCE IVP ; Start at 16:48; Stop 08/29/16 at 16:49; Status DC Albuterol/ Ipratropium (Duoneb) 3 ml RTQID NEB Last administered on 09/03/16 11:41; Start 08/29/16 at 20:00 Budesonide (Pulmicort) 0.5 mg RTBID NEB Last administered on 09/03/16 07:29; Start 08/29/16 at 20:00 Sulfur Hexafluoride Microspheres (Lumason) 25 mg STK-MED ONCE IVP ; Start at 18:57; Stop 08/29/16 at 18:58; Status Cancel Sulfur Hexafluoride Microspheres (Lumason) 25 mg STK-MED ONCE IVP ; Start at 15:00; Stop 08/29/16 at 18:59; Status DC Vancomycin HCl (Vanco Per Pharmacy) 1 each PRN DAILY PRN MC SEE COMMENTS Last administered on 09/01/16 09:15; Start 08/29/16 at 19:30; Stop 09/01/16 at 14:41 ; Status DC Vancomycin HCl 2 gm/Sodium Chloride 500 ml @ 250 mls/hr Q8H IV Last administered on 08/30/16 12:29; Start 08/29/16 at 20:00; Stop 08/30/16 at 19:59 ; Status DC Vancomycin HCl 1 each 1X ONCE MC Last administered on 08/30/16 11:30; Start 08/30/16 at 11:30; Stop 08/30/16 at 11:31; Status DC Potassium Chloride (Klor-Con) 80 meq 1X ONCE PO Last administered on 09:00; Start 08/30/16 at 08:45; Stop 08/30/16 at 08:55; Status DC Furosemide (Lasix) 40 mg 1X ONCE IVP Last administered on 08/30/16 08:59; Start 08/30/16 at 08:45; Stop 08/30/16 at 08:55; Status DC Divalproex Sodium (Depakote Er) 2,000 mg HS PO Last administered on 09/02/16 21:11; Start 08/30/16 at 21:00 Pantoprazole Sodium (Protonix) 40 mg 1X ONCE PO Last administered on 12:30; Start 08/30/16 at 10:15; Stop 08/30/16 at 10:17; Status DC Pantoprazole Sodium (Protonix) 40 mg DAILYAC PO Last administered on 09/03/16 09:00; Start 08/31/16 at 07:30 Iohexol (Omnipaque 300 Mg/ml) 75 ml 1X ONCE IV Last administered on 08/30/16 11:58; Start 08/30/16 at 12:00; Stop 08/30/16 at 12:01; Status DC Info (Do NOT chart on this entry -- for MONITORING) 1 each PRN DAILY PRN MC SEE COMMENTS; Start 08/30/16 at 11:45; Stop 09/01/16 at 11:44; Status DC Metformin HCl (Glucophage) 1,000 mg BIDWMEALS PO Last administered on 09:01; Start 09/01/16 at 17:00 Levofloxacin/ Dextrose 150 ml @ 100 mls/hr Q24H IV ; Start 08/30/16 at 13:00; Status UNV Potassium Chloride (Klor-Con) 40 meq 1X ONCE PO ; Start 08/30/16 at 14:00; Stop 08/30/16 at 14:01; Status DC Vancomycin HCl 1.75 gm/Sodium Chloride 500 ml @ 250 mls/hr Q8H IV Last administered on 09/01/16 08:17; Start 08/31/16 at 08:00; Stop 09/01/16 at 14:39 ; Status DC Aztreonam 1 gm/ Sodium Chloride 50 ml @ 100 mls/hr Q8H IV Last administered on 09/03/16 06:40; Start 08/30/16 at 15:00 Enoxaparin Sodium (Lovenox 60mg Syringe) 60 mg Q12HR SQ Last administered on 08:59; Start 08/31/16 at 09:00; Stop 09/03/16 at 10:33; Status DC Levofloxacin/ Dextrose (Levaquin Per Pharmacy) 1 each PRN DAILY PRN MC SEE COMMENTS; Start 08/31/16 at 11:30; Status UNV Potassium Chloride (Klor-Con) 40 meq 1X ONCE PO Last administered on 12:46; Start 08/31/16 at 11:45; Stop 08/31/16 at 11:51; Status DC Levofloxacin/ Dextrose 150 ml @ 100 mls/hr Q24H IV Last administered on 17:16; Start 08/31/16 at 17:00 Linezolid 300 ml @ 300 mls/hr Q12HR IV Last administered on 09/03/16 09:23; Start 09/01/16 at 21:00 Insulin Detemir (Levemir) 70 units QHS SQ Last administered on 09/02/16 22:16 ; Start 09/02/16 at 21:00; Stop 09/03/16 at 07:51; Status DC Furosemide (Lasix) 40 mg 1X ONCE IVP Last administered on 09/02/16 09:28; Start 09/02/16 at 09:30; Stop 09/02/16 at 09:31; Status DC Ibuprofen (Motrin) 600 mg PRN Q6HRS PRN PO INFLAMMATION; Start 09/02/16 at 09: 00; Stop 09/02/16 at 21:00; Status DC Ibuprofen (Motrin) 600 mg BID PO Last administered on 09/03/16 09:00; Start at 21:00 Potassium Chloride (Klor-Con) 40 meq 1X ONCE PO Last administered on 09:23; Start 09/03/16 at 08:00; Stop 09/03/16 at 08:01; Status DC Insulin Aspart (NovoLOG) 15 units TIDAC SQ ; Start 09/03/16 at 11:30 Insulin Detemir (Levemir) 65 units QHS SQ ; Start 09/03/16 at 21:00 Enoxaparin Sodium (Lovenox 40mg Syringe) 40 mg Q12H SQ ; Start 09/03/16 at 21:00 Active Scripts Active Reported Geodon (Ziprasidone Hcl) 40 Mg Capsule 1 Cap PO BID Trazodone Hcl 50 Mg Tablet 1 Tab PO QHS Janumet 50-1,000 Mg Tablet (Sitagliptin Phos/Metformin Hcl) 1 Each Tablet 1 Tab PO BID Propranolol Hcl 10 Mg Tablet 1 Tab PO BID Novolog (Insulin Aspart) 100 Unit/1 Ml Cartridge 20 Unit SQ TIDBFRMEAL Lantus Solostar (Insulin Glargine,Hum.rec.anlog) 100 Unit/1 Ml Insuln.pen 76 Unit SQ QHS Hydrocodone-Apap 5-325 (Hydrocodone Bit/Acetaminophen) 1 Each Tablet 1 Tab PO PRN Q6HRS PRN Doxycycline Hyclate 100 Mg Capsule 1 Cap PO BID Divalproex Sodium Er (Divalproex Sodium) 500 Mg Tab.er.24h 2,000 Mg PO DAILY Bupropion Xl (Bupropion Hcl) 300 Mg Tab.er.24h 1 Tab PO DAILYWBKFT Benazepril Hcl 40 Mg Tablet 1 Tab PO DAILY Atorvastatin Calcium 20 Mg Tablet 1 Tab PO DAILY Vitals/I & O Vital Sign - Last 24 Hours 09/02/16 09/02/16 09/02/16 09/02/16 12:00 12:00 15:45 16:00 Temp 98.0 98.6 98.0 98.6 Pulse 87 85 Resp 26 26 B/P (MAP) 145/90 (108) 178/88 (118) Pulse Ox 94 97 96 O2 Delivery High Flow Nasal Cannula Nasal Cannula High Flow Nasal Cannula Nasal Cannula O2 Flow Rate 15.0 12.0 15.0 12.0 09/02/16 09/02/16 09/02/16 09/02/16 17:16 19:14 19:16 19:25 Temp 97.8 97.8 Pulse 85 94 94 94 Resp 21 19 B/P (MAP) 178/88 181/77 (111) 173/83 (113) 173/83 Pulse Ox 93 95 O2 Delivery High Flow Nasal Cannula Nasal Cannula O2 Flow Rate 12.0 15.0 09/02/16 09/02/16 09/02/16 09/02/16 20:00 20:21 20:26 21:11 Pulse 108 B/P (MAP) 174/84 Pulse Ox 95 95 O2 Delivery Nasal Cannula High Flow Nasal Cannula High Flow Nasal Cannula O2 Flow Rate 12.0 15.0 15.0 09/03/16 09/03/16 09/03/16 09/03/16 00:00 04:31 07:33 08:00 Pulse 96 93 Resp 17 B/P (MAP) 120/66 (84) 140/82 (101) Pulse Ox 89 93 99 O2 Delivery BiPAP/CPAP BiPAP/CPAP High Flow Nasal Cannula Nasal Cannula O2 Flow Rate 10.0 6.0 09/03/16 09/03/16 09/03/16 09/03/16 08:00 08:59 09:00 11:43 Temp 97.6 97.6 Pulse 80 80 80 Resp 14 B/P (MAP) 141/86 (104) 141/86 141/86 Pulse Ox 96 O2 Delivery High Flow Nasal Cannula High Flow Nasal Cannula O2 Flow Rate 6.0 2.0 Intake and Output 09/02/16 09/02/16 09/03/16 14:59 22:59 06:59 Intake Total 800 ml 1640 ml 561 ml Output Total 3500 ml 1150 ml Balance -2700 ml 490 ml 561 ml MARRY WOODS MD Sep 03, 2016 11:59
[2016-09-03 12:00] VITALS: BP 138/76
--- NOTE | 2016-09-03 12:01 | PDOC ---
PULMONARY PROGRESS NOTES Subjective NO NEW COMPLAINTS Vitals Vital Signs Date Time Temp Pulse Resp B/P (MAP) Pulse Ox O2 Delivery O2 Flow Rate FiO2 09/03/16 11:43 High Flow Nasal Cannula 2.0 09/03/16 09:00 80 141/86 09/03/16 08:00 97.6 14 96 97.6 ROS: No Nausea, No Abdominal Pain, No Increase Cough General: Alert HEENT: Other (nc at perrl, shallow oropharynx, nose clear, neck...no lap, thyromegaly) Lungs: Clear Cardiovascular: S1, S2 Abdomen: Soft, Non-tender, Other (no mass) Neuro Exam: Alert Extremities: Other (DECREASE EDEMA) Skin: Warm Labs Laboratory Tests Test 09/01/16 12:14 09/01/16 17:21 09/01/16 21:21 09/02/16 04:45 Glucose (Fingerstick) 145 mg/dL (70-99) 117 mg/dL (70-99) 136 mg/dL (70-99) Sodium Level 145 mmol/L (136-145) Potassium Level 3.5 mmol/L (3.5-5.1) Chloride Level 105 mmol/L (98-107) Carbon Dioxide Level 30 mmol/L (21-32) Anion Gap 10 (6-14) Blood Urea Nitrogen 13 mg/dL (8-26) Creatinine 0.9 mg/dL (0.7-1.3) Estimated GFR (Cockcroft-Gault) 91.7 Glucose Level 64 mg/dL (70-99) Calcium Level 8.1 mg/dL (8.5-10.1) Test 09/02/16 08:10 09/02/16 08:13 09/02/16 11:27 09/02/16 16:58 White Blood Count 13.4 x10^3/uL (4.0-11.0) Red Blood Count 3.90 x10^6/uL (4.30-5.70) Hemoglobin 13.5 g/dL (13.0-17.5) Hematocrit 39.4 % (39.0-53.0) Mean Corpuscular Volume 101 fL (79-100) Mean Corpuscular Hemoglobin 35 pg (25-35) Mean Corpuscular Hemoglobin Concent 34 g/dL (31-37) Red Cell Distribution Width 13.0 % (11.5-14.5) Platelet Count 203 x10^3/uL (140-400) Neutrophils (%) (Auto) 61 % (31-73) Lymphocytes (%) (Auto) 24 % (24-48) Monocytes (%) (Auto) 11 % (0-9) Eosinophils (%) (Auto) 3 % (0-3) Basophils (%) (Auto) 1 % (0-3) Neutrophils # (Auto) 8.2 x10^3uL (1.8-7.7) Lymphocytes # (Auto) 3.3 x10^3/uL (1.0-4.8) Monocytes # (Auto) 1.5 x10^3/uL (0.0-1.1) Eosinophils # (Auto) 0.3 x10^3/uL (0.0-0.7) Basophils # (Auto) 0.2 x10^3/uL (0.0-0.2) Glucose (Fingerstick) 78 mg/dL (70-99) 177 mg/dL (70-99) 65 mg/dL (70-99) Test 09/02/16 21:07 09/03/16 05:45 09/03/16 08:57 09/03/16 11:48 Glucose (Fingerstick) 117 mg/dL (70-99) 81 mg/dL (70-99) 141 mg/dL (70-99) White Blood Count 11.5 x10^3/uL (4.0-11.0) Red Blood Count 3.89 x10^6/uL (4.30-5.70) Hemoglobin 13.4 g/dL (13.0-17.5) Hematocrit 38.7 % (39.0-53.0) Mean Corpuscular Volume 99 fL (79-100) Mean Corpuscular Hemoglobin 35 pg (25-35) Mean Corpuscular Hemoglobin Concent 35 g/dL (31-37) Red Cell Distribution Width 13.1 % (11.5-14.5) Platelet Count 192 x10^3/uL (140-400) Neutrophils (%) (Auto) 61 % (31-73) Lymphocytes (%) (Auto) 27 % (24-48) Monocytes (%) (Auto) 9 % (0-9) Eosinophils (%) (Auto) 2 % (0-3) Basophils (%) (Auto) 1 % (0-3) Neutrophils # (Auto) 7.0 x10^3uL (1.8-7.7) Lymphocytes # (Auto) 3.1 x10^3/uL (1.0-4.8) Monocytes # (Auto) 1.0 x10^3/uL (0.0-1.1) Eosinophils # (Auto) 0.3 x10^3/uL (0.0-0.7) Basophils # (Auto) 0.1 x10^3/uL (0.0-0.2) Sodium Level 142 mmol/L (136-145) Potassium Level 3.2 mmol/L (3.5-5.1) Chloride Level 103 mmol/L (98-107) Carbon Dioxide Level 30 mmol/L (21-32) Anion Gap 9 (6-14) Blood Urea Nitrogen 13 mg/dL (8-26) Creatinine 0.9 mg/dL (0.7-1.3) Estimated GFR (Cockcroft-Gault) 91.7 Glucose Level 92 mg/dL (70-99) Uric Acid 7.5 mg/dL (3.5-7.2) Calcium Level 8.4 mg/dL (8.5-10.1) Laboratory Tests Test 09/02/16 16:58 09/02/16 21:07 09/03/16 05:45 09/03/16 08:57 Glucose (Fingerstick) 65 mg/dL (70-99) 117 mg/dL (70-99) 81 mg/dL (70-99) White Blood Count 11.5 x10^3/uL (4.0-11.0) Red Blood Count 3.89 x10^6/uL (4.30-5.70) Hemoglobin 13.4 g/dL (13.0-17.5) Hematocrit 38.7 % (39.0-53.0) Mean Corpuscular Volume 99 fL (79-100) Mean Corpuscular Hemoglobin 35 pg (25-35) Mean Corpuscular Hemoglobin Concent 35 g/dL (31-37) Red Cell Distribution Width 13.1 % (11.5-14.5) Platelet Count 192 x10^3/uL (140-400) Neutrophils (%) (Auto) 61 % (31-73) Lymphocytes (%) (Auto) 27 % (24-48) Monocytes (%) (Auto) 9 % (0-9) Eosinophils (%) (Auto) 2 % (0-3) Basophils (%) (Auto) 1 % (0-3) Neutrophils # (Auto) 7.0 x10^3uL (1.8-7.7) Lymphocytes # (Auto) 3.1 x10^3/uL (1.0-4.8) Monocytes # (Auto) 1.0 x10^3/uL (0.0-1.1) Eosinophils # (Auto) 0.3 x10^3/uL (0.0-0.7) Basophils # (Auto) 0.1 x10^3/uL (0.0-0.2) Sodium Level 142 mmol/L (136-145) Potassium Level 3.2 mmol/L (3.5-5.1) Chloride Level 103 mmol/L (98-107) Carbon Dioxide Level 30 mmol/L (21-32) Anion Gap 9 (6-14) Blood Urea Nitrogen 13 mg/dL (8-26) Creatinine 0.9 mg/dL (0.7-1.3) Estimated GFR (Cockcroft-Gault) 91.7 Glucose Level 92 mg/dL (70-99) Uric Acid 7.5 mg/dL (3.5-7.2) Calcium Level 8.4 mg/dL (8.5-10.1) Test 09/03/16 11:48 Glucose (Fingerstick) 141 mg/dL (70-99) Medications Active Scripts Medications Dose Route/Sig Max Daily Dose Days Date Category Geodon (Ziprasidone Hcl) 40 Mg Capsule 1 Cap PO BID 08/29/16 Reported Trazodone Hcl 50 Mg Tablet 1 Tab PO QHS 08/29/16 Reported Janumet 50-1,000 Mg Tablet (Sitagliptin Phos/Metformin Hcl) 1 Each Tablet 1 Tab PO BID 08/29/16 Reported Propranolol Hcl 10 Mg Tablet 1 Tab PO BID 08/29/16 Reported Novolog (Insulin Aspart) 100 Unit/1 Ml Cartridge 20 Unit SQ TIDBFRMEAL 08/29/16 Reported Lantus Solostar (Insulin Glargine,Hum.rec.anlog) 100 Unit/1 Ml Insuln.pen 76 Unit SQ QHS 08/29/16 Reported Hydrocodone-Apap 5-325 (Hydrocodone Bit/Acetaminophen) 1 Each Tablet 1 Tab PO PRN Q6HRS PRN 08/29/16 Reported Doxycycline Hyclate 100 Mg Capsule 1 Cap PO BID 08/29/16 Reported Divalproex Sodium Er (Divalproex Sodium) 500 Mg Tab.er.24h 2,000 Mg PO DAILY 08/29/16 Reported Bupropion Xl (Bupropion Hcl) 300 Mg Tab.er.24h 1 Tab PO DAILYWBKFT 08/29/16 Reported Benazepril Hcl 40 Mg Tablet 1 Tab PO DAILY 08/29/16 Reported Atorvastatin Calcium 20 Mg Tablet 1 Tab PO DAILY 08/29/16 Reported Impression . 1. Acute hypoxemic respiratory failure, multifactorial 2. Abnormal chest x-ray. 3. Ex-smoker ?chronic obstructive pulmonary disease. 4. Obstructive sleep apnea-hypopnea syndrome. 5. Hypertension. 6. Diabetes mellitus. 7. Obesity. 8. Cellulitis. 9. CTA with possible thrombus, venous Doppler lower ext negative Plan . HOME ON 03 13 WITH CPAP RX WRITTEN LASIX LEVO FOR HOME FOLLOW UP WITH ME IN OFFICE KEEGAN GERARD MD Sep 03, 2016 12:01
[2016-09-03] MEDS ORDERED: FUROSEMIDE 40 MG/4 ML VIAL. IVP ONE (13:15)
--- NOTE | 2016-09-03 15:20 | PDOC3 ---
Discharge Summary [facility] Date of Admission: Aug 29, 2016 Discharge Date: Sep 03, 2016 Admitting Diagnosis Acute hypoxic respiratory failure multifactorial. HAP, obesity hypoventilation left side Abdominal wall cellulitis: Resolving Leukocytosis Morbid obesity Hyperglycemia with type 2 diabetes mellitus insulin-dependent left wrist pain, with arthritis? gout? pseudogout? Problems: Final Diagnosis CONSULTS card pulm id Brief Hospital Course Mr. Ann is a 46 old M, recently dced from , came for sob. he has been treated for hAP with multiple abx, in ICU need bipap at night, and high flow during daytime. pt also has left side abd cellulitis, resolved with abx. pt feels good now, no cough, CXR better, CPAP at home, need nC 2 L at rest, and 6L exertional. cont levaquin. dc home, dc time 35min, General: Alert, Oriented X3 Heart: Regular rate, Normal S1, Normal S2 Lungs: Clear Abdomen: Normal bowel sounds, Other (edema +2) Extremities: No clubbing, Other (left wrist mild swelling) Skin: Other (decreased redness on the abdomen) Patient History: COPD (chronic obstructive pulmonary disease) 33 FATHER Problems: Disposition home CONDITION AT DISCHARGE: Improved Diet regular Scheduled Atorvastatin Calcium (Atorvastatin Calcium), 1 TAB PO DAILY, (Reported) Benazepril Hcl (Benazepril Hcl), 1 TAB PO DAILY, (Reported) Bupropion Hcl (Bupropion Xl), 1 TAB PO DAILYWBKFT, (Reported) Divalproex Sodium (Divalproex Sodium Er), 2,000 MG PO DAILY, (Reported) Insulin Aspart (Novolog), 20 UNIT SQ TIDBFRMEAL, (Reported) Insulin Glargine,Hum.rec.anlog (Lantus Solostar), 76 UNIT SQ QHS, (Reported) Propranolol Hcl (Propranolol Hcl), 1 TAB PO BID, (Reported) Sitagliptin Phos/Metformin Hcl (Janumet 50-1,000 Mg Tablet), 1 TAB PO BID, ( Reported) Trazodone Hcl (Trazodone Hcl), 1 TAB PO QHS, (Reported) Ziprasidone Hcl (Geodon), 1 CAP PO BID, (Reported) Scheduled PRN Hydrocodone Bit/Acetaminophen (Hydrocodone-Apap 5-325 ), 1 TAB PO PRN Q6HRS PRN for PAIN, (Reported) Discontinued Medications Doxycycline Hyclate (Doxycycline Hyclate), 1 CAP PO BID, (Reported) Follow Up pcp in 2 weeks MARRY WOODS MD Sep 03, 2016 15:20
[2016-09-03] MEDS ORDERED: INSULIN DETEMIR 300 UNITS/3 ML INSULN.PEN. SQ SCH (21:00)
[2016-09-03] MEDS ORDERED: ENOXAPARIN 40 MG/0.4 ML SYRINGE. SQ SCH (21:00)
== END 2016-09-03 16:45 | disposition home or self-care (01) | DRG 189 ==
LOC: ER 10:09 → 1 WEST ICU 11:15
PROVIDERS: ADMIT Internal Medicine; ATTEND Internal Medicine
PROC: 5A09557 Assistance with Respiratory Ventilation, Greater than 96 Consecutive Hours, Continuous Positive Airway Pressure (ICD-10-PCS; principal; 2016-08-29)
DX: J96.01 Acute respiratory failure with hypoxia (principal); J18.9 Pneumonia, unspecified organism; I50.31 Acute diastolic (congestive) heart failure; Z68.42 Body mass index [BMI] 45.0-49.9, adult; J44.0 Chronic obstructive pulmonary disease with (acute) lower respiratory infection; L03.311 Cellulitis of abdominal wall; I11.0 Hypertensive heart disease with heart failure; E11.65 Type 2 diabetes mellitus with hyperglycemia; E66.01 Morbid (severe) obesity due to excess calories; E78.5 Hyperlipidemia, unspecified; G47.33 Obstructive sleep apnea (adult) (pediatric); Y95 Nosocomial condition; Z80.1 Family history of malignant neoplasm of trachea, bronchus and lung; Z82.49 Family history of ischemic heart disease and other diseases of the circulatory system; Z86.14 Personal history of Methicillin resistant Staphylococcus aureus infection; Z87.891 Personal history of nicotine dependence; Z88.0 Allergy status to penicillin; E11.42 Type 2 diabetes mellitus with diabetic polyneuropathy; E11.649 Type 2 diabetes mellitus with hypoglycemia without coma; F31.9 Bipolar disorder, unspecified; M19.90 Unspecified osteoarthritis, unspecified site; Z82.5 Family history of asthma and other chronic lower respiratory diseases; M10.9 Gout, unspecified; M11.20 Other chondrocalcinosis, unspecified site
CPT/HCPCS: 36415; 36600; 51701; 71010; 71275; 73100; 80048; 80053; 80202; 82553; 82805; 82962; 83605; 83735; 83880; 84484; 84550; 85027; 87040; 87205; 87641; 93005; 93970; 94250; 94620; 94640; 94660; 94799; 96365; 96366; 96375; C8924; C8929; J0360; J1650; J1815; J1940; J1956; J2020; J3370; J3490; J7040; J7620; J7626; Q9967; 97530; 99285-25; Q9950